=== PATIENT | female | born 1945 | race Caucasian/White ===

== ENCOUNTER 2016-11-09 15:52 | Inpatient (IN) | payer MEDICARE, BC ==
[2016-11-09] VITALS (9 sets, daily range): BP systolic 136–159; BP diastolic 58–68; PULSE 88–105; RESP 18–20; TEMP 95.7–96.9; O2SAT 92–100; Ht 157.5 cm; Wt 76.2 kg
[~2016-11-09] VITALS: Ht 157.5 cm; Wt 76.2 kg
[~2016-11-09 15:52] MED LIST: ASPI-483 PO; ATEN50TA PO; CLOP75TA33 PO; GABA-338 PO; INSU100C11 SQ; INSU100C14 SQ; LOSA50TA52 PO; NITR1PAT62 TOP; POLY17PO6 PO; ROSU20TA PO; SENN-152 PO
--- NOTE | 2016-11-09 15:52 | NUR ---
ARRIVAL pt arrived to medical unit at 1552, from [facility] by EMS, via cart. vitals and weight were taken and entered. pt was assessed and made comfortable.
[2016-11-09] MEDS ORDERED: NORMAL SALINE 1,000 ML IV SCH (16:11)
--- OUTSIDE RECORDS SUMMARY | 2016-11-09 16:13 | XMS REPORT | CCD ---
Author Author CONRAD RAMIRES Organization Unknown Address [address], [place] [id number] Phone 0 Care Team Providers Care Dermatology Physician Name Role Phone KEVIN SILVA Attending Physician [phone] Vital Signs Unknown or Not Available. Allergies Allergy Code Allergy Type Reaction Status PCN (penicillin) 0 Drug allergy Active ZOCOR 308246 Drug allergy Active CODEINE 2670 Drug allergy Active LIPITOR 531747 Drug allergy Active MORPHINE 7052 Drug allergy Active Procedures Unknown or Not Available. History of Immunizations Immunization Code Date pneumococcal, unspecified formulation 109 07/11/2011 Problems Problem Code Start Date Resolved Date Status DIABETES MELLITUS TYPE 2, UNCONTROLLED 461717325 Active HYPOKALEMIA 09380670 Active Results BASIC METABOLIC - Collect Date/Time: 09/01/2016 09:45 Test Name Code Test Result Test Units Test Ref Range GLUCOSE 213 mg/dL L=70 H=110 BUN 56 mg/dL L=7 H=18 CREATININE 1.91 mg/ dL L=0.60 H=1.30 AGE 71 YEARS GFR 25.8 L=60.0 H=120 SODIUM 138 mmol/L L=136 H=145 POTASSIUM 4.6 mmol/ L L=3.5 H=5.1 CHLORIDE 101 mmol/L L=98 H=107 CO2 29 mmol/L L=21 H=32 CALCIUM 9.2 mg/dL L=8.5 H=10.1 MAGNESIUM - Collect Date/Time: 09/01/2016 09:45 Test Name Code Test Result Test Units Test Ref Range MAGNESIUM 2.4 mg/dL L=1.8 H=2.4 Active Medications Medication Code Dose Units Frequency Route Modification Start Date/Time Lantus 100U/1ML Subcutaneous Solution 312049 45 EACH AT BEDTIME SUBCUTANEOUS 05/16/2015 08:24 Prescription Detail 45 EACH SUBCUTANEOUS AT BEDTIME Lasix 20MG Oral Tablet 696313 20 MILLIGRAMS every other day ORAL 05/16/2015 08:24 Prescription Detail 20 MILLIGRAMS ORAL every other day Losartan Potassium 50MG Oral Tablet 175092 50 MILLIGRAMS DAILY ORAL 05/16/2015 08:24 Prescription Detail 50 MILLIGRAMS ORAL DAILY Vitamin B12 1000MCG/1ML Intramuscular Solution 331572 1 EACH EVERY MONTH INTRAMUSCULAR 05/16/2015 08: 24 Prescription Detail 1 EACH INTRAMUSCULAR EVERY MONTH Atenolol 50MG Oral Tablet 819676 25 MILLIGRAMS TWICE A DAY ORAL 04/02/2015 10:15 Prescription Detail 25 MILLIGRAMS ORAL TWICE A DAY Clopidogrel 75MG Oral Tablet 247764 75 MILLIGRAMS AT BEDTIME ORAL 04/02/2015 10:15 Prescription Detail 75 MILLIGRAMS ORAL AT BEDTIME Crestor 20MG Oral Tablet 967537 20 MILLIGRAMS AT BEDTIME ORAL 04/02/2015 10:15 Prescription Detail 20 MILLIGRAMS ORAL AT BEDTIME Niacin 500MG Oral Capsule 44074257664 500 MILLIGRAMS DAILY ORAL 04/02/2015 10:15 Prescription Detail 500 MILLIGRAMS ORAL DAILY Nitro-Dur 0.2MG/1HR Transdermal Patch, Extended Release 449058 1 EACH DAILY TRANSDERMAL 04/02/2015 10:15 Prescription Detail 1 EACH TRANSDERMAL DAILY Vitamin D3 1000IU Oral Tablet 58497748148 1000 INTERNATIONAL UNITS FOUR TIMES A DAY ORAL 04/02/2015 10:15 Prescription Detail 1000 INTERNATIONAL UNITS ORAL FOUR TIMES A DAY Vitamin E 400IU Oral Tablet 328243 400 INTERNATIONAL UNITS FOUR TIMES A DAY ORAL 04/02/2015 10:15 Prescription Detail 400 INTERNATIONAL UNITS ORAL FOUR TIMES A DAY Aspirin 81MG Oral Tablet 192876 81 MILLIGRAMS DAILY ORAL 10/04/2011 09:25 Prescription Detail 81 MILLIGRAMS ORAL DAILY Medications Administered During Visit Unknown or Not Available. Encounters Unknown or Not Available. Social History Smoking Status Code Start Date End Date Unknown if ever smoked 107466660 Patient Decision Aids Unknown or Not Available. Discharge Instructions You were admitted to [facility] on 09/01/2016 09:36 You had the following tests done: BASIC METABOLIC MAGNESIUM You were discharged from [facility] on 09/01/2016 09:36 Should you have any questions prior to discharge, please contact a member of your healthcare team. If you have left the hospital and have any questions, please contact your primary care physician. Chief Complaint and Reason For Visit Chief Complaint Date of Onset LAB Function Status Unknown or Not Available. Plan of Care Unknown or Not Available. Referral/Transition of Care Unknown or Not Available.
--- OUTSIDE RECORDS SUMMARY | 2016-11-09 16:13 | XMS REPORT ---
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
--- OUTSIDE RECORDS SUMMARY | 2016-11-09 16:13 | XMS REPORT ---
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 Problem Coronary Artery Disease 414.01 Active Problem Shortness Of Breath 786.05 Active Problem 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 Active Problem Chronic obstructive pulmonary disease, unspecified J44.9 Active Problem Atherosclerotic heart disease of [place] coronary artery without angina pectoris I25.10 Active Problem Nonrheumatic aortic (valve) stenosis I35.0 Active Problem 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
--- OUTSIDE RECORDS SUMMARY | 2016-11-09 16:13 | XMS REPORT | CCD ---
Author Author CONRAD RAMIRES Organization Unknown Address [address], [place] [id number] Phone 0 Care Team Providers Care Weekday Babysitter Name Role Phone BHARAT MARCUM Attending Physician 0 BHARAT MARCUM Primary Surgeon 0 Vital Signs Unknown or Not Available. Allergies Allergy Code Allergy Type Reaction Status PCN (penicillin) 0 Drug allergy Active ZOCOR 891646 Drug allergy Active CODEINE 2670 Drug allergy Active LIPITOR 692332 Drug allergy Active MORPHINE 7052 Drug allergy Active Procedures Procedure Code Procedure Type Date CHEST [address] 02/16/2016 History of Immunizations Immunization Code Date pneumococcal, unspecified formulation 109 07/11/2011 Problems Problem Code Start Date Resolved Date Status DIABETES MELLITUS TYPE 2, UNCONTROLLED 713519418 Active HYPOKALEMIA 51624263 Active Results BASIC METABOLIC - Collect Date/Time: 02/16/2016 03:40 Test Name Code Test Result Test Units Test Ref Range GLUCOSE 278 mg/dL L=70 H=110 BUN 33 mg/dL L=7 H=18 CREATININE 1.46 mg/ dL L=0.60 H=1.30 AGE 71 YEARS GFR 35.2 SODIUM 138 mmol/L L=136 H=145 POTASSIUM 4.3 mmol/ L L=3.5 H=5.1 CHLORIDE 101 mmol/L L=98 H=107 CO2 28 mmol/L L=21 H=32 CALCIUM 8.8 mg/dL L=8.5 H=10.1 CBC W/ DIFF - Collect Date/Time: 02/16/2016 03:40 Test Name Code Test Result Test Units Test Ref Range WBC 19.9 x10^3 L=4.8 H=10.8 RBC 3.73 x10^6 L=4.20 H=5.40 HEMOGLOBIN 10.8 g/ dL L=12.0 H=16.0 HEMATOCRIT 33.3 % L=37.0 H=47.0 MCV 89 fL L=80 H=100 MCH 28.9 pg L=27.0 H=33.0 MCHC 32.3 g/dL L=33.0 H=37.0 RDW 15.9 % L=11.5 H=14.5 PLATELETS 474 x10^3 L=150 H=450 MPV 7.6 fL L=7.8 H=11.0 NEUTROPHILS 67.2 % L=40.0 H=80.0 LYMPHOCYTES 24.7 % L=20.0 H=45.0 MONOCYTES 6.9 % L=0.0 H=10.0 EOSINOPHILS 0.9 % L=0.0 H=5.0 BASOPHILS 0.3 % L=0.0 H=2.0 REFLEX MAN DIFF NO N /A UA AUTO W/ MICRO - Collect Date/Time: 02/16/2016 04:04 Test Name Code Test Result Test Units Test Ref Range COLOR Yellow N/A NORMAL: Yellow APPEARANCE Clear N/ A NORMAL: Clear GLUCOSE 500 N/A NORMAL: Negative BILIRUBIN Negative N /A NORMAL: Negative KETONE Negative N/A NORMAL: Negative SPEC GRAVITY 1.025 N /A NORMAL: 1.005-1.030 BLOOD Small N/A NORMAL: Negative PROTEIN >=300 N/A NORMAL: Negative PH 5.5 N/A NORMAL: 5.0-8.0 UROBILINOGEN 0.2 N/ A NORMAL: Negative NITRITE Negative N/ A NORMAL: Negative LEUKOCYTES Negative N/A NORMAL: Negative MICRO RBC 2-5 N/A NORMAL: 0-2 MICRO WBC 10-20 N/A NORMAL: 0-2 BACTERIA 1+ N/A NORMAL: None-Trace EPI CELLS 5-10 N/A NORMAL: 0-15 MUCUS None Seen N/A NORMAL: None-Small AMORPHOUS None Seen N/A NORMAL: None Seen YEAST None Seen N/A NORMAL: None Seen CRYSTALS None Seen N /A NORMAL: None Seen CAST None Seen N/A NORMAL: None Seen URINE CULTURE? YES N /A CULTURE URINE - Collect Date/Time: 02/16/2016 04:04 Test Name Code Test Result Test Units Test Ref Range SPEC SOURCE: R N/A Urine Culture, Routine 630-4 Final report N/A Active Medications Unknown or Not Available. Medications Administered During Visit Unknown or Not Available. Encounters Encounter Diagnosis Diagnosis Code Start Date Chronic obstructive pulmonary disease with (acute) exacerbation J441 02/16/2016 Social History Smoking Status Code Start Date End Date Unknown if ever smoked 039834118 Patient Decision Aids Unknown or Not Available. Discharge Instructions You were admitted to [facility] on 02/16/2016 03:00 with a principal diagnosis of Chronic obstructive pulmonary disease w (acute) exacerb You had the following tests done: BASIC METABOLIC CBC W/ DIFF CULTURE URINE UA AUTO W/ MICRO You were discharged from [facility] on 02/16/2016 05:25 Should you have any questions prior to discharge, please contact a member of your healthcare team. If you have left the hospital and have any questions, please contact your primary care physician. Chief Complaint and Reason For Visit Chief Complaint Date of Onset SHORTNESS OF BREATH 02/16/2016 Function Status Unknown or Not Available. Plan of Care Unknown or Not Available. Referral/Transition of Care Unknown or Not Available.
--- OUTSIDE RECORDS SUMMARY | 2016-11-09 16:13 | XMS REPORT ---
Author Kai Gant [facility] eClinical[employer] Address Unknown Phone Unavailable Care Team Providers Care International Sales Manager Name Role Phone Kai Tyler CP Unavailable Allergies, Adverse Reactions, Alerts Substance Reaction Event Type Zocor Info Not Available Drug Allergy lipitor Info Not Available Non Drug Allergy codeine nausea Non Drug Allergy morphine ? 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 Problem Atherosclerotic heart disease of [place] coronary artery without angina pectoris I25.10 Active Problem Nonrheumatic aortic (valve) stenosis I35.0 Active Problem 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 Problem Type 2 diabetes mellitus without complications E11.9 Active Problem Essential (primary) hypertension I10 Active Assessment 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 Active Problem Diabetes Mellitus, Type II, Not Stated As Uncontrolled 250.00 Active Assessment Type 2 diabetes mellitus without complications E11.9 Active Assessment Chronic obstructive pulmonary disease, unspecified J44.9 Active Problem CAD 414.01 Active Problem Dyslipidemia 272.4 Active Problem COPD 496 Active Problem Aortic Valve Stenosis 424.1 Active Assessment Atherosclerotic heart disease of [place] coronary artery without angina pectoris I25.10 Active Problem CHF, Combined Systolic & Diastolic Heart Failure, 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 Active Problem Hypertension 401.9 Active Medications Medication Code System Code Instructions Start Date End Date Status Dosage Nitrostat [facility] [address]-18 0.4 MG Sublingual every 0 hrs 1 tablet under the tongue and allow to dissolve as needed Oxygen NDC 0 2 l nc as directed Niacin [facility] [address]-20 500 MG Orally Once a day 1 tablet P40-Xozuwf [facility] 32105-06633 1 MG Orally not defined Demadex [facility] [address]-40 20 MG Orally Once a day May 02, 2015 1 tablet Nitro-Dur [facility] [address]-82 0.2 MG/HR Transdermal Once a day 1 patch to skin remove after 12 hours Iron [facility] 59963-68066 325 (65 Fe) MG Orally bid 1 tablet Humalog [facility] [address]-74 100 UNIT/ML Subcutaneous as directed Gabapentin [facility] [address]-09 300 MG Orally prn-tid 1 capsule Doxycycline Hyclate [facility] [address]-12 100 MG Orally bid 1 tablet Lantus [facility] [address]-07 100 UNIT/ML Subcutaneous not defined Nexium 24HR [facility] [address]-11 20 MG Orally prn 1 capsule Atenolol [facility] [address]-06 50 MG Orally bid 1/2 tablet Aspirin [facility] [address]-22 81 MG Orally Once a day 1 tablet Losartan Potassium [facility] [address]-70 50 MG Orally qd 1 tab Plavix [facility] [address]-12 75 MG Orally Once a day 1 tablet Vitamin D [facility] 44405-34727 1000 UNIT Orally Once a day 1 capsule Crestor [facility] [address]-63 20 MG Orally Once a day 1 tablet Vitamin E [facility] [address]-96 400 UNIT Orally Once a day 1 capsule Procedures Procedure Coding System Code Date Office Visit, Est Pt., Level 3 CPT-4 56298 May 29, 2015 Vital Signs Date/Time: May 29, 2015 BMI 31.09 Index Weight 170.0 lbs Height 62 in Cardiac Monitoring Heart Rate 71 /min Oximetry 90% % Blood Pressure Diastolic 54 mm Hg Blood Pressure Systolic 128 mm Hg Results No Known Results Summary Purpose eClinicalWorks Submission
--- OUTSIDE RECORDS SUMMARY | 2016-11-09 16:14 | XMS REPORT | Continuity of Care Document ---
Author Author [facility] Organization [facility] Address Unknown Phone Unavailable Allergies Active Description Code Type Severity Reaction Onset Reported/Identified Relationship to Patient Clinical Status Yes atorvastatin calcium atorvastatin calcium Drug Allergy Unknown N/A 06/24/2012 Yes morphine morphine Drug Allergy Severe PASSES OUT 01/19/2014 Yes codeine codeine Drug Allergy Moderate RASH NAUSEA 01/19/2014 Yes Penicillins Penicillins Drug Allergy Moderate RASH 01/19/2014 Yes simvastatin simvastatin Drug Allergy Mild MUSCLE PAIN 01/19/2014 Yes atorvastatin calcium atorvastatin calcium Drug Allergy Unknown MUSCLE PAIN 01/19/2014 Medications Problems Date Dx Coded Attending Type Code Diagnosis Diagnosed By 06/24/2012 Kai Tyler MD 238.71 ESSENTIAL THROMBOCYTHEMIA 06/24/2012 Kai Tyler MD 250.60 DIAB W NEURO MANIFEST, TYPE II OR UNSPEC TYPE, NOT 06/24/2012 Kai Tyler MD 250.80 DIAB W OTH SPEC MANIFEST, TYPE II OR UNSPEC TYPE, 06/24/2012 Kai Tyler MD 272.4 HYPERLIPIDEMIA NEC/NOS 06/24/2012 Kai Tyler MD 276.8 HYPOPOTASSEMIA 06/24/2012 Kai Tyler MD 285.9 ANEMIA NOS 06/24/2012 Kai Tyler MD 300.00 ANXIETY STATE NOS 06/24/2012 Kai Tyler MD 357.2 NEUROPATHY IN DIABETES 06/24/2012 Kai Tyler MD 401.9 HYPERTENSION NOS 06/24/2012 Kai Tyler MD 410.72 AC MYOCARD INFARCT,SUBENDO INFARCT,SUBSEQ EPISODE 06/24/2012 Kai Tyler MD 414.01 CORONARY ATHEROSCLEROSIS OF [place] CORONARY VESSEL 06/24/2012 Kai Tyler MD 428.0 CONGESTIVE HEART FAILURE NOS 06/24/2012 Kai Tyler MD 786.50 CHEST PAIN NOS 06/24/2012 Kai Tyler MD V14.0 HX-PENICILLIN ALLERGY 06/24/2012 Kai Tyler MD V14.5 HX-NARCOTIC ALLERGY 06/24/2012 Kai Tyler MD V58.66 LONG-TERM (CURRENT) USE OF ASPIRIN 06/24/2012 Kai Tyler MD V58.67 LONG-TERM (CURRENT) USE OF INSULIN 01/19/2014 Kai Tyler MD 250.60 DIAB W NEURO MANIFEST, TYPE II OR UNSPEC TYPE, NOT 01/19/2014 Kai Tyler MD 272.4 HYPERLIPIDEMIA NEC/NOS 01/19/2014 Kai Tyler MD 327.23 OBSTRUCTIVE SLEEP APNEA (ADULT) (PEDIATRIC ) 01/19/2014 Kai Tyler MD 357.2 NEUROPATHY IN DIABETES 01/19/2014 Kai Tyler MD 401.9 HYPERTENSION NOS 01/19/2014 Kai Tyler MD 410.71 AC MYOCARDIAL INFARCT,SUBENDO INFARCT, INITIAL EPIS 01/19/2014 Kai Tyler MD 412 OLD MYOCARDIAL INFARCT 01/19/2014 Kai Tyler MD 414.01 CORONARY ATHEROSCLEROSIS OF [place] CORONARY VESSEL 01/19/2014 Kai Tyler MD 428.0 CONGESTIVE HEART FAILURE NOS 01/19/2014 Kai Tyler MD 799.02 HYPOXEMIA 01/19/2014 Kai Tyler MD V15.82 HISTORY OF TOBACCO USE Procedures Code Description Performed By Performed On 37.22 LEFT HEART CARDIAC CATH Kai Tyler MD 06/24/2012 88.53 LT HEART ANGIOCARDIOGRAM Kai Tyler MD 06/24/2012 88.56 CORONAR ARTERIOGR-2 CATH Kai Tyler MD 06/24/2012 00.40 PROCEDURE ON SINGLE VESSEL Eusebio Soria MD 01/19/2014 00.45 INSERTION OF ONE VASCULAR STENT Eusebio Soria MD 01/19/2014 00.66 PERCUTANEOUS TRANSLUMINAL CORONARY ANGIOPLASTY [PT Eusebio Soria MD 01/19/2014 36.07 INSRT OF DRUG-ELUTING CORON ARTERY STENTS(S) Eusebio Soria MD 01/19/2014 37.22 LEFT HEART CARDIAC CATH Kai Tyler MD 01/19/2014 88.53 LT HEART ANGIOCARDIOGRAM Kai Tyler MD 01/19/2014 88.56 CORONAR ARTERIOGR-2 CATH Kai Tyler MD 01/19/2014 Results Test Result Range MRSA SURVEILLANCE SCREEN - 06/24/12 11:35 Uncategorized BLOOD CULTURE - 06/24/12 11:42 Uncategorized B-TYPE NATRIURETIC PEPTIDE - 06/24/12 11:56 B-TYPE NATRIURETIC PEPTIDE 159 pg/mL < 100 CBC - 06/24/12 11:56 MEAN CELL HGB 30.6 pg 27.0-33.0 MEAN CELL HGB CONCENTRATION 33.2 g/dL 32.0-37.0 MEAN CELL VOLUME 92.3 fl 80.0-100.0 RED BLOOD CELL 2.84 m/cumm 4.00-6.00 RED CELL DISTRIBUTION WIDTH 13.7 % 11.0- 15.6 WHITE BLOOD CELL 11.0 k/cumm 5.0-10.0 HEMOGLOBIN 8.7 gm/dL 12.0-16.0 HEMATOCRIT 26.2 % 37.0-47.0 PLATELET COUNT 494 k/cumm 150-400 HEMOGLOBIN A1C - 06/24/12 11:56 HEMOGLOBIN A1C 8.1 % < 5.7 PROTHROMBIN TIME WITH INR - 06/24/12 11:56 INTERNATIONAL NORMAL RATIO 1.1 0.9-1.1 PROTHROMBIN TIME 11.3 sec 9.3-12.2 PARTIAL THROMBOPLASTIN TIME - 06/24/12 11:56 PARTIAL THROMBOPLASTIN TIME 27 sec 24-36 METABOLIC PANEL, COMPREHN - 06/24/12 11:56 POTASSIUM 3.3 mmol/L 3.5-5.3 EST GFR (MDRD) > 60 mL/min > 59 ANION GAP 7 mmol/L 5-15 EST CrCl (CG) 53 mL/min > 59 GLUCOSE 95 mg/dL 70-99 CALCIUM 8.8 mg/dL 8.5-10.1 BLOOD UREA NITROGEN 11 mg/dL 7-20 CREATININE 0.8 mg/dL 0.6-1.0 SODIUM 139 mmol/L 135-148 CHLORIDE 99 mmol/L 98-110 AST/SGOT 21 Units/L 10-37 ALT/SGPT 16 Units/L < 66 CARBON DIOXIDE 33 mmol/L 21-32 TOTAL PROTEIN 7.7 gm/dL 6.4-8.2 ALBUMIN 2.7 gm/dL 3.4-5.0 BILI TOTAL 0.7 mg/dL 0.0-1.0 ALKALINE PHOSPHATASE TOTAL 57 Units/L 50- 136 LIPID PANEL - 06/24/12 11:56 CHOLESTEROL/HDL RATIO 5.0 < 5.0 LDL CHOLESTEROL 120 mg/dL < 100 VLDL CHOLESTEROL 28 mg/dL < 30 TRIGLYCERIDES 141 mg/dL < 150 CHOLESTEROL 185 mg/dL < 200 HDL CHOLESTEROL 37 mg/dL > 39 CREATINE KINASE (CK/CPK) - 06/24/12 11:56 CREATINE KINASE (CK/CPK) 48 Units/L < 193 CK MB - 06/24/12 11:56 CK MB < 0.5 ng/mL < 4.0 MAGNESIUM - 06/24/12 11:56 MAGNESIUM 1.5 mg/dL 1.8-2.4 TROPONIN I - 06/24/12 11:56 TROPONIN I 0.07 ng/mL < 0.07 BLOOD CULTURE - 06/24/12 11:56 Uncategorized URINALYSIS, ROUTINE - 06/24/12 12:05 UA LEUKOCYTE ESTERASE DIPSTICK NEGATIVE NEGATIVE UA NITRITE DIPSTICK NEGATIVE NEGATIVE UA PROTEIN DIPSTICK TRACE NEGATIVE UA GLUCOSE DIPSTICK NEGATIVE NEGATIVE UA KETONE DIPSTICK NEGATIVE NEGATIVE UA UROBILINOGEN DIPSTICK NORMAL NORMAL UA BILIRUBIN DIPSTICK NEGATIVE NEGATIVE UA BLOOD DIPSTICK NEGATIVE NEGATIVE UA EPITHELIAL CELLS 2+ epi/hpf 0 - 1+ UA RBC 0 rbc/hpf 0 - 3 UA VOLUME FOR EXAM 12.0 mL (12mL STD) UA WBC 2-5 wbc/hpf 0 - 5 UA SPECIFIC GRAVITY 1.008 1.015-1.025 UR PH 5.0 5.0-7.0 GLUCOSE (POC) - 06/24/12 17:01 GLUCOSE (POC) 159 mg/dL 70-99 CREATINE KINASE (CK/CPK) - 06/24/12 19:07 CREATINE KINASE (CK/CPK) 49 Units/L < 193 CK MB - 06/24/12 19:07 CK MB < 0.5 ng/mL < 4.0 TROPONIN I - 06/24/12 19:07 TROPONIN I 0.07 ng/mL < 0.07 GLUCOSE (POC) - 06/24/12 20:49 GLUCOSE (POC) 34 mg/dL 70-99 GLUCOSE (POC) - 06/24/12 21:19 GLUCOSE (POC) 133 mg/dL 70-99 GLUCOSE (POC) - 06/24/12 23:34 GLUCOSE (POC) 88 mg/dL 70-99 CBC W/DIFF - 06/25/12 03:33 BASOPHIL # 0.1 k/cumm 0.0-0.2 BASOPHIL % 1 % 0-1 EOSINOPHIL # 0.5 k/cumm 0.1-0.5 EOSINOPHIL % 5 % 2-4 GRANULOCYTE # 6.8 k/cumm 2.0-9.0 GRANULOCYTE % 62 % 50-75 LYMPHOCYTE # 2.7 k/cumm 1.0-4.0 LYMPHOCYTE % 24 % 20-30 MEAN CELL HGB 30.7 pg 27.0-33.0 MEAN CELL HGB CONCENTRATION 31.4 g/dL 32.0-37.0 MEAN CELL VOLUME 97.8 fl 80.0-100.0 MONOCYTE # 0.9 k/cumm 0.1-1.0 MONOCYTE % 8 % 4-6 RED BLOOD CELL 2.77 m/cumm 4.00-6.00 RED CELL DISTRIBUTION WIDTH 13.7 % 11.0- 15.6 WHITE BLOOD CELL 10.9 k/cumm 5.0-10.0 HEMOGLOBIN 8.5 gm/dL 12.0-16.0 HEMATOCRIT 27.1 % 37.0-47.0 PLATELET COUNT 535 k/cumm 150-400 METABOLIC PANEL, BASIC - 06/25/12 03:33 POTASSIUM 4.1 mmol/L 3.5-5.3 EST GFR (MDRD) > 60 mL/min > 59 ANION GAP 8 mmol/L 5-15 EST CrCl (CG) 47 mL/min > 59 GLUCOSE 130 mg/dL 70-99 CALCIUM 8.7 mg/dL 8.5-10.1 BLOOD UREA NITROGEN 16 mg/dL 7-20 CREATININE 0.9 mg/dL 0.6-1.0 SODIUM 135 mmol/L 135-148 CHLORIDE 97 mmol/L 98-110 CARBON DIOXIDE 36.2 mmol/L 22.0-30.0 CREATINE KINASE (CK/CPK) - 06/25/12 03:33 CREATINE KINASE (CK/CPK) 26 Units/L < 193 CK MB - 06/25/12 03:33 CK MB < 0.5 ng/mL < 4.0 TROPONIN I - 06/25/12 03:33 TROPONIN I < 0.04 ng/mL < 0.07 IRON W/ BINDING CAPACITY - 06/25/12 03:33 IRON SATURATION 12 % SAT 11-46 IRON BINDING CAPACITY, TOTAL 242 mcg/dL 250-450 IRON 28 mcg/dL 35-150 VITAMIN B12 - 06/25/12 03:33 VITAMIN B12 186 pg/mL 211-911 FOLIC ACID,SERUM - 12/15/12 03:33 FOLIC ACID,SERUM > 24.0 ng/mL > 3.4 GLUCOSE (POC) - 06/25/12 12:07 GLUCOSE (POC) 203 mg/dL 70-99 GLUCOSE (POC) - 06/25/12 18:00 GLUCOSE (POC) 171 mg/dL 70-99 GLUCOSE (POC) - 06/25/12 20:21 GLUCOSE (POC) 195 mg/dL 70-99 B-TYPE NATRIURETIC PEPTIDE - 06/26/12 04:55 B-TYPE NATRIURETIC PEPTIDE 84 pg/mL < 100 CBC - 06/26/12 04:55 MEAN CELL HGB 30.0 pg 27.0-33.0 MEAN CELL HGB CONCENTRATION 31.7 g/dL 32.0-37.0 MEAN CELL VOLUME 94.9 fl 80.0-100.0 RED BLOOD CELL 2.93 m/cumm 4.00-6.00 RED CELL DISTRIBUTION WIDTH 13.6 % 11.0- 15.6 WHITE BLOOD CELL 9.5 k/cumm 5.0-10.0 HEMOGLOBIN 8.8 gm/dL 12.0-16.0 HEMATOCRIT 27.8 % 37.0-47.0 PLATELET COUNT 543 k/cumm 150-400 METABOLIC PANEL, BASIC - 06/26/12 04:55 POTASSIUM 3.6 mmol/L 3.5-5.3 EST GFR (MDRD) > 60 mL/min > 59 ANION GAP 6 mmol/L 5-15 EST CrCl (CG) 53 mL/min > 59 GLUCOSE 149 mg/dL 70-99 CALCIUM 8.7 mg/dL 8.5-10.1 BLOOD UREA NITROGEN 16 mg/dL 7-20 CREATININE 0.8 mg/dL 0.6-1.0 SODIUM 138 mmol/L 135-148 CHLORIDE 97 mmol/L 98-110 CARBON DIOXIDE 35 mmol/L 21-32 GLUCOSE (POC) - 06/26/12 11:51 GLUCOSE (POC) 174 mg/dL 70-99 GRAM STAIN SPUTUM - SPUTUM CULTURE - 06/26/12 15:15 Uncategorized GLUCOSE (POC) - 06/26/12 17:04 GLUCOSE (POC) 98 mg/dL 70-99 GLUCOSE (POC) - 06/26/12 20:34 GLUCOSE (POC) 205 mg/dL 70-99 CBC - 06/27/12 05:12 MEAN CELL HGB 30.0 pg 27.0-33.0 MEAN CELL HGB CONCENTRATION 31.5 g/dL 32.0-37.0 MEAN CELL VOLUME 95.3 fl 80.0-100.0 RED BLOOD CELL 3.17 m/cumm 4.00-6.00 RED CELL DISTRIBUTION WIDTH 13.5 % 11.0- 15.6 WHITE BLOOD CELL 9.6 k/cumm 5.0-10.0 HEMOGLOBIN 9.5 gm/dL 12.0-16.0 HEMATOCRIT 30.2 % 37.0-47.0 PLATELET COUNT 551 k/cumm 150-400 METABOLIC PANEL, BASIC - 06/27/12 05:12 POTASSIUM 4.2 mmol/L 3.5-5.3 EST GFR (MDRD) > 60 mL/min > 59 ANION GAP 4 mmol/L 5-15 EST CrCl (CG) 47 mL/min > 59 GLUCOSE 120 mg/dL 70-99 CALCIUM 9.4 mg/dL 8.5-10.1 BLOOD UREA NITROGEN 18 mg/dL 7-20 CREATININE 0.9 mg/dL 0.6-1.0 SODIUM 139 mmol/L 135-148 CHLORIDE 98 mmol/L 98-110 CARBON DIOXIDE 37 mmol/L 21-32 GLUCOSE (POC) - 06/27/12 06:25 GLUCOSE (POC) 128 mg/dL 70-99 GLUCOSE (POC) - 06/27/12 11:57 GLUCOSE (POC) 223 mg/dL 70-99 GLUCOSE (POC) - 06/27/12 18:04 GLUCOSE (POC) 75 mg/dL 70-99 GLUCOSE (POC) - 06/27/12 20:53 GLUCOSE (POC) 260 mg/dL 70-99 CBC - 06/28/12 05:03 MEAN CELL HGB 30.2 pg 27.0-33.0 MEAN CELL HGB CONCENTRATION 31.7 g/dL 32.0-37.0 MEAN CELL VOLUME 95.1 fl 80.0-100.0 RED BLOOD CELL 3.08 m/cumm 4.00-6.00 RED CELL DISTRIBUTION WIDTH 13.4 % 11.0- 15.6 WHITE BLOOD CELL 9.8 k/cumm 5.0-10.0 HEMOGLOBIN 9.3 gm/dL 12.0-16.0 HEMATOCRIT 29.3 % 37.0-47.0 PLATELET COUNT 563 k/cumm 150-400 METABOLIC PANEL, COMPREHN - 06/28/12 05:03 POTASSIUM 4.4 mmol/L 3.5-5.3 EST GFR (MDRD) 59 mL/min > 59 ANION GAP 9 mmol/L 5-15 EST CrCl (CG) 43 mL/min > 59 GLUCOSE 117 mg/dL 70-99 CALCIUM 9.5 mg/dL 8.5-10.1 BLOOD UREA NITROGEN 19 mg/dL 7-20 CREATININE 1.0 mg/dL 0.6-1.0 SODIUM 138 mmol/L 135-148 CHLORIDE 96 mmol/L 98-110 AST/SGOT 21 Units/L 10-37 ALT/SGPT 15 Units/L < 66 CARBON DIOXIDE 33 mmol/L 21-32 TOTAL PROTEIN 7.1 gm/dL 6.4-8.2 ALBUMIN 2.4 gm/dL 3.4-5.0 BILI TOTAL 0.8 mg/dL 0.0-1.0 ALKALINE PHOSPHATASE TOTAL 52 Units/L 50- 136 GLUCOSE (POC) - 06/28/12 05:53 GLUCOSE (POC) 118 mg/dL 70-99 GLUCOSE (POC) - 06/28/12 12:09 GLUCOSE (POC) 215 mg/dL 70-99 B-TYPE NATRIURETIC PEPTIDE - 01/19/14 09:01 B-TYPE NATRIURETIC PEPTIDE 122 pg/mL < 100 CBC - 01/19/14 09:01 MEAN CELL HGB 31.1 pg 27.0-33.0 MEAN CELL HGB CONCENTRATION 32.4 g/dL 32.0-37.0 MEAN CELL VOLUME 95.8 fl 80.0-100.0 RED BLOOD CELL 3.12 m/cumm 4.00-6.00 RED CELL DISTRIBUTION WIDTH 13.1 % 11.0- 15.6 WHITE BLOOD CELL 10.7 k/cumm 5.0-10.0 HEMOGLOBIN 9.7 gm/dL 12.0-16.0 HEMATOCRIT 29.9 % 37.0-47.0 PLATELET COUNT 366 k/cumm 150-400 HEMOGLOBIN A1C - 01/19/14 09:01 HEMOGLOBIN A1C 10.2 % < 5.7 PROTHROMBIN TIME WITH INR - 01/19/14 09:01 INTERNATIONAL NORMAL RATIO 0.9 0.9-1.1 PROTHROMBIN TIME 10.1 sec 9.3-12.2 PARTIAL THROMBOPLASTIN TIME - 01/19/14 09:01 PARTIAL THROMBOPLASTIN TIME 27 sec 24-36 METABOLIC PANEL, COMPREHN - 01/19/14 09:01 POTASSIUM 4.4 mmol/L 3.5-5.3 EST GFR (MDRD) 43 mL/min > 59 ANION GAP 9 mmol/L 5-15 EST CrCl (CG) 29 mL/min > 59 GLUCOSE 273 mg/dL 70-99 CALCIUM 9.7 mg/dL 8.5-10.1 BLOOD UREA NITROGEN 43 mg/dL 7-20 CREATININE 1.3 mg/dL 0.6-1.0 SODIUM 138 mmol/L 135-148 CHLORIDE 101 mmol/L 98-110 AST/SGOT 53 Units/L 10-37 ALT/SGPT 24 Units/L < 66 CARBON DIOXIDE 28 mmol/L 21-32 TOTAL PROTEIN 7.9 gm/dL 6.4-8.2 ALBUMIN 3.3 gm/dL 3.4-5.0 BILI TOTAL 0.5 mg/dL 0.0-1.0 ALKALINE PHOSPHATASE TOTAL 56 IU/L 45- 117 LIPASE - 01/19/14 09:01 LIPASE 104 Units/L 73-393 CREATINE KINASE (CK/CPK) - 01/19/14 09:01 CREATINE KINASE (CK/CPK) 504 Units/L < 193 CK MB - 01/19/14 09:01 CK MB 34.7 ng/mL < 4.0 THYROID STIM HORMONE (TSH) - 01/19/14 09:01 THYROID STIM HORMONE (TSH) 0.73 uIU/mL 0.34-4.82 TROPONIN I - 01/19/14 09:01 TROPONIN I 13.40 ng/mL < 0.07 GLUCOSE (POC) - 01/19/14 12:28 GLUCOSE (POC) 264 mg/dL 70-99 GLUCOSE (POC) - 01/19/14 15:24 GLUCOSE (POC) 225 mg/dL 70-99 GLUCOSE (POC) - 01/19/14 17:40 GLUCOSE (POC) 187 mg/dL 70-99 GLUCOSE (POC) - 01/19/14 21:58 GLUCOSE (POC) 256 mg/dL 70-99 CBC - 01/20/14 06:41 MEAN CELL HGB 31.1 pg 27.0-33.0 MEAN CELL HGB CONCENTRATION 32.1 g/dL 32.0-37.0 MEAN CELL VOLUME 96.9 fl 80.0-100.0 RED BLOOD CELL 3.22 m/cumm 4.00-6.00 RED CELL DISTRIBUTION WIDTH 13.4 % 11.0- 15.6 WHITE BLOOD CELL 10.6 k/cumm 5.0-10.0 HEMOGLOBIN 10.0 gm/dL 12.0-16.0 HEMATOCRIT 31.2 % 37.0-47.0 PLATELET COUNT 371 k/cumm 150-400 TROPONIN I - 01/20/14 06:41 TROPONIN I 7.85 ng/mL < 0.07 METABOLIC PANEL, COMPREHN - 01/20/14 06:42 POTASSIUM 4.3 mmol/L 3.5-5.3 EST GFR (MDRD) 34 mL/min > 59 ANION GAP 8 mmol/L 5-15 EST CrCl (CG) 24 mL/min > 59 GLUCOSE 186 mg/dL 70-99 CALCIUM 9.0 mg/dL 8.5-10.1 BLOOD UREA NITROGEN 44 mg/dL 7-20 CREATININE 1.6 mg/dL 0.6-1.0 SODIUM 140 mmol/L 135-148 CHLORIDE 104 mmol/L 98-110 AST/SGOT 38 Units/L 10-37 ALT/SGPT 21 Units/L < 66 CARBON DIOXIDE 28 mmol/L 21-32 TOTAL PROTEIN 7.6 gm/dL 6.4-8.2 ALBUMIN 3.1 gm/dL 3.4-5.0 BILI TOTAL 0.6 mg/dL 0.0-1.0 ALKALINE PHOSPHATASE TOTAL 54 IU/L 45- 117 LIPID PANEL - 01/20/14 06:42 CHOLESTEROL/HDL RATIO 4.9 < 5.0 LDL CHOLESTEROL 130 mg/dL < 100 VLDL CHOLESTEROL 44 mg/dL < 30 TRIGLYCERIDES 220 mg/dL < 150 CHOLESTEROL 219 mg/dL < 200 HDL CHOLESTEROL 45 mg/dL > 39 GLUCOSE (POC) - 01/20/14 06:45 GLUCOSE (POC) 183 mg/dL 70-99 GLUCOSE (POC) - 01/20/14 13:00 GLUCOSE (POC) 195 mg/dL 70-99 Encounters ACCT No. Visit Date/Time Discharge Status Pt. Type Provider Facility Loc./Unit Complaint [id number] 01/19/2014 04:55:00 2013 14:40:00 DIS Inpatient Jayson MOSELEY, [facility] W.3CE [id number] 06/24/2012 10:48:00 2011 18:20:00 DIS Inpatient Jayson MOSELEY, [facility] W.3TN
--- OUTSIDE RECORDS SUMMARY | 2016-11-09 16:14 | XMS REPORT ---
Author Kai Gant [facility] [employer] Address Unknown Phone Unavailable Care Team Providers Care Superintendent Operations Division Name Role Phone Kai Tyler CP Unavailable [...] J44.9 Active Problem Atherosclerotic heart disease of [place] coronary artery without angina pectoris I25.10 Active [...]
--- OUTSIDE RECORDS SUMMARY | 2016-11-09 16:14 | XMS REPORT ---
Author Kai Gant [facility] [employer] Address Unknown Phone Unavailable Care Team Providers Care [employer] Electric[employer] Name Role Phone Kai Tyler CP Unavailable [...] diastolic (congestive) heart failure I50.42 Active Assessment Type 2 diabetes mellitus without complications E11.9 Active Problem Chronic obstructive pulmonary disease, unspecified J44.9 Active Assessment Essential (primary) hypertension I10 Active Assessment Nonrheumatic aortic (valve) stenosis I35.0 Active Problem Atherosclerotic heart disease of [place] coronary artery without angina pectoris I25.10 Active Problem Nonrheumatic aortic (valve) stenosis I35.0 Active Problem 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 Problem Type 2 diabetes mellitus without complications E11.9 Active Problem Essential (primary) hypertension I10 Active Assessment Atherosclerotic heart disease of [place] coronary artery without angina pectoris I25.10 Active Problem Diabetes Mellitus, Type II, Not Stated As Uncontrolled 250.00 Active Assessment Chronic obstructive pulmonary disease, unspecified J44.9 Active Assessment 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 Active Problem CAD 414.01 Active Problem Dyslipidemia 272.4 Active Problem COPD 496 Active Problem Aortic Valve Stenosis 424.1 Active Assessment 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 Problem CHF, Combined Systolic & Diastolic Heart Failure, 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 Active Problem Hypertension 401.9 Active Medications Medication Code System Code Instructions Start Date End Date Status Dosage Nitro-Dur [facility] [address]-07 0.2 MG/HR Transdermal Once a day 1 patch to skin remove after 12 hours Nitrostat [facility] [address]-53 0.4 MG Sublingual every 0 hrs 1 tablet under the tongue and allow to dissolve as needed Aspirin [facility] [address]-17 81 MG Orally Once a day 1 tablet Plavix [facility] [address]-83 75 MG Orally Once a day 1 tablet Vitamin E [facility] [address]-37 400 UNIT Orally Once a day 1 capsule Lantus [facility] [address]-56 100 UNIT/ML Subcutaneous not defined Atenolol [facility] [address]-21 50 MG Orally Once a day 1/2 tablet Demadex [facility] [address]-46 20 MG Orally Once a day 1 tablet Crestor [facility] [address]-90 20 MG Orally Once a day 1 tablet O24-Rrizbq [facility] 59650-[address]256 1 MG Orally not defined Doxycycline Hyclate [facility] [address]-39 100 MG Orally bid 1 tablet Oxygen ND 0 2 l nc as directed Nexium 24HR [facility] [address]-57 20 MG Orally Once a day 1 capsule Losartan Potassium [facility] [address]-82 50 MG Orally qd 1 tab Humalog [facility] [address]-83 100 UNIT/ML Subcutaneous as directed Gabapentin [facility] [address]-48 300 MG Orally prn 1 capsule Cranberry [facility] 22474-49432 500 MG Orally as directed Vitamin D [facility] 15944-05642 1000 UNIT Orally Once a day 1 capsule Niacin [facility] [address]-12 500 MG Orally Once a day 1 tablet Procedures Procedure Coding System Code Date Office Visit, Est Pt., Level 3 CPT-4 94148 May 01, 2015 Vital Signs Date/Time: May 01, 2015 BMI 30.36 Index Weight 166.0 lbs Height 62 in Cardiac Monitoring Heart Rate 77 /min Oximetry 90% % Blood Pressure Diastolic 70 mm Hg Blood Pressure Systolic 136 mm Hg Results No Known Results Summary Purpose eClinicalWorks Submission
--- OUTSIDE RECORDS SUMMARY | 2016-11-09 16:14 | XMS REPORT | Referral Summary ---
Author Organization Unknown Address Unknown Phone Unavailable Encounter VC Date(s): 08/13/14 - 08/16/14 [address] [place] [address] Discharge Diagnosis: Bradycardia Discharge Diagnosis: Near syncope Discharge Diagnosis: Anemia Discharge Disposition: Home or Self Care Attending Physician: Jessa Son MD Admitting Physician: Nicholas Haddad MD Vital Signs Most recent to 1 oldest [Reference Range]: Temperature Oral 36.6 degC [35.8-37.3 degC] (08/16/14 12:51 PM) Peripheral Pulse 70 bpm Rate [60-100 bpm] (08/16/14 3:29 PM) Heart Rate Monitored 60 bpm [60-100 bpm] (08/13/14 4:00 PM) Respiratory Rate 18 br/min [14-20 br/min] (08/16/14 12:51 PM) Blood Pressure 171/63 mmHg [90-140/60-90 mmHg] *HI* (08/16/14 3:29 PM) Mean Arterial 90 mmHg Pressure, Cuff (08/13/14 4:00 PM) Most recent to 1 oldest [Reference Range]: SpO2 92 % (08/16/14 12:51 PM) Problem List Condition Effective Dates Status Health Status Informant Acute Active pain(Confirmed) At risk for unstable Active blood glucose level(Confirmed)1 Bowel Active dysfunction(Confirme d)2 Congestive heart Active patient failure(Confirmed) Coronary artery Active patient disease(Confirmed) Hypertension(Confirm Active patient ed) Impaired gas Active exchange(Confirmed)3 Myocardial Active patient infarction(Confirmed ) Tobacco Active patient user(Confirmed) 1Problem added automatically by system based on initiation of At Risk for Unstable Blood Glucose Plan of Care 2Problem added automatically by system based on initiation of Bowel Dysfunction Plan of Care 3Problem added automatically by system based on initiation of Impaired Gas Exchange Plan of Care Allergies, Adverse Reactions, Alerts Substance Reaction Severity Status codeine Active morphine Active penicillin Active Medications acetaminophen 325 mg oral tablet 2 tabs, Oral, q4hr, Other (See Comment), 0 Refill(s) Start Date: 08/16/14 Status: Ordered aspirin 81 mg, Oral, Daily, 0 Refill(s) Start Date: 08/13/14 Status: Ordered atenolol 25 mg oral tablet 1 tabs, Oral, Daily, 0 Refill(s) Start Date: 08/16/14 Status: Ordered atenolol 50 mg oral tablet 0.05 tabs, Oral, Daily, # 1.5 tabs, 0 Refill(s), other reason (Rx) Start Date: 08/16/14 Status: Ordered Colace 100 mg oral capsule 1 caps, Oral, BID, Constipation, 0 Refill(s) Start Date: 08/16/14 Status: Ordered Cranberry oral tablet 1 tabs, Oral, Daily, 0 Refill(s) Start Date: 08/13/14 Status: Ordered Fish Oil 2 caps, Oral, Daily, 0 Refill(s) Start Date: 08/13/14 Status: Ordered HumaLOG 21 units, SubCutaneous, TIDAC, 0 Refill(s) Start Date: 08/13/14 Status: Ordered Keflex 500 mg oral capsule 1 caps, Oral, q8hr, # 12 caps, 0 Refill(s) Start Date: 08/16/14 Stop Date: 08/20/14 Status: Ordered Lantus 50 units, SubCutaneous, Bedtime (once a day), 0 Refill(s) Start Date: 08/13/14 Status: Ordered meclizine 25 mg oral tablet 1 tabs, Oral, q8hr, # 8 tabs, 0 Refill(s), other reason (Rx) Start Date: 08/16/14 Stop Date: 08/18/14 Status: Ordered niacin 500 mg, Oral, Daily, 0 Refill(s) Start Date: 08/13/14 Status: Ordered nitroglycerin 0.2 mg/hr transdermal film, extended release 1 patches, TransDermal, Daily, 0 Refill(s) Start Date: 08/13/14 Status: Ordered Norvasc 5 mg oral tablet 1 tabs, Oral, Daily, 0 Refill(s) Start Date: 08/16/14 Status: Ordered Plavix 75 mg, Oral, Bedtime (once a day), 0 Refill(s) Start Date: 08/13/14 Status: Ordered pravastatin 60 mg, Oral, Bedtime (once a day), 0 Refill(s) Start Date: 08/13/14 Status: Ordered PriLOSEC 40 mg oral delayed release capsule 1 caps, Oral, Bedtime (once a day), # 30 caps, 0 Refill(s) Start Date: 08/16/14 Status: Ordered Vitamin D3 2 caps, Oral, Daily, 0 Refill(s) Start Date: 08/13/14 Status: Ordered vitamin E 2 caps, Oral, Daily, 0 Refill(s) Start Date: 08/13/14 Status: Ordered Results Hematology Most recent to 1 oldest [Reference Range]: WBC [4.8-10.8 K/uL] 12.3 K/uL *HI* (08/16/14 9:43 AM) RBC [4.00-5.20 M/uL] 3.34 M/uL *LOW* (08/16/14 9:43 AM) Hgb [12.0-16.0 9.7 gm/dL gm/dL] *LOW* (08/16/14 9:43 AM) Hct [37.0-47.0 %] 30.0 % *LOW* (08/16/14 9:43 AM) MCV [82.0-99.0 fL] 89.8 fL (08/16/14 9:43 AM) MCH [27.0-32.0 pg] 29.0 pg (08/16/14 9:43 AM) MCHC [32.0-36.0 32.3 gm/dL gm/dL] (08/16/14 9:43 AM) RDW [11.5-14.5 %] 15.3 % *HI* (08/16/14 9:43 AM) Platelet [150-400 536 K/uL K/uL] *HI* (08/16/14 9:43 AM) MPV [9.4-12.4 fL] 8.7 fL *LOW* (08/16/14 9:43 AM) Immature 0.2 % Granulocytes (08/14/14 7:54 AM) [0.0-1.0 %] Neutrophils [51-75 81 % %] *HI* (08/14/14 7:54 AM) Lymphocytes [20-46 17 % %] *LOW* (08/14/14 7:54 AM) Monocytes [4-11 %] 1 % *LOW* (08/14/14 7:54 AM) Eosinophils [0-4 %] 0 % (08/14/14 7:54 AM) Basophils [0-2 %] 0 % (08/14/14 7:54 AM) Neutro Absolute 8.17 THOUS [1.90-7.00 THOUS] *HI* (08/14/14 7:54 AM) Lymph Absolute 1.72 THOUS [0.80-3.30 THOUS] (08/14/14 7:54 AM) [place] Absolute 0.14 THOUS [0.30-1.00 THOUS] *LOW* (08/14/14 7:54 AM) Eos Absolute 0.00 THOUS [0.00-0.50 THOUS] (08/14/14 7:54 AM) Baso Absolute 0.01 THOUS [0.00-0.20 THOUS] (08/14/14 7:54 AM) Nucleated RBC 0.0 /100 WBC Automated [0 /100 (08/14/14 7:54 AM) WBC] Chemistry Most recent to 1 oldest [Reference Range]: Sodium Lvl [136-144 141 mEq/L mEq/L] (08/16/14 9:43 AM) Potassium Lvl 3.5 mEq/L [3.6-5.1 mEq/L] *LOW* (08/16/14 9:43 AM) Chloride [99-109 107 mEq/L mEq/L] (08/16/14 9:43 AM) CO2 [22-32 mEq/L] 24 mEq/L (08/16/14 9:43 AM) AGAP [3-20] 10 (08/16/14 9:43 AM) BUN [4-20 mg/dL] 34 mg/dL *HI* (08/16/14 9:43 AM) Glucose Lvl [70-100 145 mg/dL mg/dL] *HI* (08/16/14 9:43 AM) Creatinine Lvl 1.33 mg/dL [0.44-1.03 mg/dL] *HI* (08/16/14 9:43 AM) eGFR [>60] 39 2 *ABN* (08/16/14 9:43 AM) Calcium Lvl 9.3 mg/dL [8.6-10.0 mg/dL] (08/16/14 9:43 AM) Albumin Lvl [3.5-4.8 3.6 gm/dL gm/dL] (08/13/14 1:11 PM) Total Protein 8.4 gm/dL [6.1-7.9 gm/dL] *HI* (08/13/14 1:11 PM) Globulin [1.9-4.3 4.8 gm/dL gm/dL] *HI* (08/13/14 1:11 PM) ALT [14-54 unit/L] 19 unit/L (08/13/14 1:11 PM) AST [15-41 unit/L] 25 unit/L (08/13/14 1:11 PM) Alk Phos [26-104 53 unit/L unit/L] (08/13/14 1:11 PM) Bili Total [0.2-1.2 0.8 mg/dL 1 mg/dL] (08/13/14 1:11 PM) Iron [50-170 mcg/dL] 47 mcg/dL *LOW* (08/14/14 7:54 AM) TIBC [286-569 399 mcg/dL mcg/dL] (08/14/14 7:54 AM) Iron Sat [11-46 %] 12 % (08/14/14 7:54 AM) Transferrin [192-382 268 mg/dL mg/dL] (08/14/14 7:54 AM) BNP [0-99 pg/mL] 122 pg/mL *HI* (08/14/14 7:54 AM) Troponin [<0.06 <0.05 ng/mL ng/mL] (08/14/14 1:22 AM) Lipase Lvl [8-48 59 unit/L unit/L] *HI* (08/13/14 1:11 PM) Vitamin B12 Lvl 307 pg/mL [213-816 pg/mL] (08/14/14 7:54 AM) Blood Glucose, 220 mg/dL Capillary [70-100 *HI* mg/dL] (08/16/14 12:55 PM) Chol [0-200 mg/dL] 225 mg/dL *HI* (08/14/14 7:54 AM) Trig [0-150 mg/dL] 112 mg/dL (08/14/14 7:54 AM) HDL [>40 mg/dL] 44 mg/dL (08/14/14 7:54 AM) LDL [0-100 mg/dL] 159 mg/dL *HI* (08/14/14 7:54 AM) VLDL Cholesterol 22 mg/dL [0-30 mg/dL] (08/14/14 7:54 AM) Cardiac Risk 5.1 [0.0-5.0] *HI* (08/14/14 7:54 AM) Hgb A1c [4.1-5.6 %] 7.0 % *HI* (08/14/14 7:54 AM) eAvg Glucose 154.2 mg/dL (08/14/14 7:54 AM) 1Result Comment: Naproxen, specifically the metabolite O-desmethylnaproxen, may cause spurious elevation in Total Bilirubin levels. 2Result Comment: Multiply eGFR results by 1.21 for race. Urinalysis Most recent to 1 oldest [Reference Range]: UA Color Lt Yellow (08/13/14 8:31 PM) UA Appear Clear (08/13/14 8:31 PM) UA pH [5.0-8.0] 5.0 (08/13/14 8:31 PM) UA Leuk Est Pos 1+ [Negative] *ABN* (08/13/14 8:31 PM) UA Nitrite Negative [Negative] (08/13/14 8:31 PM) UA Protein Negative [Negative] (08/13/14 8:31 PM) UA Glucose Negative [Negative] (08/13/14 8:31 PM) UA Ketones Negative [Negative] (08/13/14 8:31 PM) UA Urobilinogen Negative [<1.0] (08/13/14 8:31 PM) UA Bili [Negative] Negative (08/13/14 8:31 PM) UA Blood [Negative] Negative (08/13/14 8:31 PM) UA Spec Grav 1.033 [1.003-1.030] *HI* (08/13/14 8:31 PM) Type Clean Catch (08/13/14 8:31 PM) UA WBC [0-4] 20-50 *ABN* (08/13/14 8:31 PM) UA RBC [0-2] 2-5 (08/13/14 8:31 PM) Epithelial Cells 2-5 (08/13/14 8:31 PM) UA Bacteria Occasional *ABN* (08/13/14 8:31 PM) Blood Bank Results Most recent to 1 oldest [Reference Range]: ABO/Rh A POS (08/15/14 9:53 AM) Antibody Screen Tube NEG (08/15/14 9:53 AM) Microbiology Reports PROCEDURE: Urine Culture STATUS: Auth (Verified) BODY SITE: SOURCE: Urine COLLECTED DATE/TIME: 08/13/14 8:31 PM PROCEDURE: Respiratory Virus Panel - PCR STATUS: Auth (Verified) BODY SITE: SOURCE: Nasopharyngeal Swab COLLECTED DATE/TIME: 08/13/14 7:45 PM PROCEDURE: Blood Culture STATUS: Order in Progress BODY SITE: SOURCE: Blood COLLECTED DATE/TIME: 08/13/14 7:36 PM PROCEDURE: Blood Culture STATUS: Order in Progress BODY SITE: SOURCE: Blood COLLECTED DATE/TIME: 08/13/14 7:31 PM Immunizations No data available for this section Procedures Procedure Date Related Diagnosis Body Site Cardiac catheterization, left heart Carotid endarterectomy1 1left Social History Social History Type Response Smoking Status Former smoker1 1quit 30 years ago Assessment and Plan No data available for this section
[2016-11-09] MEDS ORDERED: BISACODYL 10 MG SUPPOSITORY RECTALLY PRN (16:15)
[2016-11-09] MEDS ORDERED: MILK OF MAGNESIA 30 ML SUSP PO PRN (16:15)
--- OUTSIDE RECORDS SUMMARY | 2016-11-09 16:15 | XMS REPORT ---
Author Kai Gant [facility] eClinicalWorks Address Unknown Phone Unavailable Care Team Providers Care Tufting Supervisor Name Role Phone Kai Tyler CP Unavailable [...] J44.9 Active Problem Atherosclerotic heart disease of [place] coronary artery without angina pectoris I25.10 Active [...]
--- OUTSIDE RECORDS SUMMARY | 2016-11-09 16:15 | XMS REPORT | Continuity of Care Document ---
Author Author [facility] Organization [facility] Address Unknown Phone Unavailable Support Name Relationship Address Phone MARIA G MALDONADO MD Caregiver [address] [place] [address] Unavailable ERIC SILVA "KEVIN" Caregiver [address] [place] [address] Unavailable RODRIGUEZ RAMIREZ Next Of Kin [address] [place] [address] Insurance Providers Guarantor Effie Ramirez Address [address] [place] [address] Email DENIED/NO TO PT [facility] Policy Number [id number] Subscriber's Name Effie Ramirez Relationship 18 Self Group Number [id number] Payer Medicare Policy Number [id number] Subscriber's Name Effie Ramirez Relationship 18 Self Problems Active Problems Medical Problem Onset Date Status Chronic anemia Unknown Chronic Congestive heart failure Unknown Chronic Coronary artery disease Unknown Chronic Diabetes Unknown Chronic Fall Unknown Acute High cholesterol Unknown Chronic Hypertension Unknown Chronic Lumbar compression fracture Unknown Acute On home O2 Unknown Chronic Medications Current Home Medications Medication Dose Units Route Directions Days Qty Instructions Start Date Aspirin (Baby Aspirin) 81 Mg Tab.chew 81 Mg Oral Daily 06/21/12 Atenolol 50 Mg Tablet 0.5 Tab Oral Twice A Day 45 10/09/15 Cholecalciferol (Vitamin D3) (Vitamin D) 1,000 Unit Capsule 1,000 Mg Oral Four Times Daily 10/09/15 Clopidogrel Bisulfate (Clopidogrel) 75 Mg Tablet 1 Tab Oral Daily 60 10/09/15 Gabapentin 300 Mg Capsule 1 Tab Oral As Needed 90 10/09/15 Hydrocodone/Apap 7.5/325 Mg ([place] 7.5-325 Tablet) 1 Each Tablet 1-2 Tab Oral Every 6 Hours as needed for Pain 10/15/15 Insulin Glargine (Lantus) 100 U/Ml Cartridge 40 U Sub-Q Am Insulin Glargine,Hum.rec.anlog (Lantus) 100 Unit/Ml Inj 45 Unit Sub-Q Every Evening 10/09/15 Insulin Lispro (Humalog) 100 Unit/1 Ml Cartridge 24 Unit Sub-Q Three Times Daily With Meals 10/09/15 Losartan Potassium 50 Mg Tablet 50 Mg Oral Daily 10/09/15 Niacin 500 Mg Capsule.sa 500 Mg Oral Daily 06/21/12 Nitroglycerin (Nitroglycerin 24 Hr Patch 0.2 Mg/Hr) 1 Each Patch.td24 1 Patch Topically Daily 30 ON IN AM OFF AT HS 10/09/15 Polyethylene Glycol 3350 (Miralax) 17 Gm Packet 17 Gm Oral Daily 30 Days 10/10/15 Rosuvastatin Calcium (Crestor) 20 Mg Tablet 20 Mg Oral Bedtime Take 1 tablet, by mouth, one time a day at bedtime. 10/09/15 Sennosides/Docusate Sodium (Senna Plus Tablet) 1 Tab Tablet 2 Tab Oral Twice A Day 30 Days 10/10/15 Vitamin B 1 Sub-Q Monthly 10/09/15 Vitamin E (Dl,Tocopheryl Acet) (Vitamin E) 400 Unit Capsule 400 Unit Oral Four Times Daily 10/09/15 Past Home Medications Medication Directions Ordered Status Aspirin 81 Mg Tab.chew, 81 Mg Oral Daily 06/17/12 Discontinued Social History Social History Problem Response Recorded Date/Time Onset Date Status Chewing Tobacco Status No 06/17/2012 1:19pm Not Applicable Not Applicable Hx Substance Use No 10/15/2015 1:25pm Not Applicable Not Applicable Hx Alcohol Use No 10/15/2015 1:25pm Not Applicable Not Applicable Has the pt used tobacco in the last 12 months No 10/16/2015 9:16am Not Applicable Not Applicable Tobacco Usage none 10/09/2015 5:49pm Not Applicable Not Applicable Hospital Discharge Instructions No hospital discharge instructions. Plan of Care Prescriptions See Medication Section Functional Status No functional status results. Allergies, Adverse Reactions, Alerts Allergen Type Severity Reaction Status Last Updated Penicillin Allergy Unknown RASH Active 10/09/15 Morphine Allergy Unknown LOW BP, 'OUT OF IT' Active 10/09/15 Codeine Allergy Unknown Active 10/09/15 Immunizations Query Response on File Recorded Date/Time Hx Influenza Vaccination Y APR 2015 10/15/15 1:25pm Hx Pneumococcal Vaccination Y DOES NOT KNOW WHEN 10/15/15 1:25pm Hx Influenza Vaccination Y APR 2015 10/15/15 1:25pm Influenza Vaccine Hx apr 2015 10/09/15 8:13pm Vital Signs No known vital signs results. Results Laboratory Results Test Name Result Units Flags Reference Collection Date/Time Result Date/ Time Comments White Blood Count 9.8 T/MM3 4.5-11.0 06/30/2016 10:52am 06/30/2016 11: 03am Red Blood Count 3.28 M/MM3 L 4.00-5.20 06/30/2016 10:52am 06/30/2016 11: 03am Hemoglobin 9.8 GM/DL L 12-16 06/30/2016 10:52am 06/30/2016 11:03am Hematocrit 32.2 % L 36-46 06/30/2016 10:52am 06/30/2016 11:03am Mean Corpuscular Volume 98.2 UM3 80-100 06/30/2016 10:52am 06/30/2016 11:03am Mean Corpuscular Hemoglobin 29.9 UUG 26-34 06/30/2016 10:52am 2015 11:03am Mean Corpuscular Hemoglobin Concent 30.4 GM/DL L 31-37 06/30/2016 10: 52am 06/30/2016 11:03am RDW Standard Deviation 49.6 FL 36.9-50.2 06/30/2016 10:52am 06/30/2016 11:03am Platelet Count 364 T/MM3 130-400 06/30/2016 10:52am 06/30/2016 11:03am Mean Platelet Volume 9.6 UM3 9.4-12.4 06/30/2016 10:52am 06/30/2016 11: 03am Neutrophils (%) (Auto) 71.2 % H 33-66 06/30/2016 10:52am 06/30/2016 11: 03am Lymphocytes (%) (Auto) 20.4 % L 23-45 06/30/2016 10:52am 06/30/2016 11: 03am Monocytes (%) (Auto) 6.6 % 0-9.0 06/30/2016 10:52am 06/30/2016 11:03am Eosinophils (%) (Auto) 1.1 % 0-4 06/30/2016 10:52am 06/30/2016 11:03am Basophils (%) (Auto) 0.5 % 0-2 06/30/2016 10:52am 06/30/2016 11:03am Immature Granulocyte % (Auto) 0.2 % 0.0-0.5 06/30/2016 10:52am 2015 11:03am Absolute Neutrophils (auto) 7.0 T/MM3 1.8-7.7 06/30/2016 10:52am 2015 11:03am Absolute Lymphocytes (auto) 2.0 T/MM3 1-4.8 06/30/2016 10:52am 2015 11:03am Absolute Monocytes (auto) 0.7 T/MM3 0-0.8 06/30/2016 10:52am 2015 11:03am Absolute Eosinophils (auto) 0.1 T/MM3 0-0.5 06/30/2016 10:52am 2015 11:03am Absolute Basophils (auto) 0.1 T/MM3 0-0.2 06/30/2016 10:52am 2015 11:03am Absolute Immature Granulocyte (auto 0.02 T/MM3 0.00-0.03 06/30/2016 10: 52am 06/30/2016 11:03am Neutrophils % (Manual) 78.0 % H 33-66 02/25/2016 10:am 02/25/2016 10: 46am Band Neutrophils % 8.0 % H 0-6 02/25/2016 10:am 02/25/2016 10:46am Lymphocytes % (Manual) 13.0 % L 23-45 02/25/2016 10:am 02/25/2016 10: 46am Monocytes % (Manual) 1.0 % 0-9.0 02/25/2016 10:am 02/25/2016 10:46am Band Neutrophils # 1.3 T/MM3 02/25/2016 10:am 02/25/2016 10:46am Absolute Neutrophils (Manual) 13.0 T/MM3 H 1.8-7.7 02/25/2016 10:28am 10:46am Lymphocytes # (Manual) 2.2 T/MM3 1-4.8 02/25/2016 10:28am 02/25/2016 10 :46am Monocytes # (Manual) 0.2 T/MM3 0-0.8 02/25/2016 10:28am 02/25/2016 10: 46am Red Cell Morphology Comment ABNORMAL 02/25/2016 10:28am 02/25/2016 10:46am Anisocytosis 1+ 02/25/2016 10:28am 02/25/2016 10:46am Poikilocytosis 1+ 02/25/2016 10:28am 02/25/2016 10:46am Procedures No known history of procedures. Encounters Encounter Location Arrival/Admit Date Discharge/Depart Date Attending Provider Discharged [facility] 06/30/16 10:34am 07/11/16 11: 59pm MARIA G MALDONADO MD
--- OUTSIDE RECORDS SUMMARY | 2016-11-09 16:15 | XMS REPORT ---
Author Kai Gant [facility] eClinicalWorks Address Unknown Phone Unavailable Care Team Providers Care Online Publisher Name Role Phone Kai Tyler CP Unavailable [...] J44.9 Active Problem Atherosclerotic heart disease of [place] coronary artery without angina pectoris I25.10 Active [...]
--- OUTSIDE RECORDS SUMMARY | 2016-11-09 16:15 | XMS REPORT | CCD ---
Author Author MARIANELA GOLDSTEIN Organization Unknown Address [address], [place] [id number] Phone 0 Care Team Providers Care Machine Hoop Maker Helper Name Role Phone FELI MARY Attending Physician 0 F.JARROD Nurse Assisstant 0 Vital Signs Unknown or Not Available. Allergies Allergy Code Allergy Type Reaction Status PCN (penicillin) 0 Drug allergy Active ZOCOR 155842 Drug allergy Active CODEINE 2670 Drug allergy Active LIPITOR 914828 Drug allergy Active MORPHINE 7052 Drug allergy Active Procedures Unknown or Not Available. History of Immunizations Immunization Code Date pneumococcal, unspecified formulation 109 07/11/2011 Problems Problem Code Start Date Resolved Date Status DIABETES MELLITUS TYPE 2, UNCONTROLLED 040910317 Active HYPOKALEMIA 99515945 Active Results Unknown or Not Available. Active Medications Medication Code Dose Units Frequency Route Modification Start Date/Time LISINOPRIL-HYDROCHLOROTHIAZIDE 0 20 MG- 12.5 MILLIGRAM DAILY By Mouth 10/04/2011 10:30 Aspirin 81MG Oral Tablet 815155 81 MILLIGRAMS DAILY ORAL 10/04/2011 09:25 Fish Oil 1000MG Oral Capsule, Liquid Filled 710177 6168 MILLIGRAMS DAILY ORAL 10/04/2011 09:25 Medications Administered During Visit Unknown or Not Available. Encounters Unknown or Not Available. Social History Smoking Status Code Start Date End Date Unknown if ever smoked 852326333 Patient Decision Aids Unknown or Not Available. Discharge Instructions [facility] on 11/20/2014. You were discharged from [facility] on 11/20/2014. Should you have any questions prior to discharge, please contact a member of your healthcare team. If you have left the hospital and have any questions, please contact your primary care physician. Chief Complaint and Reason For Visit Chief Complaint Date of Onset INFUSION Function Status Unknown or Not Available. Plan of Care Unknown or Not Available. Referral/Transition of Care Unknown or Not Available.
--- OUTSIDE RECORDS SUMMARY | 2016-11-09 16:15 | XMS REPORT ---
Author Kai Gant [facility] eClinicalWorks Address Unknown Phone Unavailable Care Team Providers Care Gate Mortiser Operator Name Role Phone Kai Tyler CP Unavailable [...] J44.9 Active Problem Atherosclerotic heart disease of [place] coronary artery without angina pectoris I25.10 Active [...] Instructions Start Date End Date Status Dosage Torsemide [facility] [id number] 20MG Orally Once a day TAKE ONE TABLET BY MOUTH ONCE DAILY Results No Known Results Summary Purpose eClinicalWorks Submission
--- OUTSIDE RECORDS SUMMARY | 2016-11-09 16:15 | XMS REPORT ---
Author Kai Gant Organization eClinicalWorks Address Unknown Phone Unavailable Care Team Providers Care Bowl Turner Name Role Phone Kai Tyler CP Unavailable [...] Instructions Start Date End Date Status Dosage Demadex [facility] [address]-01 20 MG Orally Once a day May 02, 2015 1 tablet Results No Known Results Summary Purpose eClinicalWorks Submission
--- OUTSIDE RECORDS SUMMARY | 2016-11-09 16:15 | XMS REPORT | CCD ---
Author Author CONRAD RAMIRES Organization Unknown Address [address], [place] [id number] Phone 0 Care Team Providers Care Ironing Worker Name Role Phone KEVIN SILVA Attending Physician [phone] Vital Signs Unknown or Not Available. Allergies Allergy Code Allergy Type Reaction Status PCN (penicillin) 0 Drug allergy Active ZOCOR 850424 Drug allergy Active CODEINE 2670 Drug allergy Active LIPITOR 257345 Drug allergy Active MORPHINE 7052 Drug allergy Active Procedures Procedure Code Procedure Type Date CHEST [address] 08/25/2016 History of Immunizations Immunization Code Date pneumococcal, unspecified formulation 109 07/11/2011 Problems Problem Code Start Date Resolved Date Status DIABETES MELLITUS TYPE 2, UNCONTROLLED 800347750 Active HYPOKALEMIA 46493621 Active Results CARDIAC PANEL - Collect Date/Time: 08/25/2016 15:35 Test Name Code Test Result Test Units Test Ref Range CKMB 1.7 ng/mL L=0.0 H=3.6 CPK 68 U/L L=26 H=308 CKMB% 2.5 % L=0.0 H=4.0 TROPONIN I 0.04 ng/ mL L=0.00 H=0.05 COMP METABOLIC - Collect Date/Time: 08/25/2016 15:35 Test Name Code Test Result Test Units Test Ref Range GLUCOSE 210 mg/dL L=70 H=110 BUN 48 mg/dL L=7 H=18 CREATININE 1.85 mg/ dL L=0.60 H=1.30 AGE 71 YEARS GFR 26.8 L=60.0 H=120 SODIUM 140 mmol/L L=136 H=145 POTASSIUM 4.3 mmol/ L L=3.5 H=5.1 CHLORIDE 102 mmol/L L=98 H=107 CO2 30 mmol/L L=21 H=32 CALCIUM 9.6 mg/dL L=8.5 H=10.1 AST 10 U/L L=15 H=37 ALT 17 U/L L=12 H=78 ALKALINE PHOS 97 U/ L L=50 H=136 TOTAL PROTEIN 8.7 g/ dL L=6.4 H=8.2 ALBUMIN 3.3 g/dL L=3.4 H=5.0 TOTAL BILI 0.70 mg/ dL L=0.00 H=1.00 PRO B-TYPE NATRIURETIC PEPTIDE - Collect Date/Time: 08/25/2016 15:35 Test Name Code Test Result Test Units Test Ref Range PBNP 1496 pg/mL L=0 H=125 CBC W/ DIFF - Collect Date/Time: 08/25/2016 15:35 Test Name Code Test Result Test Units Test Ref Range WBC 14.2 x10^3 L=4.8 H=10.8 RBC 3.81 x10^6 L=4.20 H=5.40 HEMOGLOBIN 11.4 g/ dL L=12.0 H=16.0 HEMATOCRIT 34.5 % L=37.0 H=47.0 MCV 90 fL L=80 H=100 MCH 29.8 pg L=27.0 H=33.0 MCHC 33.0 g/dL L=33.0 H=37.0 RDW 15.2 % L=11.5 H=14.5 PLATELETS 437 x10^3 L=150 H=450 MPV 7.4 fL L=7.8 H=11.0 NEUTROPHILS 69.7 % L=40.0 H=80.0 LYMPHOCYTES 22.5 % L=20.0 H=45.0 MONOCYTES 6.3 % L=0.0 H=10.0 EOSINOPHILS 1.1 % L=0.0 H=5.0 BASOPHILS 0.4 % L=0.0 H=2.0 REFLEX MAN DIFF NO N /A Active Medications Medication Code Dose Units Frequency Route Modification Start Date/Time Lantus 100U/1ML Subcutaneous Solution 799366 45 EACH AT BEDTIME SUBCUTANEOUS 05/16/2015 08:24 Prescription Detail 45 EACH SUBCUTANEOUS AT BEDTIME Lasix 20MG Oral Tablet 20 MILLIGRAMS every other day ORAL 05/16/2015 08:24 Prescription Detail 20 MILLIGRAMS ORAL every other day Losartan Potassium 50MG Oral Tablet 579039 50 MILLIGRAMS DAILY ORAL 05/16/2015 08:24 Prescription Detail 50 MILLIGRAMS ORAL DAILY Vitamin B12 1000MCG/1ML Intramuscular Solution 418551 1 EACH EVERY MONTH INTRAMUSCULAR 05/16/2015 08: 24 Prescription Detail 1 EACH INTRAMUSCULAR EVERY MONTH Atenolol 50MG Oral Tablet 140160 25 MILLIGRAMS TWICE A DAY ORAL 04/02/2015 10:15 Prescription Detail 25 MILLIGRAMS ORAL TWICE A DAY Clopidogrel 75MG Oral Tablet 434227 75 MILLIGRAMS AT BEDTIME ORAL 04/02/2015 10:15 Prescription Detail 75 MILLIGRAMS ORAL AT BEDTIME Crestor 20MG Oral Tablet 298708 20 MILLIGRAMS AT BEDTIME ORAL 04/02/2015 10:15 Prescription Detail 20 MILLIGRAMS ORAL AT BEDTIME Niacin 500MG Oral Capsule [id number] 500 MILLIGRAMS DAILY ORAL 04/02/2015 10:15 Prescription Detail 500 MILLIGRAMS ORAL DAILY Nitro-Dur 0.2MG/1HR Transdermal Patch, Extended Release 347466 1 EACH DAILY TRANSDERMAL 04/02/2015 10:15 Prescription Detail 1 EACH TRANSDERMAL DAILY Vitamin D3 1000IU Oral Tablet 56308735310 1000 INTERNATIONAL UNITS FOUR TIMES A DAY ORAL 04/02/2015 10:15 Prescription Detail 1000 INTERNATIONAL UNITS ORAL FOUR TIMES A DAY Vitamin E 400IU Oral Tablet 247725 400 INTERNATIONAL UNITS FOUR TIMES A DAY ORAL 04/02/2015 10:15 Prescription Detail 400 INTERNATIONAL UNITS ORAL FOUR TIMES A DAY Aspirin 81MG Oral Tablet 884866 81 MILLIGRAMS DAILY ORAL 10/04/2011 09:25 Prescription Detail 81 MILLIGRAMS ORAL DAILY Medications Administered During Visit Unknown or Not Available. Encounters Unknown or Not Available. Social History Smoking Status Code Start Date End Date Unknown if ever smoked 507022313 Patient Decision Aids Unknown or Not Available. Discharge Instructions You were admitted to [facility] on 08/25/2016 15:20 You had the following tests done: CARDIAC PANEL CBC W/ DIFF COMP METABOLIC PRO B-TYPE NATRIURETIC PEPTIDE You were discharged from [facility] on 08/25/2016 15:20 Should you have any questions prior to discharge, please contact a member of your healthcare team. If you have left the hospital and have any questions, please contact your primary care physician. Chief Complaint and Reason For Visit Chief Complaint Date of Onset X RAY/LAB 08/27/2016 Function Status Unknown or Not Available. Plan of Care Unknown or Not Available. Referral/Transition of Care Unknown or Not Available.
--- OUTSIDE RECORDS SUMMARY | 2016-11-09 16:15 | XMS REPORT ---
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
--- OUTSIDE RECORDS SUMMARY | 2016-11-09 16:15 | XMS REPORT | Continuity of Care Document ---
Author Author [facility] Organization [facility] Address Unknown Phone Unavailable Support Name Relationship Address Phone JACQUELYN COOK MD Caregiver [address] [place] [address] Unavailable GUI HAGAN DO Caregiver [address] [place] [address] Unavailable RODRIGUEZ RAMIREZ Next Of Kin [address] [place] [address] Insurance Providers Guarantor Efife Ramirez Address [address] [facility] [address] Email DENIED/NO TO PT [facility] Policy Number [id number] Subscriber's Name Effie Ramirez Relationship 18 Self Group Number [id number] Payer Medicare Policy Number [id number] Subscriber's Name Effie Ramirez Relationship 18 Self Advance Directives Directive Response Recorded Date/Time Resuscitation Documents on File No 10/16/15 8:52am DPOA for Healthcare Only No 10/16/15 8:52am Problems Active Problems Medical Problem Onset Date [...] As Needed 90 10/09/15 Hydrocodone/Apap 7.5/325 Mg ([place] 7.5-325 Tablet) 1 Each Tablet 1-2 Tab [...] none 10/09/2015 5:49pm Not Applicable Not Applicable Query Response Start Date Stop Date Smoking Status Former smoker Hospital Discharge Instructions Current inpatient/outpatient. Discharge instructions are currently unavailable. Plan of Care Current inpatient/outpatient. The plan of care is currently unavailable Functional Status Query Response Date Recorded Ability to complete ADL's impeded by No change October 16, 2015 8:52am Allergies, Adverse Reactions, Alerts Allergen Type Severity [...] Hx apr 2015 10/09/15 8:13pm Vital Signs Acute Vital Signs Vital Response Date/Time Temperature (Fahrenheit) 98.3 deg F (96.8 - 99.1) 10/16/2015 11:38am Temperature (Calculated Celsius) 36.43108 degrees C (36.0 - 37.3) 10/16/2015 11:38am Temperature Source Temporal 10/16/2015 11:38am Pulse Rate (adult) 68 bpm (60 - 100) 10/16/2015 12:55pm Respiratory Rate 18 breaths/min (10 - 20) 10/16/2015 12:55pm O2 Sat by Pulse Oximetry 94 % (90 - 100) 10/16/2015 12:55pm Oxygen Delivery Method Nasal Cannula 10/16/2015 12:55pm Oxygen Flow Rate 2.00 L/min 10/16/2015 12:55pm Blood Pressure 157/70 mm Hg 10/16/2015 12:55pm Blood Pressure Source Automatic Cuff 10/16/2015 12:55pm Height (Feet) 5 feet 10/16/2015 8:50am Height (Inches) 2.00 inches 10/16/2015 8:50am Weight (Kilograms) 78.500 kg 10/16/2015 8:50am Body Mass Index (BMI) 31.7 10/16/2015 8:50am Results Laboratory Results Test Name Result Units Flags Reference Collection Date/Time Result Date/ Time Comments White Blood Count 12.0 T/MM3 H 4.5-11.0 12/31/2015 10:40am 12/31/2015 10 :56am Red Blood Count 3.79 M/MM3 L 4.00-5.20 12/31/2015 10:40am 12/31/2015 10: 56am Hemoglobin 10.9 GM/DL L 12-16 12/31/2015 10:40am 12/31/2015 10:56am Hematocrit 36.4 % 36-46 12/31/2015 10:40am 12/31/2015 10:56am Mean Corpuscular Volume 96.0 UM3 80-100 12/31/2015 10:40am 12/31/2015 10:56am Mean Corpuscular Hemoglobin 28.8 UUG 26-34 12/31/2015 10:40am 2015 10:56am Mean Corpuscular Hemoglobin Concent 29.9 GM/DL L 31-37 12/31/2015 10: 40am 12/31/2015 10:56am RDW Standard Deviation 48.0 FL 36.9-50.2 12/31/2015 10:40am 12/31/2015 10:56am Platelet Count 464 T/MM3 H 130-400 12/31/2015 10:40am 12/31/2015 10: 56am Mean Platelet Volume 9.4 UM3 9.4-12.4 12/31/2015 10:40am 12/31/2015 10: 56am Neutrophils (%) (Auto) 61.4 % 33-66 12/31/2015 10:40am 12/31/2015 10: 56am Lymphocytes (%) (Auto) 29.0 % 23-45 12/31/2015 10:40am 12/31/2015 10: 56am Monocytes (%) (Auto) 7.5 % 0-9.0 12/31/2015 10:40am 12/31/2015 10:56am Eosinophils (%) (Auto) 1.2 % 0-4 12/31/2015 10:40am 12/31/2015 10:56am Basophils (%) (Auto) 0.6 % 0-2 12/31/2015 10:40am 12/31/2015 10:56am Immature Granulocyte % (Auto) 0.3 % 0.0-0.5 12/31/2015 10:40am 2015 10:56am Absolute Neutrophils (auto) 7.3 T/MM3 1.8-7.7 12/31/2015 10:40am 2015 10:56am Absolute Lymphocytes (auto) 3.5 T/MM3 1-4.8 12/31/2015 10:40am 2015 10:56am Absolute Monocytes (auto) 0.9 T/MM3 H 0-0.8 12/31/2015 10:40am 2015 10:56am Absolute Eosinophils (auto) 0.1 T/MM3 0-0.5 12/31/2015 10:40am 2015 10:56am Absolute Basophils (auto) 0.1 T/MM3 0-0.2 12/31/2015 10:40am 2015 10:56am Absolute Immature Granulocyte (auto 0.03 T/MM3 0.00-0.03 12/31/2015 10: 40am 12/31/2015 10:56am Neutrophils % (Manual) 62.0 % 33-66 11/05/2015 11:11am 11/05/2015 11: 40am Band Neutrophils % 2.0 % 0-6 11/05/2015 11:11/05/2015 11:40am Lymphocytes % (Manual) 32.0 % 23-45 11/05/2015 11:11am 11/05/2015 11: 40am Monocytes % (Manual) 2.0 % 0-9.0 11/05/2015 11:11/05/2015 11:40am Eosinophils % (Manual) 2.0 % 0-4 11/05/2015 11:m 11/05/2015 11:40am Band Neutrophils # 0.3 T/MM3 11/05/2015 11:m 11/05/2015 11:40am Absolute Neutrophils (Manual) 10.1 T/MM3 H 1.8-7.7 11/05/2015 11:11am 11:40am Lymphocytes # (Manual) 5.2 T/MM3 H 1-4.8 11/05/2015 11:11/05/2015 11:40am Monocytes # (Manual) 0.3 T/MM3 0-0.8 11/05/2015 11:11am 11/05/2015 11: 40am Eosinophils # (Manual) 0.3 T/MM3 0-0.5 11/05/2015 11:11a11/05/2015 11 :40am Red Cell Morphology Comment ABNORMAL 11/05/2015 11:11am 11/05/2015 11:40am Anisocytosis 1+ 11/05/2015 11:11am 11/05/2015 11:40am Poikilocytosis 1+ 11/05/2015 11:11am 11/05/2015 11:40am Prothromb Time International Ratio 1.07 0.81-1.09 10/16/2015 9:14am 10/16/2015 9:32am THERAPUTIC RANGE=2.00-3.00 FOR ANTI-THROMBOSIS THERAPUTIC RANGE=2.50-3.50 FOR IMPLANTED VALVE Name: EFFIE RAMIREZ Unit #: [id number] : 1945 Sex: F Admit Date: Loc / Svc: CATH Discharge Date: DIAGNOSTIC IMAGING REPORT (Signed) Report #: [id number] [facility] ROSEANNA Irizarry Indication: ITS.REASON PROCEDURE: VERTEBRAL AUGMENTATION, LUMBAR: Encounter: Initial Comparison: MRI lumbar spine 09/29/2015 Procedure: The procedure of L1 vertebroplasty was discussed with the patient including the risks and benefits and she understands and agrees to proceed. The skin was prepped and draped in a sterile fashion. A suitable skin entry site was selected utilizing fluoroscopy and 1% lidocaine was utilized for local anesthesia. A right pedicle approach was utilized at L1 and subsequently, an 11-gauge vertebroplasty trocar was advanced and subsequently the segment was augmented. Subsequently, approximately 4 cc of polymethylmethacrylate was placed into the segment with good dispersion of the cement within the segment and no significant extravasation identified. The patient tolerated the procedure well. Approximately 30 minutes of conscious sedation was utilized by the department nurse. Impression: Successful vertebroplasty/augmentation of L1. . Procedures Procedure Status Date Provider(s) PERQ LUMBOSACRAL INJECTION Completed 10/16/15 GUI HAGAN DO ROUTINE VENIPUNCTURE Completed 10/16/15 CT LUMBAR SPINE W/O DYE Completed 10/16/15 PROTHROMBIN TIME Completed 10/16/15747664"INJECTION, MIDAZOLAM HYDROCHLORIDE, PER 1 MG" Completed 10/16/15543245"INJECTION, MIDAZOLAM HYDROCHLORIDE, PER 1 MG" Completed 10/16/15330424"INJECTION, FENTANYL CITRATE, 0.1 MG" Completed 10/16/15 072197"INFUSION, NORMAL SALINE SOLUTION , 250 CC" Completed 10/16/15 Encounters Encounter Location Arrival/Admit Date Discharge/Depart Date Attending Provider Discharged [facility] 12/31/15 10:35am 01/09/16 7:12pm MARIA G MALDONADO MD Registered [facility] 10/16/15 8:19am GUI HAGAN DO
--- OUTSIDE RECORDS SUMMARY | 2016-11-09 16:15 | XMS REPORT ---
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 378277633 Problem Essential (primary) hypertension I10 Active 38272658 Problem Nonrheumatic aortic (valve) stenosis I35.0 Active 3012644 Assessment Atherosclerotic heart disease of [place] coronary artery without angina pectoris I25.10 Jul, Active 392589837063244 Problem Anemia D64.9 Active 604100625 Problem Old myocardial infarction I25.2 Active 0692086 Problem Chronic obstructive pulmonary disease, unspecified J44.9 Active 33988670 Problem Type 2 diabetes mellitus without complications E11.9 Active 083263338 Problem Atherosclerotic heart disease of [place] coronary artery without angina pectoris I25.10 Active 893338743463711 Problem 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 Active 147669691459213 ALLERGIES Substance Reaction Event Type Date Status Zocor Unknown Drug Allergy Jul, Active lipitor Unknown Non Drug Allergy Jul, Active codeine nausea Non Drug Allergy Jul, Active morphine ? seizures Non Drug Allergy Jul, Active pencillan nausea Non Drug Allergy Jul, Active SOCIAL HISTORY No smoking Hx information available PLAN OF CARE VITAL SIGNS Height 62 in 2016-07-15 Weight 164 lbs 2016-07-15 BMI 29.99 kg/m2 2016-07-15 Oximetry 90% % 2016-07-15 Heart Rate 69 /min 2016-07-15 Blood pressure systolic 184 mm Hg 2016-07-15 Blood pressure diastolic 78 mm Hg 2016-07-15 MEDICATIONS Medication Instructions Dosage Frequency Start Date End Date Duration Status Torsemide 20MG Orally Once every other day TAKE ONE TABLET BY MOUTH ONCE DAILY Active Gabapentin 300 MG Orally prn-tid 1 capsule Active Nitrostat 0.4 MG Sublingual every 0 hrs 1 tablet under the tongue and allow to dissolve as needed Active Atenolol 50 MG Orally bid 1/2 tablet 12h Active Nitro-Dur 0.2 MG/HR Transdermal Once a day 1 patch to skin remove after 12 hours 24h Active Vitamin D 1000 UNIT Orally Once a day 1 capsule 24h Active Albuterol Sulfate (2.5 MG/3ML) 0.083% Inhalation Three times a day 3 ml 8h Active Lantus 100 UNIT/ML Active Oxygen 2 l nc as directed Active Crestor 20 MG Orally Once a day 1 tablet 24h Active Demadex 20 MG Orally Once a day 1 tablet 24h Apr, 30 days Active Aspirin 81 MG Orally Once a day 1 tablet 24h Active Stool Softener 100 MG Orally Once a day 1 tablet as needed 24h Active Niacin 500 MG Orally Once a day 1 tablet 24h Active Plavix 75MG Orally Once a day 1 tablet 24h Active Losartan Potassium 100 MG Orally qd 1 tab 24h Active Vitamin E 400 UNIT Orally Once a day 1 capsule 24h Active Iron 325 (65 Fe) MG Orally bid 1 tablet 12h Active Cyanocobalamin 1000 MCG/ML 1 ml Active Humalog 100 UNIT/ML as directed Active RESULTS No Results PROCEDURES Procedure Date Ordered Related Diagnosis Body Site Office Visit, Est Pt., Level 3 Jul 15, 2016 IMMUNIZATIONS No Known Immunizations
--- OUTSIDE RECORDS SUMMARY | 2016-11-09 16:15 | XMS REPORT | Referral Summary ---
Author Author [facility] Organization [facility] Address Unknown Phone Unavailable Care Team Providers Care Hull Outfit Supervisor Name Role Phone PROVIDER, NOTINSYSTEM Primary Care Physician Unavailable Encounter VC GALARZA [id number] Date(s): 12/26/14 - 12/26/14 [facility] [address] [place] [address] ON Final: FOLLOW-UP EXAMINATION FOLLOWING OTHER SURGERY Final: CONSTIPATION, UNSPECIFIED Final: NAUSEA ALONE Discharge Disposition: 01-Home or Self Care Attending Physician: Anthony Greco MD Vital Signs No data available for this section Problem List Condition Effective Dates Status Health Status Informant Acute Active pain(Confirmed) At risk for unstable Active blood glucose level(Confirmed)1 Bowel Active dysfunction(Confirme d)2 Congestive heart Active patient failure(Confirmed) Constipation(Confirm Active patient ed) Coronary artery Active patient disease(Confirmed) Hypertension(Confirm Active patient ed) Impaired gas Active exchange(Confirmed)3 Impaired skin Active integrity(Confirmed) 4 Myocardial Active patient infarction(Confirmed ) Tobacco Active patient user(Confirmed) 1Problem added automatically by system based on initiation of At Risk for Unstable Blood Glucose Plan of Care 2Problem added automatically by system based on initiation of Bowel Dysfunction Plan of Care 3Problem added automatically by system based on initiation of Impaired Gas Exchange Plan of Care 4Problem added automatically by system based on initiation of Impaired Skin Integrity Plan of Care Allergies, Adverse Reactions, Alerts [...] Date: 08/16/14 Status: Ordered Cranberry oral tablet 2-4 TABS DAILY, Oral, Daily, 84MG EACH, 0 Refill(s) Start Date: 08/13/14 Status: Ordered Crestor 20 mg oral tablet 1 tabs, Oral, Daily, HS, # 30 tabs, 0 Refill(s) Start Date: 10/11/14 Status: Ordered Fish Oil 2 caps, Oral, Daily, 0 Refill(s) Start Date: 08/13/14 Status: Ordered gabapentin 300 mg, Oral, Daily, Other (See Comment), NEUROPATHY, 0 Refill(s) Start Date: 10/11/14 Status: Ordered HumaLOG 24 units, SubCutaneous, TIDAC, 0 Refill(s) Start Date: 08/13/14 Status: Ordered HYDROcodone-acetaminophen 5 mg-325 mg oral tablet 1-2 tabs, Oral, q4hr, Pain Moderate (4-6), 0 Refill(s) Start Date: 10/17/14 Status: Ordered Lantus 40 units, SubCutaneous, BID, 0 Refill(s) Start Date: 08/13/14 Status: Ordered NexIUM 22.3 mg, Oral, Daily, 0 Refill(s) Start Date: 10/11/14 Status: Ordered niacin 500 mg, Oral, Daily, 0 Refill(s) Start Date: 08/13/14 Status: Ordered nitroglycerin 0.2 mg/hr transdermal film, extended release 1 patches, TransDermal, Daily, ON IN AM AND OFF IN PM, 0 Refill(s) Start Date: 08/13/14 Status: Ordered [...] Refill(s) Start Date: 08/16/14 Status: Ordered Vitamin B12 SHOT EVERY WEDNESDAY, 0 Refill(s) Start Date: 10/11/14 Status: Ordered Vitamin D3 2 caps, Oral, Daily, 0 Refill(s) Start Date: 08/13/14 Status: Ordered vitamin E 2 caps, Oral, Daily, 400 INTER UNITS - 2 TABS, 0 Refill(s) Start Date: 08/13/14 Status: Ordered Results No data available for this section Immunizations No data available for this section Procedures Procedure Date Related Diagnosis Body Site Cholecystectomy Robotic Single Site1 10/15/14 Colonoscopy2 10/15/14 Esophagogastroduodenoscopy - SN3 10/15/14 Cardiac catheterization, left heart Carotid endarterectomy4 Colonoscopy LEFT SIDE OF HEAD SURGERY - VEIN CLOGGED PYLONIDAL CYST REMOVAL TEETH EXTRACTION Tubal ligation 1auto-populated from documented surgical case 2auto-populated from documented surgical case 3auto-populated from documented surgical case 4left Social History Social History Type Response Smoking Status Former smoker1 1quit 30 years ago Assessment and Plan No data available for this section
[2016-11-09] MEDS ORDERED: POLYETHYL.GLYCOL 3350 PACKET 17gm PO PRN (16:45)
--- NOTE | 2016-11-09 16:46 | HPPDOC ---
ODALIS TREVIÑO SHAPER SETTER 11/09/16 1624: HPI - Adult Date DATE: 11/09/16 TIME: 16:11 General Chief Complaint: FALL History of Present Illness Mana Ramirez is a 71-year-old woman who lives at home. She uses chronic oxygen at 3 L continuously. This morning while talking on the phone, she tripped over her oxygen tubing and landed on her left side. She denies hitting her head or losing consciousness. She was unable to stand up after this fall, and activated 911. She was taken to [facility] emergency department where she is diagnosed with a left proximal humerus fracture. She was also diagnosed with pubic rami fractures. Chest x-ray was obtained because of the bruise under her left breast. This showed pulmonary hyper inflation with linear atelectasis and/or scarring within the right lung and elevation of the right hemidiaphragm. In addition to her osseous abnormalities, she was found to have an acute kidney injury with creatinine of 2.3, baseline is 1.8. Potassium was elevated at 6.0. Glucose was markedly elevated at 556, BUN was 69, sodium 135, CO2 25. CBC showed leukocytosis with a white count of 18.2 and left shift with 10% bands. Hemoglobin is 11.7. Patient has a history of chronic anemia and receives "blood boosting shots" by Dr. Lennon (last one was about 1 week ago). She did receive Humalog 20 units for her hyperglycemia. EKG showed new changes in leads V5 and V6 with inverted T waves. Urinalysis showed glycosuria, a small number of leukocytes and 5-10 WBC, trace bacteria. She was given 1 g of Rocephin for UTI. She was subsequently transferred to [facility] where cardiology is available if needed. I saw the patient on arrival. She was complaining of significant pain. She received fentanyl 50 g en route. Her left arm was in a sling. She complained of a dry mouth, and states she hasn't had anything to eat or drink since last night. She reports a recent "flulike" illness over the weekend. She describes this as an upset stomach and body aches, but no fevers or chills or respiratory symptoms. She denies any chest pain. No nausea, vomiting or diarrhea. She has history of constipation. She denies any dysuria. She denies feeling weak or dizzy, she states she simply tripped over her oxygen tubing, and feels embarrassed about this. Dr. Sweeney will be consulted for ortho care. Past Medical History Past Medical History Chronic Anemia- Decreased bone marrow production Coronary artery disease. Congestive heart failure. CKD stage IV COPD Diabetes type 2 hypertension Elevated cholesterol Oxygen dependent - 3L Surgical History Patient's Surgical History: Right carotid endarterectomy-09/23/15, Dr. Staples Left carotid [id number]-7-6 years ago Coronary stent-2014(Dr. Tyler) Tubal ligation Cholecystectomy-01/2015 Colonoscopy-06/2012 (Negative) Tailbone cyst removed in the Current Medications Home Meds Active Scripts Polyethylene Glycol 3350 (Miralax) 17 Gm Packet, 17 GM PO DAILY for 30 Days Prov:OSMANI OVALLE APRN 10/10/15 Sennosides/Docusate Sodium (Senna Plus Tablet) 1 Tab Tablet, 2 TAB PO BID for 30 Days, TAB Prov:OSMANI OVALLE APRN 10/10/15 Reported Medications Hydrocodone/Apap (Melrose 7.5-325 Tablet) 1 Each Tablet, 1-2 TAB PO Q6H Y for PAIN , TAB 10/15/15 Insulin Glargine,Hum.rec.anlog (Lantus) 100 Unit/Ml Inj, 45 UNIT SQ PM, VIAL 10/09/15 Cholecalciferol (Vitamin D3) (Vitamin D) 1,000 Unit Capsule, 1000 MG PO QID 10/09/15 Vitamin E (Dl,Tocopheryl Acet) (Vitamin E) 400 Unit Capsule, 400 UNIT PO QID, CAP 10/09/15 Nitroglycerin (Nitroglycerin 24 HR Patch 0.2 MG/HR) 1 Each Patch.td24, 1 PATCH TOP DAILY, #30 ON IN AM OFF AT HS 10/09/15 Gabapentin (Gabapentin) 300 Mg Capsule, 1 TAB PO PRN, #90 10/09/15 Atenolol (Atenolol) 50 Mg Tablet, 0.5 TAB PO BID, #45 10/09/15 [Vitamin B] No Conflict Check, 1 SQ MONTHLY 10/09/15 Rosuvastatin Calcium (Crestor) 20 Mg Tablet, 20 MG PO HS, TAB Take 1 tablet, by mouth, one time a day at bedtime. 10/09/15 Clopidogrel Bisulfate (Clopidogrel) 75 Mg Tablet, 1 TAB PO DAILY, #60 10/09/15 Losartan Potassium (Losartan Potassium) 50 Mg Tablet, 50 MG PO DAILY, TAB 10/09/15 Insulin Lispro (Humalog) 100 Unit/1 Ml Cartridge, 24 UNIT SQ TIDWM, VIAL 10/09/15 Insulin Glargine (Lantus) 100 U/Ml Cartridge, 40 U SQ AM 06/21/12 Niacin (Niacin) 500 Mg Capsule.sa, 500 MG PO DAILY 06/21/12 Aspirin (Baby Aspirin) 81 Mg Tab.chew, 81 MG PO DAILY 06/21/12 Allergies: Coded Allergies: Penicillins (Verified Allergy, Unknown, RASH, 10/09/15) codeine (Verified Allergy, Unknown, 10/09/15) morphine (Verified Allergy, Unknown, LOW BP, 'OUT OF IT', 10/09/15) Family History Family History: Mother- Omentum Cancer Father- acute leukemia Sister- cancer Brother- cell cancer Also positive for heart problems. Social History Smoking Status: Former smoker (quit 30 years ago) Alcohol Intake: none Marital Status: Sexuality: male partner Current Occupational Status: retired Social History Comments PCP - Royce Lennon Review of Systems Constitutional: DENIES: appetite decrease, chills, dizziness, fever, weakness Eyes Vision: DENIES: vision changes ENMT Mouth/Throat: REPORTS: dry mouth, DENIES: sore throat Cardiovascular DENIES: chest pain Vascular: DENIES: pedal edema Pulmonary Respiratory: dyspnea (chronic - on oxygen), DENIES: cough GI Upper Abdomen: DENIES: nausea, vomiting Lower Abdomen: constipation, DENIES: diarrhea General: other (Guardado inserted in [place]), DENIES: dysuria, frequency Musculoskeletal General: see HPI Integumentary Skin: DENIES: rash Neurological General: DENIES: headache, memory disturbances, seizures, syncope Psychiatric Psychiatric: DENIES: depression Hematologic/Lymphatic anemia All Other Systems All Other Systems: Reviewed (remainder of 10-point ROS Neg.) Physical Exam General General Nourishment: well nourished, well developed, obese Height (Feet): 5 Height (Inches): 2.00 Eyes Brief: FOUND: PERRL, NOT FOUND: scleral icterus ENMT Brief: NOT FOUND: mucosa moist (very dry MM and lips), pharnyx erythema Neck Brief: NOT FOUND: adenopathy, nuchal rigidity Respiratory Auscultation: FOUND: normal, NOT FOUND: rales, rhonchi, wheezes Cardiovascular Auscultation: FOUND: S1, S2, regular Peripheral Pulses: 2+: Dorasalis Pedis (L), Dorsalis Pedis (R), Posterior Tibial (L), Posterior Tibial (R), Radial (L), Radial (R) Edema: 0: Anasarca, Arm (L), Arm (R), Face, Leg (L), Leg (R) Abdomen Inspection: NOT FOUND: distention Palpation: FOUND: soft, NOT FOUND: involuntary guarding, rebound, tender, voluntary guarding Auscultation: FOUND: hypoactive (brief) Comments Guardado with clear yellow urine Lymphatic (brief) Lymphatic Brief: NOT FOUND: adenopathy Musculoskeletal (brief) Musculoskeletal Brief: FOUND: tenderness (left shoulder - placed in sling) Comments no left leg ext rotation or shortening; +active ROM; able to bear weight on her feet on the bed while the nurses boosted her up Integumentary (brief) Integumentary Brief: FOUND: dry, warm, NOT FOUND: pink (pallor) Integumentary General: FOUND: dry, warm Color: FOUND: pink Neurologic (brief) Neurological Brief: FOUND: cranial 2-12 intact (grossly), motor Neurologic GCS Eye Opening: (4)Spontaneous GCS Verbal: (5)Oriented GCS Motor: (6)Obeys Commands RN Documented GCS Total: 15 Psychiatric (brief) FOUND: alert, attentive, normal affect, oriented Assessment & Plan Problems: (1) Hyperkalemia Status: Acute Assessment & Plan: 6.[address] [facility] (2) CARRIE (acute kidney injury) Assessment & Plan: Baseline 1.8; elevated at 2.3 on admit. (3) Left humeral fracture Status: Acute Qualifiers: Encounter type: initial encounter Assessment & Plan: Comminuted fracture of the humeral head and neck (4) Pubic ramus fracture Status: Acute Qualifiers: Encounter type: initial encounter Assessment & Plan: Minimally displaced fractures through the left superior and inferior pubic rami (5) Fall Status: Acute Qualifiers: Encounter type: initial encounter Qualified Codes: W19.XXXA - Unspecified fall, initial encounter Assessment & Plan: Tripped over O2 tubing on 11/09/16 (6) COPD (chronic obstructive pulmonary disease) Status: Chronic Qualifiers: COPD type: emphysema Emphysema type: unspecified Qualified Codes: J43.9 - Emphysema, unspecified (7) Coronary artery disease Status: Chronic Qualifiers: Coronary Disease-Associated Artery/Lesion type: [place] artery [place] vs. transplanted heart: [place] heart Associated angina: without angina Qualified Codes: I25.10 - Atherosclerotic heart disease of [place] coronary artery without angina pectoris (8) Congestive heart failure Status: Chronic Qualifiers: Congestive heart failure type: unspecified congestive heart failure type Congestive heart failure chronicity: chronic Qualified Codes: I50.9 - Heart failure, unspecified (9) Diabetes Status: Chronic (10) On home O2 Status: Chronic (11) Chronic anemia Status: Chronic Assessment & Plan: receives "blood boosting" shots q3 weeks per Dr. Lennon - last one received 1 week prior to admit. (12) CKD (chronic kidney disease), stage IV Status: Chronic (13) High cholesterol Status: Chronic (14) Hypertension Status: Chronic Qualifiers: Hypertension type: essential hypertension Qualified Codes: I10 - Essential (primary) hypertension Plan/Intensity of Service Admit, observation status, under Dr. Monroy. Diagnoses: Acute kidney injury, abnormal EKG, possible UTI, and orthopedic injuries status post fall. IV fluids: Normal saline at 100 mL for Acute kidney injury and hyperkalemia. Monitor for fluid overload, history of CHF. Repeat BMP to reassess creatinine and hyperkalemia. Repeat CBC to follow-up on leukocytosis and anemia. We'll trend troponins and monitor on telemetry. Repeat EKG tomorrow morning. UTI: Repeat UA and sent for culture. Guardado catheter was inserted at [facility], hopefully we can discontinue this tomorrow. Rocephin was initiated at [facility] , will continue this here. Consulted Dr. Sweeney for orthopedic management. Consult PT and OT for evaluation tomorrow morning. May need SNF or IRU given pelvic and humerus fx. Hyperglycemia, Type 2 diabetes: Will monitor blood sugars and resume home medications. For pain control: Melrose and IV Dilaudid. Patient has allergies to codeine and morphine. Code status: DNR. Orders discussed with Dr. Monroy. DVT Prophylaxis: SCD'S Code Status Hospital Course Summary Disclaimer The hospital course summary below is not to be considered part of the above Progress Note. Hospital Course Summary 11/09/16 Admit, observation status, under Dr. Monroy. Diagnoses: Acute kidney injury, abnormal EKG, possible UTI, and orthopedic injuries status post fall. IV fluids: Normal saline at 100 mL for Acute kidney injury and hyperkalemia. Monitor for fluid overload, history of CHF. Repeat BMP to reassess creatinine and hyperkalemia. Repeat CBC to follow-up on leukocytosis and anemia. We'll trend troponins and monitor on telemetry. Repeat EKG tomorrow morning. UTI: Repeat UA and sent for culture. Guardado catheter was inserted at [facility], hopefully we can discontinue this tomorrow. Rocephin was initiated at [facility] , will continue this here. Consulted Dr. Sweeney for orthopedic management. Consult PT and OT for evaluation tomorrow morning. May need SNF or IRU given pelvic and humerus fx. Hyperglycemia, Type 2 diabetes: Will monitor blood sugars and resume home medications. For pain control: Melrose and IV Dilaudid. Patient has allergies to codeine and morphine. Code status: DNR. JAYANT MONROY MD 11/09/16 4375: Past Medical History Current Medications Home Meds Active Scripts Polyethylene Glycol 3350 (Miralax) 17 Gm Packet, 17 GM PO DAILY for 30 Days Prov:OSMANI OVALLE APRN 10/10/15 Sennosides/Docusate Sodium (Senna Plus Tablet) 1 Tab Tablet, 2 TAB PO BID for 30 Days, TAB Prov:OSMANI OVALLE APRN 10/10/15 Reported Medications Hydrocodone/Apap ([place] 7.5-325 Tablet) 1 Each Tablet, 1-2 TAB PO Q6H Y for PAIN , TAB 10/15/15 Insulin Glargine,Hum.rec.anlog (Lantus) 100 Unit/Ml Inj, 45 UNIT SQ PM, VIAL 10/09/15 Cholecalciferol (Vitamin D3) (Vitamin D) 1,000 Unit Capsule, 1000 MG PO QID 10/09/15 Vitamin E (Dl,Tocopheryl Acet) (Vitamin E) 400 Unit Capsule, 400 UNIT PO QID, CAP 10/09/15 Nitroglycerin (Nitroglycerin 24 HR Patch 0.2 MG/HR) 1 Each Patch.td24, 1 PATCH TOP DAILY, #30 ON IN AM OFF AT HS 10/09/15 Gabapentin (Gabapentin) 300 Mg Capsule, 1 TAB PO PRN, #90 10/09/15 Atenolol (Atenolol) 50 Mg Tablet, 0.5 TAB PO BID, #45 10/09/15 [Vitamin B] No Conflict Check, 1 SQ MONTHLY 10/09/15 Rosuvastatin Calcium (Crestor) 20 Mg Tablet, 20 MG PO HS, TAB Take 1 tablet, by mouth, one time a day at bedtime. 10/09/15 Clopidogrel Bisulfate (Clopidogrel) 75 Mg Tablet, 1 TAB PO DAILY, #60 10/09/15 Losartan Potassium (Losartan Potassium) 50 Mg Tablet, 50 MG PO DAILY, TAB 10/09/15 Insulin Lispro (Humalog) 100 Unit/1 Ml Cartridge, 24 UNIT SQ TIDWM, VIAL 10/09/15 Insulin Glargine (Lantus) 100 U/Ml Cartridge, 40 U SQ AM 06/21/12 Niacin (Niacin) 500 Mg Capsule.sa, 500 MG PO DAILY 06/21/12 Aspirin (Baby Aspirin) 81 Mg Tab.chew, 81 MG PO DAILY 06/21/12 Allergies: Coded Allergies: Penicillins (Verified Allergy, Unknown, RASH, 10/09/15) codeine (Verified Allergy, Unknown, 10/09/15) morphine (Verified Allergy, Unknown, LOW BP, 'OUT OF IT', 10/09/15) Assessment & Plan Problems: (1) Hyperkalemia Status: Acute Assessment & Plan: POA: 6.[address] [facility] with hemolysis - repeat 6.0; 5.9 at [facility]. (2) CARRIE (acute kidney injury) Assessment & Plan: Baseline 1.8; elevated at 2.3 on admit. (3) Hypernatremia Status: Acute Assessment & Plan: POA (4) Left humeral fracture Status: Acute Qualifiers: Encounter type: initial encounter Assessment & Plan: Comminuted fracture of the humeral head and neck (5) Pubic ramus fracture Status: Acute Qualifiers: Encounter type: initial encounter Assessment & Plan: Minimally displaced fractures through the left superior and inferior pubic rami (6) Fall Status: Acute Qualifiers: Encounter type: initial encounter Qualified Codes: W19.XXXA - Unspecified fall, initial encounter Assessment & Plan: Tripped over O2 tubing on 11/09/16 (7) Leukocytosis Status: Acute Qualifiers: Leukocytosis type: bandemia Qualified Codes: D72.825 - Bandemia Assessment & Plan: POA - ? secondary to UTI vs stress reaction from fracture. (8) COPD (chronic obstructive pulmonary disease) Status: Chronic Qualifiers: COPD type: emphysema Emphysema type: unspecified Qualified Codes: J43.9 - Emphysema, unspecified (9) On home O2 Status: Chronic Assessment & Plan: 3L per [place] (10) Coronary artery disease Status: Chronic Qualifiers: Coronary Disease-Associated Artery/Lesion type: [place] artery [place] vs. transplanted heart: [place] heart Associated angina: without angina Qualified Codes: I25.10 - Atherosclerotic heart disease of [place] coronary artery without angina pectoris (11) Congestive heart failure Status: Chronic Qualifiers: Congestive heart failure type: unspecified congestive heart failure type Congestive heart failure chronicity: chronic Qualified Codes: I50.9 - Heart failure, unspecified (12) Diabetes Status: Chronic (13) Hypertension Status: Chronic Qualifiers: Hypertension type: essential hypertension Qualified Codes: I10 - Essential (primary) hypertension (14) High cholesterol Status: Chronic (15) Chronic anemia Status: Chronic Assessment & Plan: receives "blood boosting" shots q3 weeks per Dr. Lennon - last one received 1 week prior to admit. (16) CKD (chronic kidney disease), stage IV Status: Chronic Plan/Intensity of Service Have independently interviewed and examined pt. Chart reviewed. Case discussed with my SHAPER SETTER. Care plan developed with my supervision; agree with above. Tripped over O2 tubing at home and fell. Landed on left arm-significant pain with landing. Hurt to moved. Called for who got help. Did not hit head or lose consciousness. Reports has been feeling sick the last 2 days - upset stomach and decreased appetite. No vomiting or diarrhea. Breathing has been stable; not having increased cough or congestion. No palpitations or chest pressure. Notes left sided chest wall pain from fall trauma. Taken to local ED where humeral and pelvic Fx identified. Potassium with elevation at 6.0 and Creatinine increased to 2.3. Arrangements made for admission to [facility] obs for further evaluation and treatment. Lungs: Decreased, no crackles/wheezes/distress CV: regular AB: soft nt/nd BS present EXT: no LE edema MSE: awake alert thoughts linear GEN: looks uncomfortable Plan; OBS. Ortho consult for Fx evaluation. IVF for hydration and CARRIE; will change to 1/2NS secondary to hypernatremia (sodium lower (135) at ER likely due to pseudohyponatremia due to hyperglycemia). Hold ARB and Diuretics. Continue Lantus. Will give 25 units regular insulin SQ and recheck sugars in 1 hour. Rocephin given at [facility] ED due to leukocytosis and possible UTI. Monitor Tele with hyperkalemia. Monitor lab. Guardado placed to monitor urinary output. PT/ OT tomorrow to assess functional status. ODALIS TREVIÑO APRN November 09, 2016 16:24 JAYANT MONROY MD November 09, 2016 17:55
[2016-11-09 17:08] LABS: HCT - HEMATOCRIT 35.1 % (36-46); MEAN CORPUSCULAR HGB 30.5 UUG (26-34); MEAN CORPUSCULAR HGB CONC(MCHC 31.3 GM/DL (31-37); MEAN CORPUSCULAR VOLUME 97.2 UM3 (80-100); MEAN PLATELET VOLUME 9.7 UM3 (9.4-12.4); RED BLOOD COUNT 3.61 M/MM3 (4.00-5.20); WBC - WHITE BLOOD COUNT 16.5 T/MM3 (4.5-11.0)
[2016-11-09] MEDS ORDERED: ALBUTEROL/IPRATROPIUM INHAL. 2.5mg-0.5mg/3ml Neb. AEROSOL PRN (17:15)
[2016-11-09 17:17] LABS: ANION GAP 16 MEQ/L (5-15); BUN/CREATININE RATIO 31 RATIO (6-26); CALCIUM 9.5 MG/DL (8.4-10.2); CHLORIDE 105 MEQ/L (98-107); CO2 - CARBON DIOXIDE 26 MEQ/L (22-30); GLOMERULAR FILTRATION RATE 24; GLUCOSE 446 MG/DL (65-110); POTASSIUM 5.9 MEQ/L (3.6-5); SODIUM 147 MEQ/L (134-144)
[2016-11-09] MEDS ORDERED: INSULIN REGULAR 100 UNIT/ML SQ ONE ×2 (17:30→19:30)
[2016-11-09 17:45] LABS: BAND NEUTROPHILS # 2.3 T/MM3; BASOPHILS # (MANUAL) 0.2 T/MM3 (0-0.2); LYMPHOCYTES # (MANUAL) 0.8 T/MM3 (1-4.8); MONOCYTES # (MANUAL) 0.2 T/MM3 (0-0.8); TOTAL CELLS COUNTED 100 %
[2016-11-09 17:46] LABS: ANISOCYTOSIS 1+; POIKILOCYTOSIS 1+
[2016-11-09] MEDS: HYDROCODONE/APAP 5 mg/325 mg TABLET PO PRN (18:27)
[2016-11-09] MEDS ORDERED: DEXTROSE 50% SYRINGE 50ml (Eq. 1 AMP) IV PRN (19:30)
[2016-11-09] MEDS ORDERED: GLUCOSE ORAL GEL 40% 37.5 G TUBE PO PRN (19:30)
[2016-11-09] MEDS: 1/2 NS 1,000 ML IV SCH (19:31)
--- NOTE | 2016-11-09 19:31 | NUR ---
BGM Novolin insulin 25 units given as ordered. Will recheck BGM in one hour per Dr. pepper
[2016-11-09] MEDS ORDERED: IPRA12.9 INH (19:44)
[2016-11-09] MEDS ORDERED: TORS20TA4 PO (19:48)
[2016-11-09] MEDS ORDERED: CYAN10009 PO (19:53)
[2016-11-09] MEDS: ALBUTEROL/IPRATROPIUM INHAL. 2.5mg-0.5mg/3ml Neb. AEROSOL SCH (20:52)
[2016-11-09] MEDS: HYDROMORPHONE 2mg/ml INJECTION IV PRN (20:57)
--- NOTE | 2016-11-09 20:57 | NUR ---
activity back from xray. Severe pain to L shoulder and pelvic area with transfer from cart to bed. Pt. requests IV pain med, states the pain pills take too long to work. Dilaudid given
--- NOTE | 2016-11-09 21:09 | CONSPD ---
Consultation Info Date DATE: 11/09/16 TIME: 21:03 Reason for Consultation: left proximal humerus fracture and pubic rami fractures Impression/Recommendation Impression/Recommendation: (1) Pubic ramus fracture Status: Acute Qualifiers: Encounter type: initial encounter Fracture type: closed Laterality: left Qualified Codes: S32.592A - Other specified fracture of left pubis, initial encounter for closed fracture Recommendation: WBAT with repeat films after ambulating 50 feet (2) Left humeral fracture Status: Acute Qualifiers: Encounter type: initial encounter Fracture type: closed Fracture morphology: comminuted Fracture alignment: displaced Recommendation: Will need surgical intervention, likely a cemented hemiarthroplasty. Will need medical clearance for surgery. Ortho HPI HPI Elements Location: FOUND shoulder (left) Injury: Yes Pain: FOUND sharp Onset: Sudden Severity: FOUND severe Duration: FOUND 6-12 hours Previous Surgery: No Previous Injury: No HPI Fell onto left side this morning after tripping on O2 tubing. Complain of pain in left hip and left shoulder. Limited active ROM of shoulder. Unable to bear weight initially. No previous injuries to left shoulder or left hip/pelvis. Review of Systems Constitutional: DENIES: appetite decrease, chills, dizziness, fever, weakness Cardiovascular DENIES: chest pain Vascular: DENIES: pedal edema Pulmonary Respiratory: dyspnea (chronic - on oxygen), DENIES: cough GI Upper Abdomen: DENIES: nausea, vomiting Lower Abdomen: constipation, DENIES: diarrhea General: other (Guardado inserted in [place]), DENIES: dysuria, frequency Musculoskeletal General: see HPI Integumentary Skin: DENIES: rash Neurological General: DENIES: headache, memory disturbances, seizures, syncope Psychiatric Psychiatric: DENIES: depression Hematologic/Lymphatic anemia All Other Systems Reviewed (remainder of 10-point ROS Neg.) Past Medical History Adult Problem List Updates Chronic Anemia- Decreased bone marrow production Coronary artery disease. Congestive heart failure. CKD stage IV COPD Diabetes type 2 hypertension Elevated cholesterol Oxygen dependent - 3L Surgical History Patient's Surgical History: Right carotid endarterectomy-09/23/15, Dr. Staples Left carotid jxdrkmicdzyaul-3-4 years ago Coronary stent-2014(Dr. Tyler) Tubal ligation Cholecystectomy-01/2015 Colonoscopy-06/2012 (Negative) Tailbone cyst removed in the Current Medications Aspirin (Baby Aspirin) 81 Mg Tab.chew, 81 MG PO DAILY, (Reported) Last Taken: Unknown Dose on 11/08/16 08 Atenolol (Atenolol) 50 Mg Tablet, 0.5 TAB PO BID, (Reported) Last Taken: Unknown Dose on 11/08/161999 Clopidogrel Bisulfate (Clopidogrel ) 75 Mg Tablet, 1 TAB PO DAILY, (Reported) Last Taken: Unknown Dose on 11/08/16 09 Cyanocobalamin (Vitamin B-12) ( Vitamin B-12) 1,000 Mcg Tablet, 1 TAB PO DAILY, (Reported) Last Taken: Unknown Dose on 11/08/16 Gabapentin (Gabapentin) 300 Mg Capsule , 1 TAB PO TID, (Reported) Last Taken: Unknown Dose on 11/08/161999 Insulin Glargine (Lantus) 100 U/Ml Cartridge, 50 U SQ AMHS, (Reported) Last Taken: 50 U on 11/08/161999 Insulin Lispro (Humalog) 100 Unit/1 Ml Cartridge, 26 UNIT SQ BID, (Reported) Last Taken: Unknown Dose on 11/08/161999 Ipratropium [place] (Atrovent Hfa) 200 Puff/12.9 G Inhaler, 2 PUFF INH QID PRN for SHORTNESS OF AIR, (Reported) Last Taken: Unknown Dose on Unknown Date & Time Losartan Potassium ( Losartan Potassium) 50 Mg Tablet, 50 MG PO DAILY, (Reported) Last Taken: Unknown Dose on 11/08/161999 Nitroglycerin (Nitroglycerin 24 HR Patch 0.2 MG/HR) 1 Each Patch.td24, 1 PATCH TOP DAILY, (Reported) ON IN AM OFF AT HS Last Taken: Unknown Dose on 11/08/16799 Polyethylene Glycol 3350 (Miralax) 17 Gm Packet, 17 GM PO DAILY Last Taken: Unknown Dose on 10/27/16 09 Rosuvastatin Calcium (Crestor) 20 Mg Tablet, 20 MG PO HS, (Reported) Take 1 tablet, by mouth, one time a day at bedtime. Last Taken: Unknown Dose on 11/08/161999 Sennosides/Docusate Sodium (Senna Plus Tablet) 1 Tab Tablet, 2 TAB PO BID Last Taken: Unknown Dose on 11/08/161999 Torsemide (Torsemide) 20 Mg Tablet , 1 TAB PO QOD, (Reported) Last Taken: Unknown Dose on 4/29/17 0800 Allergies Allergies: Coded Allergies: Penicillins (Verified Allergy, Unknown, RASH, 10/09/15) codeine (Verified Allergy, Unknown, 10/09/15) morphine (Verified Allergy, Unknown, LOW BP, 'OUT OF IT', 10/09/15) Family History Family History: Mother- Omentum Cancer Father- acute leukemia Sister- cancer Brother- cell cancer Also positive for heart problems. Vaccines apr 2015 doesn't remember 7-8 years ago Social History Smoking Status: Former smoker (quit 30 years ago) Alcohol Intake: none Marital Status: Sexuality: male partner Current Occupational Status: retired Advance Directives: No DPOA for Healthcare Only Physical Exam General General: obese Respiratory FOUND non-labored Cardiovascular FOUND pedal pulses intact Musculoskeletal Comments ROM of left shoulder limited by pain. Sensation is intact to LUE. Good radial pulses. Compartments soft. Integumentary FOUND dry, FOUND pink, FOUND warm Neurologic FOUND intact to light touch, FOUND no deficits Psychiatric FOUND alert, FOUND normal affect Laboratory Laboratory Tests Test 11/09/16 16:55 White Blood Count 16.5T/MM3 Red Blood Count 3.61M/MM3 Hemoglobin 11.0GM/DL Hematocrit 35.1% Mean Corpuscular Volume 97.2UM3 Mean Corpuscular Hemoglobin 30.5UUG Mean Corpuscular Hemoglobin Concent 31.3GM/DL RDW Standard Deviation 48.1FL Platelet Count 391T/MM3 Mean Platelet Volume 9.7UM3 Immature Granulocyte % (Auto) % Neutrophils (%) (Auto) % Lymphocytes (%) (Auto) % Monocytes (%) (Auto) % Eosinophils (%) (Auto) % Basophils (%) (Auto) % Absolute Immature Granulocyte (auto T/MM3 Absolute Neutrophils (auto) T/MM3 Absolute Lymphocytes (auto) T/MM3 Absolute Monocytes (auto) T/MM3 Absolute Eosinophils (auto) T/MM3 Absolute Basophils (auto) T/MM3 Neutrophils % (Manual) 79.0% Band Neutrophils % 14.0% Lymphocytes % (Manual) 5.0% Monocytes % (Manual) 1.0% Basophils % (Manual) 1.0% Absolute Neutrophils (Manual) 13.0T/MM3 Band Neutrophils # 2.3T/MM3 Lymphocytes # (Manual) 0.8T/MM3 Monocytes # (Manual) 0.2T/MM3 Basophils # (Manual) 0.2T/MM3 Poikilocytosis 1+ Anisocytosis 1+ Red Cell Morphology Comment Abnormal Turbidity < 20 Sodium Level 147MEQ/L Potassium Level 5.9MEQ/L Chloride Level 105MEQ/L Carbon Dioxide Level 26MEQ/L Anion Gap 16MEQ/L Blood Urea Nitrogen 62.0MG/DL Creatinine 2.0MG/DL Glomerular Filtration Rate Calc 24 BUN/Creatinine Ratio 31RATIO Glucose Level 446MG/DL Calculated Osmolality 319MOSM/KG Calcium Level 9.5MG/DL Icterus Index < 2 Troponin I 0.041ng/ml Chemistry Specimen Hemolysis < 15 ALAN FAN MD November 09, 2016 21:07
--- NOTE | 2016-11-09 21:10 | NUR ---
comfort pt. states feels "dizzy" when turning head, and "like everything is magnified". States "I don't tolerate medications well". VS stable, see graphic. States feels "like I can't breath", O2 sats high 90s. Denies chest pain. Will recheck BGM per pt. request
[2016-11-09] MEDS: SENNA + DOCUSATE TAB PO SCH (21:12)
--- NOTE | 2016-11-09 21:20 | NUR ---
BGM down to 323. Called result to Dr. Monroy as requested, no further orders given
[2016-11-09 21:36] LABS: BLOOD, URINE 2+ (NEGATIVE); COLOR,URINE YELLOW (YELLOW); LEUKOCYTE ESTERASE ,URINE NEGATIVE (NEGATIVE); NITRITE,URINE NEGATIVE (NEGATIVE); UROBILINOGEN,URINE 0.2 EU/DL (NORMAL)
[2016-11-09 21:44] LABS: BACTERIA,URINE NONE SEEN (NEGATIVE); RBC,URINE NONE SEEN /HPF (0-3); SQUAMOUS EPITHELIAL CELL,UR NONE SEEN; WBC,URINE NONE SEEN /HPF (0-5)
[2016-11-09] MEDS ORDERED: INSULIN GLARGINE 100 UNIT/ML SQ SCH (22:00)
--- NOTE | 2016-11-10 02:35 | NUR ---
rest sleeps for short intervals, resp. unlabored. O2 in place at 4L/nc, requests not to use CPAP as it is uncomfortable and "not fitting well". Groaning with pain at times. Requests pain pill, [place] given
[2016-11-10] MEDS: HYDROCODONE/APAP 5 mg/325 mg TABLET PO PRN ×3 (02:36→20:09)
[2016-11-10] MEDS: HYDROMORPHONE 2mg/ml INJECTION IV PRN ×3 (04:56→15:18)
--- NOTE | 2016-11-10 05:00 | NUR ---
comfort slept for a short time, now requests IV pain med, 0.2 mg Dilaudid given. Refuses to turn during noc, states pain too severe
[2016-11-10 05:19] LABS: BASOPHILS % (AUTO) 0.2 % (0-2); EOSINOPHILS % (AUTO) 0.2 % (0-4); HCT - HEMATOCRIT 31.1 % (36-46); HGB - HEMOGLOBIN 9.5 GM/DL (12-16); IMMATURE GRANULOCYTE # (AUTO) 0.03 T/MM3 (0.00-0.03); IMMATURE GRANULOCYTE % (AUTO) 0.2 % (0.0-0.5); MEAN CORPUSCULAR HGB 29.6 UUG (26-34); MEAN CORPUSCULAR HGB CONC(MCHC 30.5 GM/DL (31-37); MEAN CORPUSCULAR VOLUME 96.9 UM3 (80-100); MEAN PLATELET VOLUME 9.8 UM3 (9.4-12.4); MONOCYTES # (AUTO) 1.3 T/MM3 (0-0.8); MONOCYTES % (AUTO) 8.4 % (0-9.0); NEUTROPHILS #(AUTO)-ABSOLUTE 10.6 T/MM3 (1.8-7.7); RED BLOOD COUNT 3.21 M/MM3 (4.00-5.20)
[2016-11-10 05:31] LABS: ALBUMIN 3.5 G/DL (3.5-5.0); ALBUMIN/GLOBULIN RATIO 0.9 RATIO (1.1-2.2); ALKALINE PHOSPHATASE 86 U/L (38-126); ALT (SGPT) 32 U/L (9-52); ANION GAP 13 MEQ/L (5-15); AST (SGOT) 23 U/L (14-36); BUN/CREATININE RATIO 33 RATIO (6-26); CALCIUM 8.8 MG/DL (8.4-10.2); CHLORIDE 101 MEQ/L (98-107); CO2 - CARBON DIOXIDE 25 MEQ/L (22-30); CREATININE 1.7 MG/DL (0.7-1.2); GLOMERULAR FILTRATION RATE 30; GLUCOSE 200 MG/DL (65-110); POTASSIUM 5.4 MEQ/L (3.6-5); SODIUM 139 MEQ/L (134-144); TOTAL PROTEIN 7.3 G/DL (6.3-8.2)
--- NOTE | 2016-11-10 05:50 | NUR ---
lab notified Dr. Russo of increasing troponin of 0.160, EKG reading. Pt. denies chest pain. Resp. unlabored. Orders to repeat trop @ 1200
[2016-11-10] MEDS: 1/2 NS 1,000 ML IV SCH ×2 (06:18→18:14)
[2016-11-10 07:13] VITALS: O2SAT 97
[2016-11-10] MEDS: ALBUTEROL/IPRATROPIUM INHAL. 2.5mg-0.5mg/3ml Neb. AEROSOL SCH ×4 (07:13→19:49)
[2016-11-10 07:30] VITALS: BP 153/66; PULSE 101; PULSE 106; RESP 18; TEMP 98.1; O2SAT 93
[2016-11-10] MEDS ORDERED: INSULIN GLARGINE 100 UNIT/ML SQ SCH (09:00)
[2016-11-10] MEDS ORDERED: NICOTINE PATCH REMOVAL TD SCH (09:00)
--- NOTE | 2016-11-10 09:09 | DI ---
Indication: ITS.REASON: Sup / Inf rami fxs. PROCEDURE: PELVIS 1-2 VIEW DEDICATED PELV: Encounter: Initial Comparison: Pelvis radiograph dated October 08, 2015 Findings: Mildly comminuted and displaced fractures of the left superior and inferior pubic rami. No additional acute fracture or dislocation seen. Bony demineralization limiting detection of nondisplaced fractures. Impression: Closed posttraumatic left pubic rami fractures. .
--- NOTE | 2016-11-10 09:10 | DI ---
Indication: ITS.REASON: Shoulder pain PROCEDURE: SHOULDER LEFT 2-3 VIEWS: Encounter: Initial Comparison: None Findings: Comminuted displaced fracture of the left humeral head and surgical neck. Distal fracture fragment is displaced medially by over one shaft width. Large comminuted fragment comprising the greater tuberosity is also displaced fairly significantly. No definite additional acute fracture seen. The humeral head is inferiorly subluxed. Impression: Closed posttraumatic fracture of the left humeral head and surgical neck. .
--- NOTE | 2016-11-10 09:44 | NUR ---
CM CM IN TO VISIT WITH PT. SHE IS ALERT AND ORIENTED. SHE IS SHOWING VISIBLE SIGNS OF PAIN. RN IS GETTING PAIN MEDS. HER DAUGHTER IS PRESENT. CM VISITS WITH PT ABOUT POSSIBLE NEED FOR SNF [place]ON [place]. PT AND DAUGHTER ARE GIVEN LIST OF AREA SNF. THEY WILL REVIEW AND LET CM KNOW TO WHICH FACILITIES THEY WOULD LIKE REFERRALS MADE. THEY ARE GIVEN ADVANCED DIRECTIVES INFORMATION AND CM CONTACT INFORMATION. Addendum: 11/10/16 at 0991 by CHEVY PETIT RN Amended: Links added.
[2016-11-10] MEDS: CEFTRIAXONE 1 G in NORMAL SALINE 100 ML IV SCH (09:47)
[2016-11-10] MEDS: SENNA + DOCUSATE TAB PO SCH ×2 (09:47→20:52)
[2016-11-10] MEDS: NITROGLYCERIN 0.2 MG/HR PATCH TD SCH (09:48)
[2016-11-10] MEDS: INSULIN REGULAR 100 UNIT/ML SQ SCH ×2 (11:09→18:29)
--- NOTE | 2016-11-10 11:10 | NUR ---
PAIN pt is having pain. prn pain meds given as charted.
[2016-11-10 11:30] VITALS: O2SAT 94
--- NOTE | 2016-11-10 12:17 | PDORTHOPN ---
Subjective Date DATE: 11/10/16 TIME: 12:11 Subjective Continues to have pain in the left shoulder and left hip. Started to have some numbness in the thumb, index, and middle finger. No other changes. Objective Vital Signs Vital signs Vital Signs 11/10/16 11/10/16 11/10/16 11/10/16 07:13 07:13 07:24 07:30 Pulse 100 96 106 Resp 20 18 Pulse Ox 97 11/10/16 11/10/16 11/10/16 11/10/16 07:30 11:30 11:30 11:39 Temp 98.1 Pulse 101 104 96 Resp 18 20 B/P 153/66 Pulse Ox 93 94 O2 Delivery Nasal Cannula O2 Flow Rate 4.00 Height (Feet): 5 Height (Inches): 2.00 Weight (Kilograms): 166.100 General General Appearance: Well Nourished, Well Developed Respiratory (Brief) Respiratory Brief: FOUND: non-labored Cardiovascular (Brief) Cardiac: FOUND: calf easily compressible, calf soft, nontender, pedal pulses intact Integumentary (Brief) Integumentary Brief: FOUND dry, FOUND pink, FOUND warm Neurologic (Brief) Comments good active ROM of left digits. good radial pulse, good cap refill in digits Laboratory Laboratory Laboratory Tests 11/09/16 16:55 11/10/16 04:44 Laboratory Tests 11/09/16 16:55 11/10/16 04:44 Assessment & Plan Problems: (1) Pubic ramus fracture Status: Acute Qualifiers: Encounter type: initial encounter Fracture type: closed Laterality: left Qualified Codes: S32.592A - Other specified fracture of left pubis, initial encounter for closed fracture Assessment & Plan: WBAT with repeat films after ambulating 50 feet (2) Left humeral fracture Status: Acute Qualifiers: Encounter type: initial encounter Fracture type: closed Fracture morphology: comminuted Fracture alignment: displaced Assessment & Plan: I discussed the fracture with patient and family. Because of multiple medical problems and poor bone quality, I recommended a trial of nonoeperative treatment. We will ask her to sit upright as much as possible and get new films in this position to see if we can help improve alignment nonsurgically. May work on ROM of left elbow and wrist but no PT for shoulder at this time. Sling as needed. Hospital Course Summary Disclaimer The visit summary below is not to be considered part of the above Progress Note. Hospital Course 11/09/16 Admit, observation status, under Dr. Monroy. Diagnoses: Acute kidney injury, abnormal EKG, possible UTI, and orthopedic injuries status post fall. IV fluids: Normal saline at 100 mL for Acute kidney injury and hyperkalemia. Monitor for fluid overload, history of CHF. Repeat BMP to reassess creatinine and hyperkalemia. Repeat CBC to follow-up on leukocytosis and anemia. We'll trend troponins and monitor on telemetry. Repeat EKG tomorrow morning. UTI: Repeat UA and sent for culture. Guardado catheter was inserted at [facility], hopefully we can discontinue this tomorrow. Rocephin was initiated at [facility] , will continue this here. Consulted Dr. Sweeney for orthopedic management. Consult PT and OT for evaluation tomorrow morning. May need SNF or IRU given pelvic and humerus fx. Hyperglycemia, Type 2 diabetes: Will monitor blood sugars and resume home medications. For pain control: [place] and IV Dilaudid. Patient has allergies to codeine and morphine. Code status: DNR. ALAN SWEENEY MD November 10, 2016 12:14
--- NOTE | 2016-11-10 13:35 | DI ---
Indication: ITS.REASON: shoulder FX PROCEDURE: SHOULDER LEFT 3 VIEWS: Encounter: Initial Comparison: November 09, 2016 Findings: Comminuted, impacted and displaced fracture of the left humeral head and surgical neck is again seen without significant change in alignment. There is a sharp cortical margin at the superior aspect of the glenoid that is probably due to an osteophyte rather than an acute fracture. No new fracture or dislocation. Impression: Grossly stable alignment of the left proximal humeral fracture. .
--- NOTE | 2016-11-10 14:47 | PNPDOC ---
Subjective Date DATE: 11/10/16 TIME: 14:34 Subjective F/U: Hyperkalemia, CARRIE, Humeral fracture Doing fair. Pain bothersome, hurts with movement. Was up with therapy. Does not nausea and decreased appetite. Passing flatus. Breathing feels stable-some cough but little congestion. No pain with breathing. No chest pressure or pain. Objective Vital Signs Vital signs Vital Signs Date Time Temp Pulse Resp B/P Pulse Ox O2 Delivery O2 Flow Rate FiO2 11/10/16 11:39 96 11/10/16 11:30 20 94 11/10/16 07:30 98.1 153/66 Nasal Cannula 4.00 Height (Feet): 5 Height (Inches): 2.00 Weight (Kilograms): 166.100 General General Appearance: Alert, Obese, Orientated x 3, Well Nourished, Well Developed, Cooperative, Mild Distress, Looks Stated Age Eyes (Brief) Eyes: FOUND: EOMI, PERRL, NOT FOUND: scleral icterus ENMT (Brief) ENMT: FOUND: hearing intact, mucosa moist Neck (Brief) Neck: FOUND: midline, NOT FOUND: nuchal rigidity, spasm Respiratory (Brief) Respiratory: FOUND: equal bilaterally, other (No distress with O2 ), NOT FOUND : clear all martinez (Decreased, no distress ), rales, wheezes Cardiovascular (Brief) Cardiac: FOUND: regular rate, regular rhythm, NOT FOUND: pedal edema Abdomen (Brief) Abdominal: FOUND: BS normo active x4, soft, NOT FOUND: distended, tender (Brief) Female: FOUND: other (Guardado ) Extremities (Brief) Extremity : Side: Bilateral Extremity: leg Extremity Finding: FOUND: other (SCD in place ), NOT FOUND: edema Musculoskeletal (Brief) Musculoskeletal: FOUND: loss of motion (Left upper ext ) Integumentary (Brief) Integumentary: FOUND: dry, warm Neurologic (Brief) Neurological: FOUND: cranial 2-12 intact, motor (Intact ) Psychiatric (Brief) Psychiatric: FOUND: alert, attentive, normal affect, oriented Laboratory Laboratory Laboratory Tests 11/09/16 16:55 11/10/16 04:44 Laboratory Tests 11/09/16 16:55 11/10/16 04:44 Assessment & Plan Problems: (1) Hyperkalemia Status: Acute Assessment & Plan: POA: 6.7 at [facility] with hemolysis - repeat 6.0; 5.9 at [facility]. (2) CARRIE (acute kidney injury) Assessment & Plan: Baseline 1.8; elevated at 2.3 on admit. (3) Hypernatremia Status: Acute Assessment & Plan: POA (4) Left humeral fracture Status: Acute Qualifiers: Encounter type: initial encounter Fracture type: closed Fracture morphology: comminuted Fracture alignment: displaced Assessment & Plan: Comminuted fracture of the humeral head and neck (5) Pubic ramus fracture Status: Acute Qualifiers: Encounter type: initial encounter Fracture type: closed Laterality: left Qualified Codes: S32.592A - Other specified fracture of left pubis, initial encounter for closed fracture Assessment & Plan: Minimally displaced fractures through the left superior and inferior pubic rami (6) Fall Status: Acute Qualifiers: Encounter type: initial encounter Qualified Codes: W19.XXXA - Unspecified fall, initial encounter Assessment & Plan: Tripped over O2 tubing on 11/09/16 (7) Leukocytosis Status: Acute Qualifiers: Leukocytosis type: bandemia Qualified Codes: D72.825 - Bandemia Assessment & Plan: POA - ? secondary to UTI vs stress reaction from fracture. (8) COPD (chronic obstructive pulmonary disease) Status: Chronic Qualifiers: COPD type: emphysema Emphysema type: unspecified Qualified Codes: J43.9 - Emphysema, unspecified (9) On home O2 Status: Chronic Assessment & Plan: 3L per AR (10) Coronary artery disease Status: Chronic Qualifiers: Coronary Disease-Associated Artery/Lesion type: [place] artery [place] vs. transplanted heart: [place] heart Associated angina: without angina Qualified Codes: I25.10 - Atherosclerotic heart disease of [place] coronary artery without angina pectoris (11) Congestive heart failure Status: Chronic Qualifiers: Congestive heart failure type: unspecified congestive heart failure type Congestive heart failure chronicity: chronic Qualified Codes: I50.9 - Heart failure, unspecified (12) Diabetes Status: Chronic (13) Hypertension Status: Chronic Qualifiers: Hypertension type: essential hypertension Qualified Codes: I10 - Essential (primary) hypertension (14) High cholesterol Status: Chronic (15) Chronic anemia Status: Chronic Assessment & Plan: receives "blood boosting" shots q3 weeks per Dr. Lennon - last one received 1 week prior to admit. (16) CKD (chronic kidney disease), stage IV Status: Chronic Plan/Intensity of Service With continued hyperkalemia and leukocytosis despite treatments initiated in OBS , will change to Inpatient admission status. Continue with IVF due to CARRIE. Will continue Rocephin secondary to leukocytosis. Discussed with Dr Sweeney about her fracture - not looking at surgical intervention. Will restart ASA and Plavix. Restart Home Atenolol does ab HR and BP increasing. Hold ARB due to CARRIE and hyperkalemia. PT/OT to help functional status. Continue with pain control. Recheck CBC in am due to leukocytosis and anemia. Repeat BMP in am due to CARRIE and Hyperkalemia. Case discussed with CM and Dr Sweeney. Time spent with pt care 35 minutes. Ortho consult for Fx evaluation. IVF for hydration and CARRIE; will change to 1/ 2NS secondary to hypernatremia (sodium lower (135) at ER likely due to pseudohyponatremia due to hyperglycemia). Hold ARB and Diuretics. Continue Lantus. Will give 25 units regular insulin SQ and recheck sugars in 1 hour. Rocephin given at [facility] ED due to leukocytosis and possible UTI. Monitor Tele with hyperkalemia. Monitor lab. Guardado placed to monitor urinary output. PT/ OT tomorrow to assess functional status. DVT Prophylaxis: SCD'S Code Status Do Not Resuscitate Hospital Course Summary Disclaimer The hospital course summary below is not to be considered part of the above Progress Note. Hospital Course Summary 11/09/16 Admit, observation status, under Dr. Monroy. Diagnoses: Acute kidney injury, abnormal EKG, possible UTI, and orthopedic injuries status post fall. IV fluids: Normal saline at 100 mL for Acute kidney injury and hyperkalemia. Monitor for fluid overload, history of CHF. Repeat BMP to reassess creatinine and hyperkalemia. Repeat CBC to follow-up on leukocytosis and anemia. We'll trend troponins and monitor on telemetry. Repeat EKG tomorrow morning. UTI: Repeat UA and sent for culture. Guardado catheter was inserted at [facility], hopefully we can discontinue this tomorrow. Rocephin was initiated at [facility] , will continue this here. Consulted Dr. Sweeney for orthopedic management. Consult PT and OT for evaluation tomorrow morning. May need SNF or IRU given pelvic and humerus fx. Hyperglycemia, Type 2 diabetes: Will monitor blood sugars and resume home medications. For pain control: [place] and IV Dilaudid. Patient has allergies to codeine and morphine. Code status: DNR. 5/2 Doing fair. Pain bothersome, hurts with movement. Was up with therapy. Does not nausea and decreased appetite. Passing flatus. Breathing feels stable-some cough but little congestion. No pain with breathing. No chest pressure or pain. Creatinine decrease to 1.7. Potassium 5.4. WBC 15.0. With continued hyperkalemia and leukocytosis despite treatments initiated in OBS , will change to Inpatient admission status. Continue with IVF due to CARRIE. Will continue Rocephin secondary to leukocytosis. Discussed with Dr Sweeney about her fracture - not looking at surgical intervention. Will restart ASA and Plavix. Restart Home Atenolol does ab HR and BP increasing. Hold ARB due to CARRIE and hyperkalemia. PT/OT to help functional status. Continue with pain control. Recheck CBC in am due to leukocytosis and anemia. Repeat BMP in am due to CARRIE and hyperkalemia. JAYANT MONROY MD November 10, 2016 14:38
[2016-11-10 15:46] VITALS: BP 159/69; PULSE 106; RESP 20; TEMP 96.4; O2SAT 91
[2016-11-10] MEDS: ATENOLOL 25 MG TABLET PO SCH ×2 (15:57→20:52)
--- NOTE | 2016-11-10 16:03 | NUR ---
Dm screen Diet: CC [address] [place] [address] Jeor, with an activity factor or 1.3 and an injury factor of 1.0 calorie needs are ~ 1583 Patient states she checks her blood sugars every other day twice a day, and they range from 98-200. Patient states she takes her insulin faithfully but does not follow a low-carb diet. The patient states she had outpatient diabetes counseling here at [facility] about a year ago and felt it was very beneficial. The patient didn't feel like she needed further diabetes education. human resources intern briefly went over "Healthy Eating 1,2,3" handout with the patient and gave some suggestions for diabetic-friendly alternatives to her favorite foods. After evaluating the patient's caloric needs ,advertising internship recommends diet be changed to CC 1600kcal. Dm screen Diet: CC [address] [place] [address] Jeor, with an activity factor or 1.3 and an injury factor 1.0 calorie needs are ~1583 to maintain current weight RD recommends 1600kcal CC diet, RD spoke with RN regarding calorie change. RN will address diet changes with physician Patient states she checks her blood sugars every other day twice a day, and they range from 98-200. Patient states she takes her insulin faithfully but does not follow a low-carb diet. The patient states she had outpatient diabetes counseling here at [facility] about a year ago and felt it was very beneficial. The patient didn't feel like she needed further diabetes education. human resources intern briefly went over "Healthy Eating 1,2,3" handout with the patient and gave some suggestions for diabetic-friendly alternatives to her favorite foods. RD available at 1406 Addendum: 11/10/16 at [address] Student charting reviewed by Sales Teacher.
--- NOTE | 2016-11-10 16:30 | NUR ---
CM CM IN TO VISIT WITH PT, SPOUSE AND DAUGHTER. THEY REQUEST REFERRALS TO [facility].
--- NOTE | 2016-11-10 18:30 | NUR ---
STATUS pt is alert and oriented X3. pt has had some pain and was given prn pain meds as charted. pt has been turned Q2H. pt sits up in bed to eat but has not ate a lot. daughter has helped feed her this shift to encourage her to eat. pt has worked with PT and OT this shift. pt will use a hemiwalker when she gets up to ambulate. pt has sat up in bed to help her shoulder with the gravity. pt states she feels better when she sits up more. pt is on O2-4L NC. pt states she is comfortable and is now sleeping. will continue to monitor pt.
--- NOTE | 2016-11-10 20:10 | NUR ---
comfort states pain to L shoulder, requests [place]. Assisted to reposition to R side for comfort
[2016-11-10 20:54] VITALS: BP 142/66; PULSE 85
[2016-11-10] MEDS: NITROGLYCERIN PATCH REMOVAL TD SCH (20:54)
[2016-11-10] MEDS: INSULIN GLARGINE 100 UNIT/ML SQ SCH (21:52)
[2016-11-10 23:45] VITALS: BP 135/63; PULSE 76; RESP 20; TEMP 99.4; O2SAT 92
[2016-11-11] MEDS: 1/2 NS 1,000 ML IV SCH (04:33)
--- NOTE | 2016-11-11 04:59 | NUR ---
rest sleeps for long intervals, CPAP in place. Now requests to go back to ne. [place] repositioning, grimacing with pain as moved, soon relaxes and dozes to sleep
--- NOTE | 2016-11-11 05:15 | NUR ---
resp requests to take CPAP off, back to 4L/nc. Assisted to reposition slightly on R side w/ pillow supporting L shoulder
[2016-11-11 05:17] LABS: BASOPHILS % (AUTO) 0.2 % (0-2); EOSINOPHILS # (AUTO) 0.1 T/MM3 (0-0.5); EOSINOPHILS % (AUTO) 0.9 % (0-4); HCT - HEMATOCRIT 28.9 % (36-46); HGB - HEMOGLOBIN 8.9 GM/DL (12-16); IMMATURE GRANULOCYTE # (AUTO) 0.03 T/MM3 (0.00-0.03); IMMATURE GRANULOCYTE % (AUTO) 0.2 % (0.0-0.5); LYMPHOCYTES # (AUTO) 2.3 T/MM3 (1-4.8); LYMPHOCYTES % (AUTO) 17.2 % (23-45); MEAN CORPUSCULAR HGB 29.5 UUG (26-34); MEAN CORPUSCULAR HGB CONC(MCHC 30.8 GM/DL (31-37); MEAN CORPUSCULAR VOLUME 95.7 UM3 (80-100); MEAN PLATELET VOLUME 9.6 UM3 (9.4-12.4); MONOCYTES % (AUTO) 7.3 % (0-9.0); NEUTROPHILS % (AUTO) 74.2 % (33-66); RED BLOOD COUNT 3.02 M/MM3 (4.00-5.20); WBC - WHITE BLOOD COUNT 13.5 T/MM3 (4.5-11.0)
[2016-11-11 05:31] LABS: ANION GAP 10 MEQ/L (5-15); BUN/CREATININE RATIO 29 RATIO (6-26); CALCIUM 9.2 MG/DL (8.4-10.2); CHLORIDE 102 MEQ/L (98-107); CO2 - CARBON DIOXIDE 26 MEQ/L (22-30); CREATININE 1.4 MG/DL (0.7-1.2); GLOMERULAR FILTRATION RATE 37; GLUCOSE 93 MG/DL (65-110); POTASSIUM 4.7 MEQ/L (3.6-5); SODIUM 138 MEQ/L (134-144)
[2016-11-11] MEDS: ALBUTEROL/IPRATROPIUM INHAL. 2.5mg-0.5mg/3ml Neb. AEROSOL SCH ×4 (07:40→20:35)
[2016-11-11 07:49] VITALS: BP 148/63; PULSE 77; RESP 20; TEMP 97; O2SAT 93
[2016-11-11 08:00] VITALS: PULSE 78
[2016-11-11] MEDS: HYDROCODONE/APAP 5 mg/325 mg TABLET PO PRN (08:04)
--- NOTE | 2016-11-11 08:05 | NUR ---
CO OF generalized pain Narco 5 two tabs po. ate only a few bites of food
[2016-11-11] MEDS: CEFTRIAXONE 1 G in NORMAL SALINE 100 ML IV SCH (09:14)
[2016-11-11] MEDS: ASPIRIN 81 MG CHEWABLE TABLET PO SCH (09:15)
[2016-11-11] MEDS: CLOPIDOGREL 75 MG TABLET PO SCH (09:15)
[2016-11-11] MEDS: NITROGLYCERIN 0.2 MG/HR PATCH TD SCH (09:15)
[2016-11-11] MEDS: ATENOLOL 25 MG TABLET PO SCH ×2 (09:15→20:58)
[2016-11-11] MEDS: SENNA + DOCUSATE TAB PO SCH ×2 (09:15→20:58)
[2016-11-11] MEDS: INSULIN REGULAR 100 UNIT/ML SQ SCH ×2 (09:20→17:00)
[2016-11-11] MEDS: INSULIN GLARGINE 100 UNIT/ML SQ SCH ×2 (09:21→21:00)
--- NOTE | 2016-11-11 09:25 | NUR ---
[facility] IS FULL. NO SNF BED AVAILABLE.
--- NOTE | 2016-11-11 10:54 | NUR ---
p.t. Up tp recliner per P.T tolerated fair
--- NOTE | 2016-11-11 10:54 | NUR ---
CM CM IN TO VISIT WITH PT. SHE IS ALERT AND ORIENTED. SHE IS MADE AWARE THAT [facility] IS FULL AND THAT CM IS WAITING TO HEAR BACK FROM [facility] AND [facility].
--- NOTE | 2016-11-11 12:00 | NUR ---
Co of buttocks pain Medicated with Dilaudid 0.2 mg sivp
[2016-11-11] MEDS: HYDROMORPHONE 2mg/ml INJECTION IV PRN (12:16)
--- NOTE | 2016-11-11 12:18 | NUR ---
CM PER PHONE CONVERSATION WITH CORRINA FROM [facility], THEY CAN ACCEPT PT FOR SNF. THEY WILL BE OUT WEDNESDAY AFTERNOON TO VISIT WITH PT.
--- NOTE | 2016-11-11 12:20 | NUR ---
Assited back to bed with 2 transfers very poorly was unable to take to maney steps co of feeling faint assited back to bed repostioned for confort.
--- NOTE | 2016-11-11 13:39 | NUR ---
CM PER PHONE CONVERSATION WITH CHEVY FROM [facility], THEY CAN ACCEPT PT FOR SNF.
--- NOTE | 2016-11-11 13:47 | NUR ---
VITO CM IN TO VISIT WITH PT. SHE IS MADE AWARE THAT [facility] AND [facility] CAN ACCEPT HER FOR SNF. [facility] WILL VISIT HER TOMORROW AT 1400. THIS SAME INFORMATION IS GIVEN TO PT DAUGHTER, MATTHEW, VIA TELEPHONE CONVERSATION.
[2016-11-11] MEDS: ONDANSETRON 4mg/2ml INJECTION IV PRN (14:25)
--- NOTE | 2016-11-11 14:27 | PNPDOC ---
Subjective Date DATE: 11/11/16 TIME: 14:12 Subjective F/U: Hyperkalemia, CARRIE, Humeral fracture Appetite decreased, nausea this morning. Passing flatus, but no stool. No ab pain. Shoulder and pelvic pain varies. Pain medication help some, but need to be cautious with narcotics as will cause confusion. Strength and stability decreased, but was able to be up in chair this morning. Breathing stable. No chest pain. Objective Vital Signs Vital signs Vital Signs Date Time Temp Pulse Resp B/P Pulse Ox O2 Delivery O2 Flow Rate FiO2 11/11/16 12:16 18 11/11/16 11:27 69 11/11/16 07:49 97.0 148/63 93 Nasal Cannula 4.00 Height (Feet): 5 Height (Inches): 2.00 Weight (Kilograms): 77.000 General General Appearance: Alert, Obese, Orientated x 3, Well Nourished, Well Developed, Cooperative, Mild Distress, Other (Appears tired and uncomfortable. ) , Looks Stated Age Eyes (Brief) Eyes: FOUND: EOMI, PERRL, NOT FOUND: scleral icterus ENMT (Brief) ENMT: FOUND: hearing intact, mucosa moist Neck (Brief) Neck: FOUND: midline, NOT FOUND: nuchal rigidity, spasm Respiratory (Brief) Respiratory: FOUND: equal bilaterally, other (No distress on O2 ), NOT FOUND: clear all martinez (Decreased bilaterally ), rales, wheezes Cardiovascular (Brief) Cardiac: FOUND: regular rate, regular rhythm, NOT FOUND: pedal edema Abdomen (Brief) Abdominal: FOUND: BS normo active x4, soft, NOT FOUND: distended, tender (Brief) Female: FOUND: other (Guardado in place ) Extremities (Brief) Extremity : Side: Bilateral Extremity: leg Extremity Finding: FOUND: other (SCD in place ), NOT FOUND: edema Musculoskeletal (Brief) Musculoskeletal: FOUND: loss of motion (Left upper ext ) Integumentary (Brief) Integumentary: FOUND: dry, warm Neurologic (Brief) Neurological: FOUND: cranial 2-12 intact, motor (Intact ) Psychiatric (Brief) Psychiatric: FOUND: alert, attentive, normal affect, oriented Laboratory Laboratory Laboratory Tests 11/09/16 16:55 11/10/16 04:44 11/11/16 04:29 Laboratory Tests 11/09/16 16:55 11/10/16 04:44 11/11/16 04:29 Assessment & Plan Problems: (1) Hyperkalemia Status: Resolved Assessment & Plan: POA: 6.7 at [facility] with hemolysis - repeat 6.0; 5.9 at [facility]. (2) CARRIE (acute kidney injury) Assessment & Plan: Baseline 1.8; elevated at 2.3 on admit. (3) Hypernatremia Status: Resolved Assessment & Plan: POA (4) Left humeral fracture Status: Acute Qualifiers: Encounter type: initial encounter Fracture type: closed Fracture morphology: comminuted Fracture alignment: displaced Assessment & Plan: Comminuted fracture of the humeral head and neck (5) Pubic ramus fracture Status: Acute Qualifiers: Encounter type: initial encounter Fracture type: closed Laterality: left Qualified Codes: S32.592A - Other specified fracture of left pubis, initial encounter for closed fracture Assessment & Plan: Minimally displaced fractures through the left superior and inferior pubic rami (6) Fall Status: Acute Qualifiers: Encounter type: initial encounter Qualified Codes: W19.XXXA - Unspecified fall, initial encounter Assessment & Plan: Tripped over O2 tubing on 11/09/16 (7) Leukocytosis Status: Acute Qualifiers: Leukocytosis type: bandemia Qualified Codes: D72.825 - Bandemia Assessment & Plan: POA - ? secondary to UTI vs stress reaction from fracture. (8) COPD (chronic obstructive pulmonary disease) Status: Chronic Qualifiers: COPD type: emphysema Emphysema type: unspecified Qualified Codes: J43.9 - Emphysema, unspecified (9) On home O2 Status: Chronic Assessment & Plan: 3L per [place] (10) Coronary artery disease Status: Chronic Qualifiers: Coronary Disease-Associated Artery/Lesion type: [place] artery [place] vs. transplanted heart: [place] heart Associated angina: without angina Qualified Codes: I25.10 - Atherosclerotic heart disease of [place] coronary artery without angina pectoris (11) Congestive heart failure Status: Chronic Qualifiers: Congestive heart failure type: unspecified congestive heart failure type Congestive heart failure chronicity: chronic Qualified Codes: I50.9 - Heart failure, unspecified (12) Diabetes Status: Chronic Qualifiers: Diabetes mellitus type: type 2 Diabetes mellitus residential insulin use: with residential use Chronic kidney disease stage: stage 4 (severe) Assessment & Plan: A1C 9.6% (13) Hypertension Status: Chronic Qualifiers: Hypertension type: essential hypertension Qualified Codes: I10 - Essential (primary) hypertension (14) High cholesterol Status: Chronic Assessment & Plan: Addressed with Crestor 20mg daily. (15) Chronic anemia Status: Chronic Assessment & Plan: receives "blood boosting" shots q3 weeks per Dr. Lennon - last one received 1 week prior to admit. (16) CKD (chronic kidney disease), stage IV Status: Chronic (17) Constipation Status: Acute Qualifiers: Constipation type: drug induced constipation Qualified Codes: K59.03 - Drug induced constipation Assessment & Plan: Narcotics and decrease ambulation affecting bowel function. Plan/Intensity of Service Decrease IVF to 75cc/hr. Continue Rocephin secondary to leukocytosis. BP stable - Hold ARB due to CARRIE and hyperkalemia. Continue PT/OT to help functional status. Continue with pain control - change Paoli 5 to 10 as has been getting 2 Paoli 5s at a time. . Recheck CBC in am due to leukocytosis and anemia. Repeat BMP in am due to resolving CARRIE and hyperkalemia. CM looking into detention options for discharge. Case discussed with CM. Time spent with pt care 35 minutes. DVT Prophylaxis: SCD'S Code Status Do Not Resuscitate Hospital Course Summary Disclaimer The hospital course summary below is not to be considered part of the above Progress Note. Hospital Course Summary 11/09/16 Admit, observation status, under Dr. Monroy. Diagnoses: Acute kidney injury, abnormal EKG, possible UTI, and orthopedic injuries status post fall. IV fluids: Normal saline at 100 mL for Acute kidney injury and hyperkalemia. Monitor for fluid overload, history of CHF. Repeat BMP to reassess creatinine and hyperkalemia. Repeat CBC to follow-up on leukocytosis and anemia. We'll trend troponins and monitor on telemetry. Repeat EKG tomorrow morning. UTI: Repeat UA and sent for culture. Guardado catheter was inserted at [facility], hopefully we can discontinue this tomorrow. Rocephin was initiated at [facility] , will continue this here. Consulted Dr. Sweeney for orthopedic management. Consult PT and OT for evaluation tomorrow morning. May need SNF or IRU given pelvic and humerus fx. Hyperglycemia, Type 2 diabetes: Will monitor blood sugars and resume home medications. For pain control: Paoli and IV Dilaudid. Patient has allergies to codeine and morphine. Code status: DNR. 5/2 Doing fair. Pain bothersome, hurts with movement. Was up with therapy. Does not nausea and decreased appetite. Passing flatus. Breathing feels stable-some cough but little congestion. No pain with breathing. No chest pressure or pain. Creatinine decrease to 1.7. Potassium 5.4. WBC 15.0. With continued hyperkalemia and leukocytosis despite treatments initiated in OBS , will change to Inpatient admission status. Continue with IVF due to CARRIE. Will continue Rocephin secondary to leukocytosis. Discussed with Dr Sweeney about her fracture - not looking at surgical intervention. Will restart ASA and Plavix. Restart Home Atenolol does ab HR and BP increasing. Hold ARB due to CARRIE and hyperkalemia. PT/OT to help functional status. Continue with pain control. Recheck CBC in am due to leukocytosis and anemia. Repeat BMP in am due to CARRIE and hyperkalemia. 5/3 Appetite decreased, nausea this morning. Passing flatus, but no stool. No ab pain. Shoulder and pelvic pain varies. Pain medication help some, but need to be cautious with narcotics as will cause confusion. Strength and stability decreased, but was able to be up in chair this morning. Breathing stable. No chest pain. Creatinine decreased to 1.4. Potassium 4.7 with sodium 138. WBC 13.5 with HGB 8.9. Decrease IVF to 75cc/hr. Continue Rocephin secondary to leukocytosis. BP stable - Hold ARB due to CARRIE and hyperkalemia. Continue PT/OT to help functional status. Continue with pain control - change Paoli 5 to 10 as has been getting 2 Paoli 5s at a time. . Recheck CBC in am due to leukocytosis and anemia. Repeat BMP in am due to resolving CARRIE and hyperkalemia. CM looking into detention options for discharge. JAYANT MONROY MD November 11, 2016 14:15
[2016-11-11] MEDS: NORMAL SALINE 1,000 ML IV SCH (14:33)
--- NOTE | 2016-11-11 14:45 | NUR ---
emesis Had a small amt of green bile colored emesis. Medciated with Zofran 4mg sivp. at bedside.
[2016-11-11 15:20] VITALS: BP 153/66; PULSE 76; RESP 20; TEMP 97.8; O2SAT 94
--- NOTE | 2016-11-11 17:55 | NUR ---
co of generalezed discomfort repostioned in bed Narco 10 mg given with crackers to prevent any nauesa. will hole reg insulin if does not dinner will monitor.
--- NOTE | 2016-11-11 19:39 | NUR ---
intake takes jello and few bites of meat entree. Refuses more, stating slight nausea with eating. Will hold meal time insulin
[2016-11-11 20:36] VITALS: O2SAT 96
[2016-11-11] MEDS: NITROGLYCERIN PATCH REMOVAL TD SCH (20:58)
[2016-11-12] VITALS: BP 142/62; PULSE 81; RESP 16; TEMP 98.3; O2SAT 91
--- NOTE | 2016-11-12 01:10 | NUR ---
comfort assisted to reposition. States pain to LUE, [place] given. CPAP placed w/ 4L O2.
[2016-11-12] MEDS: NORMAL SALINE 1,000 ML IV SCH (05:08)
--- NOTE | 2016-11-12 05:10 | NUR ---
rest has slept restfully last few hours. States pain med helpful for rest. Now requests CPAP off and back to 4L/nc.
[2016-11-12 05:38] LABS: BASOPHILS % (AUTO) 0.3 % (0-2); EOSINOPHILS # (AUTO) 0.1 T/MM3 (0-0.5); EOSINOPHILS % (AUTO) 1.2 % (0-4); HCT - HEMATOCRIT 26.3 % (36-46); HGB - HEMOGLOBIN 8.1 GM/DL (12-16); IMMATURE GRANULOCYTE # (AUTO) 0.02 T/MM3 (0.00-0.03); IMMATURE GRANULOCYTE % (AUTO) 0.2 % (0.0-0.5); LYMPHOCYTES # (AUTO) 2.5 T/MM3 (1-4.8); LYMPHOCYTES % (AUTO) 22.2 % (23-45); MEAN CORPUSCULAR HGB 29.8 UUG (26-34); MEAN CORPUSCULAR HGB CONC(MCHC 30.8 GM/DL (31-37); MEAN CORPUSCULAR VOLUME 96.7 UM3 (80-100); MEAN PLATELET VOLUME 9.6 UM3 (9.4-12.4); MONOCYTES % (AUTO) 8.5 % (0-9.0); NEUTROPHILS #(AUTO)-ABSOLUTE 7.6 T/MM3 (1.8-7.7); NEUTROPHILS % (AUTO) 67.6 % (33-66); RED BLOOD COUNT 2.72 M/MM3 (4.00-5.20); WBC - WHITE BLOOD COUNT 11.3 T/MM3 (4.5-11.0)
[2016-11-12 05:48] LABS: ANION GAP 10 MEQ/L (5-15); BUN/CREATININE RATIO 27 RATIO (6-26); CALCIUM 8.8 MG/DL (8.4-10.2); CHLORIDE 106 MEQ/L (98-107); CO2 - CARBON DIOXIDE 25 MEQ/L (22-30); CREATININE 1.4 MG/DL (0.7-1.2); GLOMERULAR FILTRATION RATE 37; GLUCOSE 58 MG/DL (65-110); MAGNESIUM 2.4 MG/DL (1.6-2.3); POTASSIUM 4.5 MEQ/L (3.6-5); SODIUM 141 MEQ/L (134-144)
--- NOTE | 2016-11-12 06:45 | NUR ---
BGM indicates 50. Skin warm and dry, pt. alert, responsive and appropriate. Takes grape juice without difficulty in swallow. Requests PB and banana. Follow up BGM is 124
[2016-11-12 08:00] VITALS: BP 147/65; PULSE 74; PULSE 88; RESP 18; TEMP 99; O2SAT 95
[2016-11-12 08:13] VITALS: O2SAT 96
[2016-11-12] MEDS: ALBUTEROL/IPRATROPIUM INHAL. 2.5mg-0.5mg/3ml Neb. AEROSOL SCH ×4 (08:13→20:42)
[2016-11-12] MEDS: INSULIN GLARGINE 100 UNIT/ML SQ SCH (09:08)
[2016-11-12] MEDS: ASPIRIN 81 MG CHEWABLE TABLET PO SCH (09:09)
[2016-11-12] MEDS: ATENOLOL 25 MG TABLET PO SCH ×2 (09:09→21:07)
[2016-11-12] MEDS: CLOPIDOGREL 75 MG TABLET PO SCH (09:09)
[2016-11-12] MEDS: CEFTRIAXONE 1 G in NORMAL SALINE 100 ML IV SCH (09:10)
[2016-11-12] MEDS: NITROGLYCERIN PATCH REMOVAL TD SCH (09:10)
[2016-11-12] MEDS: NITROGLYCERIN 0.2 MG/HR PATCH TD SCH (09:10)
[2016-11-12] MEDS ORDERED: TORSEMIDE 20 MG TABLET PO ONE (11:45)
--- NOTE | 2016-11-12 12:10 | PNPDOC ---
Subjective Date DATE: 11/12/16 TIME: 12:01 Subjective F/U: Hyperkalemia, CARRIE, Humeral fracture Appetite decrease-not hungry, not eating much. Flatus, but no stool. Not feeling nausea or ab pain. Cherokee helping patient-feels she is tolerating Cherokee well. Breathing stable. No chest pain. No f/c. WBC decreasing. HGB 8.1 this am. Creatinine 1.4. Objective Vital Signs Vital signs Vital Signs Date Time Temp Pulse Resp B/P Pulse Ox O2 Delivery O2 Flow Rate FiO2 11/12/16 11:54 60 11/12/16 11:54 16 11/12/16 08:13 96 11/12/16 08:13 Nasal Cannula 3.00 11/12/16 08:00 99.0 147/65 Height (Feet): 5 Height (Inches): 2.00 Weight (Kilograms): 78.300 General General Appearance: Alert, Obese, Well Nourished, Well Developed, Mild Distress , Looks Stated Age Eyes (Brief) Eyes: FOUND: EOMI, PERRL, NOT FOUND: scleral icterus ENMT (Brief) ENMT: FOUND: hearing intact, mucosa moist Neck (Brief) Neck: FOUND: midline, NOT FOUND: nuchal rigidity, spasm Respiratory (Brief) Respiratory: FOUND: equal bilaterally, NOT FOUND: clear all martinez (Decreased, no distress ), rales, wheezes Cardiovascular (Brief) Cardiac: FOUND: regular rate, regular rhythm, NOT FOUND: pedal edema Abdomen (Brief) Abdominal: FOUND: BS normo active x4, soft, NOT FOUND: distended, tender (Brief) Female: FOUND: other (Guardado in place ) Extremities (Brief) Extremity : Side: Bilateral Extremity: leg Extremity Finding: NOT FOUND: edema Musculoskeletal (Brief) Musculoskeletal: FOUND: loss of motion (Left shoulder ) Integumentary (Brief) Integumentary: FOUND: dry, warm Neurologic (Brief) Neurological: FOUND: cranial 2-12 intact, motor (Intact ) Psychiatric (Brief) Psychiatric: FOUND: alert, attentive, normal affect, oriented Laboratory Laboratory Laboratory Tests 11/11/16 04:29 11/12/16 04:36 Laboratory Tests 11/11/16 04:29 11/12/16 04:36 Assessment & Plan Problems: (1) Hyperkalemia Status: Resolved Assessment & Plan: POA: 6.7 at [facility] with hemolysis - repeat 6.0; 5.9 at [facility] [place]. (2) CARRIE (acute kidney injury) Status: Resolved Assessment & Plan: Baseline 1.8; elevated at 2.3 on admit. (3) Hypernatremia Status: Resolved Assessment & Plan: POA (4) Left humeral fracture Status: Acute Qualifiers: Encounter type: initial encounter Fracture type: closed Fracture morphology: comminuted Fracture alignment: displaced Assessment & Plan: Comminuted fracture of the humeral head and neck (5) Pubic ramus fracture Status: Acute Qualifiers: Encounter type: initial encounter Fracture type: closed Laterality: left Qualified Codes: S32.592A - Other specified fracture of left pubis, initial encounter for closed fracture Assessment & Plan: Minimally displaced fractures through the left superior and inferior pubic rami (6) Fall Status: Acute Qualifiers: Encounter type: initial encounter Qualified Codes: W19.XXXA - Unspecified fall, initial encounter Assessment & Plan: Tripped over O2 tubing on 11/09/16 (7) Leukocytosis Status: Acute Qualifiers: Leukocytosis type: bandemia Qualified Codes: D72.825 - Bandemia Assessment & Plan: POA - ? secondary to UTI vs stress reaction from fracture. 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 transplanted heart: [place] heart Associated angina: without angina Qualified Codes: I25.10 - Atherosclerotic heart disease of [place] coronary artery without angina pectoris (11) Congestive heart failure Status: Chronic Qualifiers: Congestive heart failure type: unspecified congestive heart failure type Congestive heart failure chronicity: chronic Qualified Codes: I50.9 - Heart failure, unspecified (12) Diabetes Status: Chronic Qualifiers: Diabetes mellitus type: type 2 Diabetes mellitus extermination supervisor insulin use: with extermination supervisor use Chronic kidney disease stage: stage 4 (severe) Assessment & Plan: A1C 9.6% (13) Hypertension Status: Chronic Qualifiers: Hypertension type: essential hypertension Qualified Codes: I10 - Essential (primary) hypertension (14) High cholesterol Status: Chronic Assessment & Plan: Addressed with Crestor 20mg daily. (15) Chronic anemia Status: Chronic Assessment & Plan: receives "blood boosting" shots q3 weeks per Dr. Lennon - last one received 1 week prior to admit. (16) CKD (chronic kidney disease), stage IV Status: Chronic (17) Constipation Status: Acute Qualifiers: Constipation type: drug induced constipation Qualified Codes: K59.03 - Drug induced constipation Assessment & Plan: Narcotics and decrease ambulation affecting bowel function. Plan/Intensity of Service D/C IVF. Continue Rocephin secondary to leukocytosis. Will give Demadex 20mg today - takes every other day at home. ARB on hold. Bladder retraining. Decrease evening dose of Lantus to 45 units. Hold regular insulin due to low blood sugars. Continue with PT/OT to help functional status. Add IS to help pulmonary toilet. Continue with pain control - tolerating [place] 10. Recheck CBC in am due to leukocytosis and anemia. Repeat BMP in am due to resolving CARRIE and hyperkalemia. Anticipate d/c to skilled care in near future if continues to do well. Case discussed with CM. Time spent with pt care 35 minutes. DVT Prophylaxis: SCD'S Code Status Do Not Resuscitate Hospital Course Summary Disclaimer The hospital course summary below is not to be considered part of the above Progress Note. Hospital Course Summary 11/09/16 Admit, observation status, under Dr. Monroy. Diagnoses: Acute kidney injury, abnormal EKG, possible UTI, and orthopedic injuries status post fall. IV fluids: Normal saline at 100 mL for Acute kidney injury and hyperkalemia. Monitor for fluid overload, history of CHF. Repeat BMP to reassess creatinine and hyperkalemia. Repeat CBC to follow-up on leukocytosis and anemia. We'll trend troponins and monitor on telemetry. Repeat EKG tomorrow morning. UTI: Repeat UA and sent for culture. Guardado catheter was inserted at [facility], hopefully we can discontinue this tomorrow. Rocephin was initiated at [facility] , will continue this here. Consulted Dr. Sweeney for orthopedic management. Consult PT and OT for evaluation tomorrow morning. May need SNF or IRU given pelvic and humerus fx. Hyperglycemia, Type 2 diabetes: Will monitor blood sugars and resume home medications. For pain control: [place] and IV Dilaudid. Patient has allergies to codeine and morphine. Code status: DNR. 5/2 Doing fair. Pain bothersome, hurts with movement. Was up with therapy. Does not nausea and decreased appetite. Passing flatus. Breathing feels stable-some cough but little congestion. No pain with breathing. No chest pressure or pain. Creatinine decrease to 1.7. Potassium 5.4. WBC 15.0. With continued hyperkalemia and leukocytosis despite treatments initiated in OBS , will change to Inpatient admission status. Continue with IVF due to CARRIE. Will continue Rocephin secondary to leukocytosis. Discussed with Dr Sweeney about her fracture - not looking at surgical intervention. Will restart ASA and Plavix. Restart Home Atenolol does ab HR and BP increasing. Hold ARB due to CARRIE and hyperkalemia. PT/OT to help functional status. Continue with pain control. Recheck CBC in am due to leukocytosis and anemia. Repeat BMP in am due to CARRIE and hyperkalemia. 5/3 Appetite decreased, nausea this morning. Passing flatus, but no stool. No ab pain. Shoulder and pelvic pain varies. Pain medication help some, but need to be cautious with narcotics as will cause confusion. Strength and stability decreased, but was able to be up in chair this morning. Breathing stable. No chest pain. Creatinine decreased to 1.4. Potassium 4.7 with sodium 138. WBC 13.5 with HGB 8.9. Decrease IVF to 75cc/hr. Continue Rocephin secondary to leukocytosis. BP stable - Hold ARB due to CARRIE and hyperkalemia. Continue PT/OT to help functional status. Continue with pain control - change [place] 5 to 10 as has been getting 2 [place] 5s at a time. . Recheck CBC in am due to leukocytosis and anemia. Repeat BMP in am due to resolving CARRIE and hyperkalemia. CM looking into [facility] options for discharge. 5/4 Appetite decrease-not hungry, not eating much. Flatus, but no stool. Not feeling nausea or ab pain. [place] helping patient-feels she is tolerating [place] well. Breathing stable. No chest pain. No f/c. WBC decreasing. HGB 8.1 this am. Creatinine 1.4. D/C IVF. Monitor renal status and potassium without IVF. Continue Rocephin secondary to leukocytosis. Will give Demadex 20mg today - takes every other day at home. ARB on hold. Continue to hold due to resolving CARRIE. Bladder retraining. Decrease evening dose of Lantus to 45 units. Hold regular insulin due to low blood sugars. Continue with PT/OT to help functional status. Add IS to help pulmonary toilet. Continue with pain control - tolerating [place] 10. Recheck CBC in am due to leukocytosis and anemia. Repeat BMP in am due to resolving CARRIE and hyperkalemia. Anticipate d/c to skilled care in near future if continues to do well. JAYANT MONROY MD November 12, 2016 12:04
[2016-11-12] MEDS: SENNA + DOCUSATE TAB PO SCH ×2 (12:12→21:07)
[2016-11-12] MEDS: ONDANSETRON 4mg/2ml INJECTION IV PRN (13:58)
--- NOTE | 2016-11-12 14:00 | NUR ---
CM CM IN TO VISIT WITH PT AND DAUGHTER. THEY WILL LET CM KNOW WHICH SNF FACILITY THEY WOULD LIKE TO USE PRIOR TO WEDNESDAY MORNING.
[2016-11-12 15:47] VITALS: BP 127/48; PULSE 65; RESP 20; TEMP 97.1
--- NOTE | 2016-11-12 18:14 | NUR ---
shift status co of generalized pain medicated with Narco 10 1 po appetitie still remains poor; does drink fairly well.co of naues and Zofran given sivp Attempted to get up to chair max assit of 2 people with p.t. has trouble moving R leg was able to taake a few steps assit up to chair.
--- NOTE | 2016-11-12 18:18 | NUR ---
back to bed with max assit of two medicated with Narco with assit of 2did eat a little better for dinner.
[2016-11-12 20:28] VITALS: RESP 20
[2016-11-12] MEDS: CALCIUM 600mg + VIT D 400 TABLET PO SCH (21:07)
[2016-11-12] MEDS ORDERED: INSULIN GLARGINE 100 UNIT/ML SQ SCH (22:00)
[2016-11-13 00:01] VITALS: BP 166/73; PULSE 73; RESP 16; TEMP 97; O2SAT 94
[2016-11-13 05:17] LABS: BASOPHILS # (AUTO) 0.1 T/MM3 (0-0.2); BASOPHILS % (AUTO) 0.5 % (0-2); EOSINOPHILS # (AUTO) 0.4 T/MM3 (0-0.5); EOSINOPHILS % (AUTO) 3.6 % (0-4); HCT - HEMATOCRIT 28.4 % (36-46); HGB - HEMOGLOBIN 8.8 GM/DL (12-16); IMMATURE GRANULOCYTE # (AUTO) 0.01 T/MM3 (0.00-0.03); IMMATURE GRANULOCYTE % (AUTO) 0.1 % (0.0-0.5); LYMPHOCYTES # (AUTO) 2.2 T/MM3 (1-4.8); LYMPHOCYTES % (AUTO) 21.4 % (23-45); MEAN CORPUSCULAR HGB 29.7 UUG (26-34); MEAN CORPUSCULAR VOLUME 95.9 UM3 (80-100); MEAN PLATELET VOLUME 9.4 UM3 (9.4-12.4); MONOCYTES % (AUTO) 9.1 % (0-9.0); NEUTROPHILS #(AUTO)-ABSOLUTE 6.8 T/MM3 (1.8-7.7); NEUTROPHILS % (AUTO) 65.3 % (33-66); RED BLOOD COUNT 2.96 M/MM3 (4.00-5.20); WBC - WHITE BLOOD COUNT 10.4 T/MM3 (4.5-11.0)
[2016-11-13 05:28] LABS: ANION GAP 9 MEQ/L (5-15); BUN/CREATININE RATIO 28 RATIO (6-26); CALCIUM 9.8 MG/DL (8.4-10.2); CHLORIDE 102 MEQ/L (98-107); CO2 - CARBON DIOXIDE 30 MEQ/L (22-30); CREATININE 1.4 MG/DL (0.7-1.2); GLOMERULAR FILTRATION RATE 37; GLUCOSE 74 MG/DL (65-110); POTASSIUM 4.2 MEQ/L (3.6-5); SODIUM 141 MEQ/L (134-144)
--- NOTE | 2016-11-13 06:00 | NUR ---
BLOOD SUGAR 55 GIVEN REGULAR CORINE MIST
[2016-11-13 07:30] VITALS: O2SAT 99
[2016-11-13] MEDS: ALBUTEROL/IPRATROPIUM INHAL. 2.5mg-0.5mg/3ml Neb. AEROSOL SCH ×2 (07:30→11:34)
--- NOTE | 2016-11-13 07:37 | NUR ---
SUMMARY A&O X3, REPORTS PAIN 8/10, PRN MEDICATION GIVEN ORDERED. ASSIST OF 3 TO MOVE FROM BED TO BED SIDE COMMODE. PT WAS GIVEN AN ENEMA AFTER COMPLAINTS OF NOT BEING ABLE TO HAVE A BOWEL MOVEMENT, PT WAS SUCCESSFUL AND HAD A MEDIUM BM THIS AM.
--- NOTE | 2016-11-13 07:41 | NUR ---
BLOOD SUGAR 93 AFTER LOW SUGAR PT NOW 93
--- NOTE | 2016-11-13 07:42 | NUR ---
CM PER VM FROM PT DAUGHTER, MATTHEW, THEY HAVE DECIDED TO DC TO [facility] FOR SNF.
[2016-11-13 07:52] VITALS: BP 138/65; PULSE 70; TEMP 96.6; O2SAT 95
[2016-11-13 08:01] VITALS: RESP 24
[2016-11-13] MEDS: CLOPIDOGREL 75 MG TABLET PO SCH (08:46)
[2016-11-13] MEDS: ASPIRIN 81 MG CHEWABLE TABLET PO SCH (08:46)
[2016-11-13] MEDS: CALCIUM 600mg + VIT D 400 TABLET PO SCH (08:46)
[2016-11-13] MEDS: SENNA + DOCUSATE TAB PO SCH (08:46)
[2016-11-13] MEDS: ATENOLOL 25 MG TABLET PO SCH (08:46)
[2016-11-13] MEDS: NITROGLYCERIN 0.2 MG/HR PATCH TD SCH (08:47)
[2016-11-13] MEDS: CEFTRIAXONE 1 G in NORMAL SALINE 100 ML IV SCH (08:51)
[2016-11-13] MEDS: INSULIN GLARGINE 100 UNIT/ML SQ SCH (09:00)
--- NOTE | 2016-11-13 10:22 | NUR ---
VITO PADRON LEFT VM FOR PEE AT [facility] TO LET HER KNOW THAT PT WOULD LIKE TO DC TO SNF AT THEIR FACILITY. CM INQUIRED IF 1300 PHOTO ENGRAVER TIME IS STILL IN PLACE.
--- NOTE | 2016-11-13 10:41 | PNPDOC ---
Subjective Date DATE: 11/13/16 TIME: 10:31 Subjective F/U: Hyperkalemia, CARRIE, Humeral fracture Doing okay. Feels like making slow gains each day. Pain still bothersome, but Beatty 10 helping-feels does better than Dilaudid (tolerates Beatty better). No f/ c. Breathing stable. No chest pain. Appetite decreased-not hungry, but tolerating foods/liquids. Did pass stool. Objective Vital Signs Vital signs Vital Signs Date Time Temp Pulse Resp B/P Pulse Ox O2 Delivery O2 Flow Rate FiO2 11/13/16 08:01 24 11/13/16 07:52 96.6 70 138/65 95 Nasal Cannula 3.00 Height (Feet): 5 Height (Inches): 2.00 Weight (Kilograms): 78.300 General General Appearance: Alert, Obese, Orientated x 3, Well Nourished, Well Developed, No Acute Distress, Looks Stated Age Eyes (Brief) Eyes: FOUND: EOMI, PERRL, NOT FOUND: scleral icterus ENMT (Brief) ENMT: FOUND: hearing intact, mucosa moist Neck (Brief) Neck: FOUND: midline, NOT FOUND: nuchal rigidity, spasm Respiratory (Brief) Respiratory: FOUND: clear all martinez, equal bilaterally, NOT FOUND: rales, wheezes Cardiovascular (Brief) Cardiac: FOUND: regular rate, regular rhythm, NOT FOUND: pedal edema Abdomen (Brief) Abdominal: FOUND: BS normo active x4, soft, NOT FOUND: distended, tender (Brief) Female: FOUND: other (Guardado ) Extremities (Brief) Extremity : Side: Bilateral Extremity: leg Extremity Finding: FOUND: other (SCD ), NOT FOUND: edema Musculoskeletal (Brief) Musculoskeletal: FOUND: loss of motion (Decreased ROM of left shoulder), NOT FOUND: spasm Integumentary (Brief) Integumentary: FOUND: dry, warm Neurologic (Brief) Neurological: FOUND: cranial 2-12 intact, motor (Intact ) Psychiatric (Brief) Psychiatric: FOUND: alert, attentive, normal affect, oriented Laboratory Laboratory Laboratory Tests 11/12/16 04:36 11/13/16 04:59 Laboratory Tests 11/12/16 04:36 11/13/16 04:59 Assessment & Plan Problems: (1) Hyperkalemia Status: Resolved Assessment & Plan: POA: 6.7 at [facility] with hemolysis - [place] 6.0[place] [facility] [place] (2) CARRIE (acute kidney injury) Status: Resolved Assessment & Plan: Baseline 1.8; elevated at 2.3 on admit. (3) Hypernatremia Status: Resolved Assessment & Plan: POA (4) Left humeral fracture Status: Acute Qualifiers: Encounter type: initial encounter Fracture type: closed Fracture morphology: comminuted Fracture alignment: displaced Assessment & Plan: Comminuted fracture of the humeral head and neck (5) Pubic ramus fracture Status: Acute Qualifiers: Encounter type: initial encounter Fracture type: closed Laterality: left Qualified Codes: S32.592A - Other specified fracture of left pubis, initial encounter for closed fracture Assessment & Plan: Minimally displaced fractures through the left superior and inferior pubic rami (6) Fall Status: Acute Qualifiers: Encounter type: initial encounter Qualified Codes: W19.XXXA - Unspecified fall, initial encounter Assessment & Plan: Tripped over O2 tubing on 11/09/16 (7) Leukocytosis Status: Acute Qualifiers: Leukocytosis type: bandemia Qualified Codes: D72.825 - Bandemia Assessment & Plan: POA - ? secondary to UTI vs stress reaction from fracture. (8) COPD (chronic obstructive pulmonary disease) Status: Chronic Qualifiers: COPD type: emphysema Emphysema type: unspecified Qualified Codes: J43.9 - Emphysema, unspecified (9) On home O2 Status: Chronic Assessment & Plan: 3L per NC (10) Coronary artery disease Status: Chronic Qualifiers: Coronary Disease-Associated Artery/Lesion type: minto artery [place] vs. transplanted heart: minto heart Associated angina: without angina Qualified Codes: I25.10 - Atherosclerotic heart disease of minto coronary artery without angina pectoris (11) Congestive heart failure Status: Chronic Qualifiers: Congestive heart failure type: unspecified congestive heart failure type Congestive heart failure chronicity: chronic Qualified Codes: I50.9 - Heart failure, unspecified (12) Diabetes Status: Chronic Qualifiers: Diabetes mellitus type: type 2 Diabetes mellitus terminal operations supervisor insulin use: with terminal operations supervisor use Chronic kidney disease stage: stage 4 (severe) Assessment & Plan: A1C 9.6% (13) Hypertension Status: Chronic Qualifiers: Hypertension type: essential hypertension Qualified Codes: I10 - Essential (primary) hypertension (14) High cholesterol Status: Chronic Assessment & Plan: Addressed with Crestor 20mg daily. (15) Chronic anemia Status: Chronic Assessment & Plan: receives "blood boosting" shots q3 weeks per Dr. Lennon - last one received 1 week prior to admit. (16) CKD (chronic kidney disease), stage IV Status: Chronic (17) Constipation Status: Acute Qualifiers: Constipation type: drug induced constipation Qualified Codes: K59.03 - Drug induced constipation Assessment & Plan: Narcotics and decrease ambulation affecting bowel function. Plan/Intensity of Service Will d/c to jail at [facility] - Medically stable, condition improved. May stop Rocephin. Hold ARB due to resolving CARRIE and hypernatremia. Would not restart diuretic until oral drive improves. Can d/c Guardado cath. Continue IS for pulmonary toilet. PT/OT to help improve functional status. Beatty [address] Nguyen to follow while on skilled. See orders for details. Case discussed with CM. Time spent with pt care and discharge 35 minutes. DVT Prophylaxis: SCD'S Code Status Do Not Resuscitate Hospital Course Summary Disclaimer The hospital course summary below is not to be considered part of the above Progress Note. Hospital Course Summary 11/09/16 Admit, observation status, under Dr. Monroy. Diagnoses: Acute kidney injury, abnormal EKG, possible UTI, and orthopedic injuries status post fall. IV fluids: Normal saline at 100 mL for Acute kidney injury and hyperkalemia. Monitor for fluid overload, history of CHF. Repeat BMP to reassess creatinine and hyperkalemia. Repeat CBC to follow-up on leukocytosis and anemia. We'll trend troponins and monitor on telemetry. Repeat EKG tomorrow morning. UTI: Repeat UA and sent for culture. Guardado catheter was inserted at [facility], hopefully we can discontinue this tomorrow. Rocephin was initiated at [facility] , will continue this here. Consulted Dr. wSeeney for orthopedic management. Consult PT and OT for evaluation tomorrow morning. May need SNF or IRU given pelvic and humerus fx. Hyperglycemia, Type 2 diabetes: Will monitor blood sugars and resume home medications. For pain control: Beatty and IV Dilaudid. Patient has allergies to codeine and morphine. Code status: DNR. 5/2 Doing fair. Pain bothersome, hurts with movement. Was up with therapy. Does not nausea and decreased appetite. Passing flatus. Breathing feels stable-some cough but little congestion. No pain with breathing. No chest pressure or pain. Creatinine decrease to 1.7. Potassium 5.4. WBC 15.0. With continued hyperkalemia and leukocytosis despite treatments initiated in OBS , will change to Inpatient admission status. Continue with IVF due to CARRIE. Will continue Rocephin secondary to leukocytosis. Discussed with Dr Sweeney about her fracture - not looking at surgical intervention. Will restart ASA and Plavix. Restart Home Atenolol does ab HR and BP increasing. Hold ARB due to CARRIE and hyperkalemia. PT/OT to help functional status. Continue with pain control. Recheck CBC in am due to leukocytosis and anemia. Repeat BMP in am due to CARRIE and hyperkalemia. 5/3 Appetite decreased, nausea this morning. Passing flatus, but no stool. No ab pain. Shoulder and pelvic pain varies. Pain medication help some, but need to be cautious with narcotics as will cause confusion. Strength and stability decreased, but was able to be up in chair this morning. Breathing stable. No chest pain. Creatinine decreased to 1.4. Potassium 4.7 with sodium 138. WBC 13.5 with HGB 8.9. Decrease IVF to 75cc/hr. Continue Rocephin secondary to leukocytosis. BP stable - Hold ARB due to CARRIE and hyperkalemia. Continue PT/OT to help functional status. Continue with pain control - change Beatty 5 to 10 as has been getting 2 Beatty 5s at a time. . Recheck CBC in am due to leukocytosis and anemia. Repeat BMP in am due to resolving CARRIE and hyperkalemia. CM looking into intermediate options for discharge. 5/4 Appetite decrease-not hungry, not eating much. Flatus, but no stool. Not feeling nausea or ab pain. Beatty helping patient-feels she is tolerating Beatty well. Breathing stable. No chest pain. No f/c. WBC decreasing. HGB 8.1 this am. Creatinine 1.4. D/C IVF. Monitor renal status and potassium without IVF. Continue Rocephin secondary to leukocytosis. Will give Demadex 20mg today - takes every other day at home. ARB on hold. Continue to hold due to resolving CARRIE. Bladder retraining. Decrease evening dose of Lantus to 45 units. Hold regular insulin due to low blood sugars. Continue with PT/OT to help functional status. Add IS to help pulmonary toilet. Continue with pain control - tolerating Beatty 10. Recheck CBC in am due to leukocytosis and anemia. Repeat BMP in am due to resolving CARRIE and hyperkalemia. Anticipate d/c to skilled care in near future if continues to do well. 5/5 Doing okay. Feels like making slow gains each day. Pain still bothersome, but Beatty 10 helping-feels does better than Dilaudid (tolerates Beatty better). No f/ c. Breathing stable. No chest pain. Appetite decreased-not hungry, but tolerating foods/liquids. Did pass stool. WBC normal at 10.4. HGB 8.8. Creatinine 1.4. Potassium 4.2. Will d/c to jail at [facility] - Medically stable, condition improved. May stop Rocephin. Hold ARB due to resolving CARRIE and hypernatremia. Would not restart diuretic until oral drive improves. Can d/c [place] cath. Continue IS for pulmonary toilet. PT/OT to help improve functional status. Beatty [address] Nguyen to follow while on skilled. See orders for details. JAYANT MONROY MD November 13, 2016 10:35
[2016-11-13] MEDS ORDERED: CALC-747 PO (10:44)
[2016-11-13] MEDS ORDERED: HYDR-4078 PO (10:44)
[2016-11-13] MEDS ORDERED: BISA10SU8 RECTALLY (10:44)
[2016-11-13] MEDS ORDERED: INSU100V8 SQ ×2 (10:44)
[2016-11-13] MEDS ORDERED: MAGN400O4 PO (10:44)
--- NOTE | 2016-11-13 10:50 | PDOCECFAO ---
Admission Orders Admission Orders Admit to: Correction Allergies: Coded Allergies: Penicillins (Verified Allergy, Unknown, RASH, 10/09/15) codeine (Verified Allergy, Unknown, 10/09/15) morphine (Verified Allergy, Unknown, LOW BP, 'OUT OF IT', 10/09/15) Admitting Diagnosis Right Humerus Fx, Abimael Admitting Physician Markie Monroy MD Attending Physician Dr Nguyen Code Status Do Not Resuscitate Anticipated LOS: 30 days or less Rehab Potential: Fair Rehab Prognosis: Fair Diet: No Salt Added, No Concentrated Sweets May use Facility Protocol /SO: Yes May Have Flu Vaccine: Yes Evaluations/Treat: PT, OT Correction Certification I certify that SNF services are required to be given on an Inpatient basis because of the patients need for shelter care on a continuing basis for the condition(s) for which he/she received inpatient hospital services prior to his/her transfer to the SNF. SNF inpatient care is necessary for the following reasons Diabetic Assessment, Med Admininistration, Diabetic Education, Teach Med Managment, Teach DM Management, Teach COPD Management, Other (Skilled PT/OT to help maximize functional status.) Cardiac or Respiratory Arrest In Event of Arrest: Do Not Start CPR Resident is Aware of Diagnosis: Yes Additional Orders: Dr Nguyen to follow on Skilled Dr Sweeney in 2 weeks for ortho evaluation. Keep left arm in sling. WBAT. Use IS QID. O2 at 3L per NC. Accucheck ac meals, hs, and prn. Hold Torosemide until oral drive improves. Hold Losartan due to recent ABIMAEL and hyperkalemia - recommend monitoring BMP once restarted. MARKIE MONROY MD November 13, 2016 10:50
--- NOTE | 2016-11-13 11:20 | NUR ---
VITO DC TIME OUT COMPLETED WITH LYNSEY WHITE.
--- NOTE | 2016-11-13 11:37 | NUR ---
VITO PADRON SPOKE WITH PEE AT [facility]. THEY PLAN TO TRANSPORT PT AT 1300. VITO CALLED BACK AND LET MESSAGE FOR PEE THAT PT WILL NEED W/C AND O2. VITO IN TO VISIT WITH PT AND SPOUSE. THEY ARE MADE AWARE THAT 1300 TRANSPORT TIME IS PLANNED. PT VERBALIZED UNDERSTANDING. Addendum: 11/13/16 at 1138 by CHEVY PETIT RN Amended: Links added.
--- NOTE | 2016-11-13 12:05 | PDORTHOPN ---
Subjective Date DATE: 11/13/16 TIME: 12:03 Subjective Shoulder pain improving. Slow progress with PT has not had any significant ambulation. Hand numbness resolved. Objective Vital Signs Vital signs Vital Signs 11/13/16 11/13/16 11/13/16 11/13/16 07:30 07:30 07:40 07:52 Temp 96.6 Pulse 64 68 70 Resp 20 B/P 138/65 Pulse Ox 99 95 O2 Delivery Nasal Cannula O2 Flow Rate 3.00 11/13/16 11/13/16 11/13/16 11/13/16 08:01 11:34 11:34 11:41 Pulse 76 80 Resp 24 20 Height (Feet): 5 Height (Inches): 2.00 Weight (Kilograms): 76.200 General General Appearance: Well Nourished, Well Developed Respiratory (Brief) Respiratory Brief: FOUND: non-labored Cardiovascular (Brief) Cardiac: FOUND: calf easily compressible, calf soft, nontender, pedal pulses intact Integumentary (Brief) Integumentary Brief: FOUND dry, FOUND pink, FOUND warm Laboratory Laboratory Laboratory Tests 11/12/16 04:36 11/13/16 04:59 Laboratory Tests 11/12/16 04:36 11/13/16 04:59 Assessment & Plan Problems: (1) Pubic ramus fracture Status: Acute Qualifiers: Encounter type: initial encounter Fracture type: closed Laterality: left Qualified Codes: S32.592A - Other specified fracture of left pubis, initial encounter for closed fracture Assessment & Plan: WBAT with repeat films after ambulating 50 feet (2) Left humeral fracture Status: Acute Qualifiers: Encounter type: initial encounter Fracture type: closed Fracture morphology: comminuted Fracture alignment: displaced Assessment & Plan: Because of multiple medical problems and poor bone quality , I recommended a trial of nonoeperative treatment. May work on ROM of left elbow and wrist but no PT for shoulder at this time. Sling as needed. I would like to review new films to see if alignment has improved before discharge. Hospital Course Summary Disclaimer The visit summary below is not to be considered part of the above Progress Note. Hospital Course 11/09/16 Admit, observation status, under Dr. Monroy. Diagnoses: Acute kidney injury, abnormal EKG, possible UTI, and orthopedic injuries status post fall. IV fluids: Normal saline at 100 mL for Acute kidney injury and hyperkalemia. Monitor for fluid overload, history of CHF. Repeat BMP to reassess creatinine and hyperkalemia. Repeat CBC to follow-up on leukocytosis and anemia. We'll trend troponins and monitor on telemetry. Repeat EKG tomorrow morning. UTI: Repeat UA and sent for culture. Guardado catheter was inserted at [facility], hopefully we can discontinue this tomorrow. Rocephin was initiated at [facility] , will continue this here. Consulted Dr. Sweeney for orthopedic management. Consult PT and OT for evaluation tomorrow morning. May need SNF or IRU given pelvic and humerus fx. Hyperglycemia, Type 2 diabetes: Will monitor blood sugars and resume home medications. For pain control: Sunflower and IV Dilaudid. Patient has allergies to codeine and morphine. Code status: DNR. 5/2 Doing fair. Pain bothersome, hurts with movement. Was up with therapy. Does not nausea and decreased appetite. Passing flatus. Breathing feels stable-some cough but little congestion. No pain with breathing. No chest pressure or pain. Creatinine decrease to 1.7. Potassium 5.4. WBC 15.0. With continued hyperkalemia and leukocytosis despite treatments initiated in OBS , will change to Inpatient admission status. Continue with IVF due to CARRIE. Will continue Rocephin secondary to leukocytosis. Discussed with Dr Sweeney about her fracture - not looking at surgical intervention. Will restart ASA and Plavix. Restart Home Atenolol does ab HR and BP increasing. Hold ARB due to CARRIE and hyperkalemia. PT/OT to help functional status. Continue with pain control. Recheck CBC in am due to leukocytosis and anemia. Repeat BMP in am due to CARRIE and hyperkalemia. 5/3 Appetite decreased, nausea this morning. Passing flatus, but no stool. No ab pain. Shoulder and pelvic pain varies. Pain medication help some, but need to be cautious with narcotics as will cause confusion. Strength and stability decreased, but was able to be up in chair this morning. Breathing stable. No chest pain. Creatinine decreased to 1.4. Potassium 4.7 with sodium 138. WBC 13.5 with HGB 8.9. Decrease IVF to 75cc/hr. Continue Rocephin secondary to leukocytosis. BP stable - Hold ARB due to CARRIE and hyperkalemia. Continue PT/OT to help functional status. Continue with pain control - change Sunflower 5 to 10 as has been getting 2 Sunflower 5s at a time. . Recheck CBC in am due to leukocytosis and anemia. Repeat BMP in am due to resolving CARRIE and hyperkalemia. CM looking into [facility] options for discharge. 5/4 Appetite decrease-not hungry, not eating much. Flatus, but no stool. Not feeling nausea or ab pain. Sunflower helping patient-feels she is tolerating Sunflower well. Breathing stable. No chest pain. No f/c. WBC decreasing. HGB 8.1 this am. Creatinine 1.4. D/C IVF. Monitor renal status and potassium without IVF. Continue Rocephin secondary to leukocytosis. Will give Demadex 20mg today - takes every other day at home. ARB on hold. Continue to hold due to resolving CARRIE. Bladder retraining. Decrease evening dose of Lantus to 45 units. Hold regular insulin due to low blood sugars. Continue with PT/OT to help functional status. Add IS to help pulmonary toilet. Continue with pain control - tolerating Sunflower 10. Recheck CBC in am due to leukocytosis and anemia. Repeat BMP in am due to resolving CARRIE and hyperkalemia. Anticipate d/c to skilled care in near future if continues to do well. 5/5 Doing okay. Feels like making slow gains each day. Pain still bothersome, but Sunflower 10 helping-feels does better than Dilaudid (tolerates Sunflower better). No f/ c. Breathing stable. No chest pain. Appetite decreased-not hungry, but tolerating foods/liquids. Did pass stool. WBC normal at 10.4. HGB 8.8. Creatinine 1.4. Potassium 4.2. Will d/c to custodial at [facility] - Medically stable, condition improved. May stop Rocephin. Hold ARB due to resolving CARRIE and hypernatremia. Would not restart diuretic until oral drive improves. Can d/c Guardado cath. Continue IS for pulmonary toilet. PT/OT to help improve functional status. Sunflower [address] Nguyen to follow while on skilled. See orders for details. ALAN SWEENEY MD November 13, 2016 12:05
--- NOTE | 2016-11-13 12:52 | DI ---
Indication: ITS.REASON: fracture PROCEDURE: SHOULDER LEFT 3 VIEWS: Encounter: Initial Comparison: Shoulder radiographs dated November 10, 2016 Findings: Comminuted impacted and displaced fracture of the left humeral head is again seen extending into the surgical neck. Overall alignment is stable. No new fracture or dislocation. Impression: Stable alignment of the left proximal humeral fracture. .
--- NOTE | 2016-11-13 13:00 | NUR ---
Discharge Patient discharged to [facility]. Patient alert and oriented. Weak transfer, states her legs just won't move. Up with 2-3 people. Attempted to call report, will call back. IV dc'd, cath intact. Guardado cath removed, has not voided since removal.
--- NOTE | 2016-11-13 13:02 | NUR ---
MNT r/t DM2 A1c: 9.6; Insulin: Lantus:45 units BID; Humalog 24 units TID; RD attempted to visit with patient, who had just opened her lunch. She could not eat what was set before her. RD asked what was really hungry for, and she stated PB & banana. RD obtained from Dietary, just as pt was being dismissed to [facility].
[2016-11-14] MEDS ORDERED: INSULIN GLARGINE 100 UNIT/ML SQ SCH (09:00)
--- NOTE | 2016-11-14 09:53 | DSF ---
ADMISSION DIAGNOSIS Hyperkalemia (present on admission). DISCHARGE DIAGNOSIS Hyperkalemia--resolved. ASSOCIATED CONDITIONS AND COMPLICATIONS Acute kidney injury--resolved. Stage IV chronic kidney disease. Hypernatremia (present on admission)--resolved. Leukocytosis (present on admission)--resolved. Left humeral fracture. Pubic ramus fracture. Fall secondary to loss of footing. COPD. Chronic respiratory insufficiency--patient dependent on 3 liters of oxygen per nasal cannula. Coronary artery disease. CHF--NOS. Type 2 diabetes mellitus--insulin-requiring. Hypertension. Hyperlipidemia. Chronic anemia. Constipation. Gait instability. PROCEDURES None. CONSULTS Dr. Sweeney--Orthopedic Surgery. PT, OT. CLINICAL RESUMAmira Ramirez is a 41-year-old female who resides independently. She chronically uses oxygen at 3 liters. Morning of presentation while talking on the phone, she tripped over her oxygen tubing and landed on her left side. She denies hitting her head or losing consciousness. She was unable to stand up after the fall--EMS was activated. She was taken to [facility] Emergency Department for evaluation. There she was diagnosed with left proximal humerus fracture. She was also diagnosed with pubic rami fractures. Chest x-ray obtained secondary to bruising under her left breast showed hyperinflation with linear atelectasis but no acute process. Lab did reveal elevation of creatinine at 2.3 (with baseline around 1.8). Potassium was also elevated at 6.0. Blood sugar was quite high at 556. White blood count was elevated. UA was worrisome for potential infection, so she was started on Rocephin 1 gram IV. In light of her multiple acute problems, she was transferred to [facility] for definitive care. Upon arrival to [facility], she does have significant pain--did receive 50 mcg of fentanyl en route. Her left arm is immobilized in a sling. She notes a dry mouth and states she has not had anything to eat or drink since last night. She reports recent "flu-like" illness over the weekend--describes this as stomach upset and body aches. She has not had fevers, chills, or respiratory symptoms. She denies chest pain. She has not had nausea, vomiting, or diarrhea. She denies dysuria. She denies feeling weak or dizzy. She reports her fall occurred simply because she tripped over the oxygen tubing (feeling embarrassed about this). For complete details of the H&P refer to that document. LABORATORY White blood count is 16.5, with 79% neutrophils and 14% bands. Hemoglobin is 11.0, with hematocrit 35.1, MCV 97.2, and platelets 391,000. Serum sodium is 147, potassium 5.9, chloride 105, CO2 26, BUN 62, with creatinine 2.0, GFR 24, and blood glucose 446. A1c is 9.6%. Transaminases are unremarkable. Troponin I 0.041. UA reveals 1+ protein, 3+ glucose, 2+ blood. 25 OH vitamin D total was drawn at [facility] but results are pending as it is sent out. HOSPITAL COURSE Patient was placed in outpatient observation status at [facility] under the care of Dr. Monroy. In light of her acute kidney injury, she was initiated on normal saline. IV fluids were subsequently changed to half-normal saline in light of her hypernatremia. We did monitor lab. Rocephin was continued for her leukocytosis. Guardado catheter was placed secondary to acute kidney injury. We consulted with Dr. Sweeney for Orthopedic Management. He did repeat x-rays and discussed case with his colleagues. Ultimately he elected against any surgical intervention for her humeral fracture. He did recommend PT/ OT to help with mobilization and consult was placed. Dilaudid and York were made available as needed for pain. She was made DNR at time of presentation as per request. By hospital day #1, she was doing fair--pain was still bothersome, with discomfort with movement. She was able to participate with therapy. Creatinine was showing some decrease but potassium was still elevated at 5.4. White count was still elevated at 15.0. In light of her continued hyperkalemia and leukocytosis despite treatments initiated in observation, admission status was changed to inpatient. Treatments initiated in observation were continued. As blood pressure was showing some elevation, we did restart her home atenolol but held her ARB and diuretic secondary to her acute kidney injury. Her hospitalization was one of gradual improvement. We were able to wean down and ultimately discontinue IV fluids. Renal function did normalize at 1.4 and potassium normalized as well. She was able to maintain normal potassium and creatinine off of IV fluids. Pain medications were adjusted--York was increased to 10/325 every four hours which seemed to be adequately controlling her pain but also agreeing well with her as she felt the Dilaudid caused too much fuzziness and confusion. Respiratory status did well, and she was breathing on her baseline oxygen. Incentive spirometer was added to help with pulmonary toilet. By time of discharge, vitals were stable and she was afebrile. We did see her white count normalize at 10.4. Hemoglobin was stable at 8.8. Creatinine had improved to 1.4, and her potassium was normal at 4.5. Blood sugars had been running low during the hospitalization. We did not initiate her mealtime insulin and did back down her Lantus from 50 to 45 units. Case Management had made arrangements for skilled care at [place]. In light of patient's clinical improvement and stability, she was able to be discharged to [place] for continuation of restorative modalities. NARRATIVE DISCLAIMER: Above narrative is a brief summary of the patient's hospitalization. For complete details of the hospital course, refer to the medical record. DISCHARGE CONDITION Stable/good. DIET Low sodium, no-added salt. ACTIVITIES Keep left arm in sling, weightbearing as tolerated. MEDICATIONS Lantus 45 units subcutaneous b.i.d. York 10/325 one q.4h. p.r.n. pain. Calcium with vitamin D 600/400 mg b.i.d. Dulcolax 10 mg AK daily p.r.n. constipation. Milk of magnesia 30 mL daily p.r.n. constipation. Aspirin 81 mg daily. Atenolol 25 mg b.i.d. Plavix 75 mg daily. Vitamin B12 1000 mcg daily. Neurontin 300 mg t.i.d. Atrovent q.i.d. p.r.n. shortness of air. Nitroglycerin patch 0.2 mg/hour on in morning, off at night. MiraLAX 17 grams daily. Crestor 20 mg q.h.s. Senna Plus two tablets b.i.d. Stop Losartan--secondary to resolving AKA. Hold furosemide 20 mg every other day--oral drive decreased. FOLLOWUP Patient will follow up with Dr. Nguyen while on residential. Patient will follow with Dr. Sweeney in approximately two weeks for orthopedic reevaluation. Patient may follow with Dr. Saini in two months for bone health evaluation. INSTRUCTIONS TO PATIENT Patient was instructed on her diagnoses and treatments provided. We discussed lab findings. We discussed rationale behind holding her diuretic and ARB. We encouraged her to participate well with therapy. She will watch for temperature elevation greater than 100.4. She will watch for new or worsening hip or shoulder pain. Should these or other problems or need occur, she can be in contact with the nursing staff at [facility] as well as with her primary providers. If symptoms become quite dire, she could present to emergency room for acute evaluation. She voiced understanding of the above. Time spent with discharge greater than 35 minutes. NGUYỄN
== END 2016-11-13 13:00 | DRG 641 ==
LOC: MED 15:52 → INTOOBSV 15:52 → OBSVTOIN 11-10 09:20
PROVIDERS: ADMIT Hospitalist; ATTEND Hospitalist
DX: E87.5 Hyperkalemia (principal); I13.0 Hypertensive heart and chronic kidney disease with heart failure and stage 1 through stage 4 chronic kidney disease, or unspecified chronic kidney disease; N18.4 Chronic kidney disease, stage 4 (severe); N17.9 Acute kidney failure, unspecified; S32.592A Other specified fracture of left pubis, initial encounter for closed fracture; S42.212A Unspecified displaced fracture of surgical neck of left humerus, initial encounter for closed fracture; S42.292A Other displaced fracture of upper end of left humerus, initial encounter for closed fracture; I25.10 Atherosclerotic heart disease of native coronary artery without angina pectoris; I50.9 Heart failure, unspecified; E11.22 Type 2 diabetes mellitus with diabetic chronic kidney disease; J44.9 Chronic obstructive pulmonary disease, unspecified; Z99.81 Dependence on supplemental oxygen; Z66 Do not resuscitate; R26.89 Other abnormalities of gait and mobility; Z79.4 Long term (current) use of insulin; Z79.82 Long term (current) use of aspirin; Z87.891 Personal history of nicotine dependence; D64.9 Anemia, unspecified; E78.00 Pure hypercholesterolemia, unspecified; E66.9 Obesity, unspecified; Z68.30 Body mass index [BMI] 30.0-30.9, adult; W01.0XXA Fall on same level from slipping, tripping and stumbling without subsequent striking against object, initial encounter; Y93.01 Activity, walking, marching and hiking; Y92.019 Unspecified place in single-family (private) house as the place of occurrence of the external cause; Y99.8 Other external cause status
CPT/HCPCS: 36415; 80048; 80053; 81001; 82306; 82948; 83036; 83735; 84484; 85025; 93005; 94640; 96361; 96372; 96374; 99218